=== PATIENT | female | born 1980 | race Caucasian/White ===

== ENCOUNTER 2016-05-10 09:41 | Emergency (ER) | payer OTHER ==
[2016-05-10] MEDS ORDERED: NAPROXEN 250 MG TABLET PO ONE (10:23)
[2016-05-10 10:50] VITALS: BP 141/89
--- NOTE | 2016-05-10 10:58 | ER Document Report ---
ED Oral Problem - General Chief Complaint: Mouth Problem Stated Complaint: MOUTH PAIN Mode of Arrival: Ambulatory Information source: Patient Notes: 35-year-old female presents to the emergency department complaining of right upper anterior dental pain. Patient reports had 3 teeth extracted 4 days ago and was prescribed Keflex and pain medication which she reports was taking as prescribed but states has run out of pain medication and pain has persisted . Denies fever, swelling, drainage, difficulty breathing or swallowing. TRAVEL OUTSIDE OF THE [place] IN LAST 30 DAYS: No - HPI Patient complains to provider of: Toothache Onset: Last week Quality of pain: Achy Severity: Moderate Pain Level: 3 Context: Recent dental extractions Associated symptoms: Dental decay, Toothache Similar symptoms previously: Yes Recently seen / treated by doctor/dentist: Yes - Related Data Allergies/Adverse Reactions: No Known Allergies Allergy (Verified 04/19/16 14:14) Past Medical History - General Information source: Patient - Social History Smoking Status: Former Smoker Chew tobacco use (# tins/day): No Frequency of alcohol use: None Drug Abuse: None Lives with: Family Family History: Reviewed & Not Pertinent Patient has suicidal ideation: No Patient has homicidal ideation: No Renal/ Medical History: Reports: Hx Kidney Stones Psychiatric Medical History: Reports: Hx Anxiety, Hx Bipolar Disorder Comment Only: Hx Depression - ANxiety Past Surgical History: Reports: Hx Breast Surgery - augmentation, Hx Hysterectomy, Hx Orthopedic Surgery - L5S1 fusion - Immunizations Immunizations up to date: No Hx Diphtheria, Pertussis, Tetanus Vaccination: Yes Review of Systems - Review of Systems Constitutional: No symptoms reported EENT: See HPI Cardiovascular: No symptoms reported Respiratory: No symptoms reported Gastrointestinal: No symptoms reported Genitourinary: No symptoms reported Female Genitourinary: No symptoms reported Musculoskeletal: No symptoms reported Skin: No symptoms reported Hematologic/Lymphatic: No symptoms reported Neurological/Psychological: No symptoms reported -: Yes All other systems reviewed and negative Physical Exam - Vital signs Vitals: Temp Pulse Resp BP Pulse Ox 98.8 F 121 H 18 139/102 H 98 05/10/16 09:46 05/10/16 09:46 05/10/16 09:46 05/10/16 09:46 05/10/16 09:46 - General General appearance: Appears well, Alert In distress: None - HEENT Head: Normocephalic, Atraumatic Eyes: Normal Eyelashes: Normal Pupils: PERRL Ears: Normal External canal: Normal Tympanic membrane: Normal Sinus: Normal Nasal: Normal Mouth/Lips: Caries. No: Normal, Angioedema, Dental fracture, Laceration, Lesions, Other Mucous membranes: Normal, Moist Teeth diagram: 1 - Localized tenderness to palpation at area of dental extraction. No swelling, drainage, or fluctuance. Moderate diffuse dental decay throughout mouth with multiple missing teeth. Pharynx: Normal. No: Blood in hypopharynx, Erythema, Exudate, Peritonsillar abscess, Post nasal drainage, Retropharyngeal abscess, Tonsillar hypertrophy, Uvular edema, Potential airway comprom., Other Neck: Normal. No: Anterior cervical chain, Posterior cervical chain, Lymphadenopathy, Meningismus, Subcutaneous emphysema - Respiratory Respiratory status: No respiratory distress Chest status: Nontender Breath sounds: Normal Chest palpation: Normal - Cardiovascular Rhythm: Regular Heart sounds: Normal auscultation Murmur: No Pulses: Normal: Radial Normal capillary refill: Yes Course - Re-evaluation Re-evalutation: 05/10/16 10:59 Patient hemodynamically stable, in no distress, afebrile. No abscess, trismus, or suggestion of significant deep space or soft tissue infection at this time. Home care, follow-up with PCP and dental provider, ED return precautions discussed with patient who verbalized understanding and agrees with plan. - Vital Signs Vital signs: Temp Pulse Resp BP Pulse Ox 98.8 F 107 H 18 141/89 H 96 05/10/16 09:46 05/10/16 10:48 05/10/16 10:48 05/10/16 10:48 05/10/16 10:48 Discharge - Discharge Clinical Impression: Pain, dental Condition: Stable Disposition: HOME, SELF-CARE Additional Instructions: TOOTHACHE: Your pain is due to dental decay. The tooth must be repaired in order for you to feel better. You will, therefore, be referred to a dentist. We do not have dentists on the staff at [facility]. Severe swelling or drainage around a tooth usually means a dental abscess. This also requires evaluation and treatment by the dentist, but antibiotics may be prescribed while awaiting dental treatment. You should be rechecked immediately if you develop major swelling of the face, increasing pain, a lump in the jaw or gums, headache, difficulty swallowing, or fever. Anti-Inflammatory Medication You have received a prescription for an antiinflammatory agent. This is an excellent, safe drug for pain control. In addition, it has potent antiinflammatory effects which are beneficial, especially in the treatment of injuries, arthritis, or tendonitis. It's best to take this medicine with food. Persons with ulcer disease or allergy to aspirin should notify their physician of this before taking this drug. Take the medication exactly as prescribed. Don't take additional doses unless instructed to do so by your doctor. If you develop wheezing, shortness of breath, hives, faintness, stomach pain, vomiting, or dark black stools, return for re-evaluation at once. FOLLOW-UP CARE: Continue taking your previously prescribed antibiotic as directed. Follow-up with your dental provider tomorrow. If you are unable to follow-up with your dental provider you may contact any of the clinics below to schedule a follow-up appointment. If you experience worsening or a significant change in your symptoms, notify the physician immediately or return to the Emergency Department at any time for re-evaluation. [facility] [address] [place], [place] Wednesday mornings, by appointment [facility] [address] [place] [address] [facility] [address] [facility] [address] [facility] ([facility]) [facility], [place] [facility] [address] [email or web address] [address] [place] [address] Wednesday- 8:00am to 5:00 pm Will see patients from other [facility]. Charges based on income and family size and accepts Medicare, Medicaid, and Insurances Will pull molars [facility] [id number] Hours of Operation 8:00 am - 4:30 pm weekdays The following dental offices accept Medicaid: [facility] Dr. Albert Dr. Diaz Dr. Thomson Dr. Lanier Lauro Hurt Lutsavage, and [facility] Dr. Carbajal ([place]) Dr. Gordon ([place]) [facility] Drs. Moulton ([place]) Dr. Blue ([place]) [facility] Dr. Pacheco ([place]) Drs. Huerta and ([place]) Medicaid Care Line Prescriptions: Naproxen [Naprosyn 375 Mg Tablet] 375 mg PO BIDP PRN #10 tablet PRN Reason: Forms: Elevated Blood Pressure Referrals: MARVA ADAM [Primary Care Provider] - Follow up tomorrow
== END 2016-05-10 11:05 | disposition home or self-care (01) ==
LOC: ER 09:41
DX: K08.89 Other specified disorders of teeth and supporting structures (principal); Z87.891 Personal history of nicotine dependence
CPT/HCPCS: 99282

== ENCOUNTER 2017-04-07 14:28 | Emergency (ER) | payer OTHER ==
[2017-04-07 14:35] VITALS: BP 141/82
[2017-04-07] MEDS ORDERED: OXYCODONE-ACETAMINOPHEN 5-325 MG TABLET PO ONE (15:52)
[2017-04-07] MEDS ORDERED: LIDOCAINE 5% (700 MG) TRANSDERMAL ADH..PATCH TP ONE (15:52)
--- NOTE | 2017-04-07 15:56 | ER Document Report ---
HPI - HPI Patient complains to provider of: Low back pain Onset: Other - 3 weeks Onset/Duration: Persistent Quality of pain: Sharp Pain Level: 5 Context: Patient presents complaining of low back pain for the past 3 weeks. Patient states pain will radiate into her left lower extremity. Patient does have a previous history of chronic low back pain and this is in the same location as her previous flareups. Patient denies any new injury. Patient denies any urinary retention or incontinence. Patient denies any fever or IV drug use. Associated Symptoms: Other - Low back pain. denies: Fever Exacerbated by: Movement, Walking Relieved by: Denies Similar symptoms previously: Yes Recently seen / treated by doctor: No - ROS ROS below otherwise negative: Yes Systems Reviewed and Negative: Yes All other systems reviewed and negative - CONSTITUTIONAL Constitutional: DENIES: Fever - NEURO Neurology: DENIES: Weakness - REPRODUCTIVE Reproductive: DENIES: : - MUSCULOSKELETAL Musculoskeletal: REPORTS: Extremity pain, Back Pain. DENIES: Swelling - DERM Skin Color: Normal Skin Problems: None Past Medical History - General Information source: Patient - Social History Smoking Status: Current Every Day Smoker Chew tobacco use (# tins/day): No Smoking Education Provided: Yes Frequency of alcohol use: Occasional Drug Abuse: None Occupation: None Lives with: Family Family History: Reviewed & Not Pertinent Patient has suicidal ideation: No Patient has homicidal ideation: No Renal/ Medical History: Reports: Hx Kidney Stones. Denies: Hx Peritoneal Dialysis Musculoskeltal Medical History: Reports Other - Chronic back pain Psychiatric Medical History: Reports: Hx Anxiety, Hx Bipolar Disorder Comment Only: Hx Depression - ANxiety Past Surgical History: Reports: Hx Breast Surgery - augmentation, Hx Hysterectomy, Hx Orthopedic Surgery - L5S1 fusion - Immunizations Immunizations up to date: No Hx Diphtheria, Pertussis, Tetanus Vaccination: Yes Vertical Provider Document - CONSTITUTIONAL Agree With Documented VS: Yes Exam Limitations: No Limitations General Appearance: WD/WN, No Apparent Distress Notes: PHYSICAL EXAMINATION: GENERAL: Well-appearing, well-nourished and in no acute distress. HEAD: Atraumatic, normocephalic. EYES: sclera clear, anicteric, conjunctiva are normal. ENT: nares patent, Moist mucous membranes. NECK: Normal range of motion, supple no lymphadenopathy LUNGS: respirations unlabored HEART: Regular rate and rhythm without murmurs EXTREMITIES: Normal range of motion, no pitting or edema. No cyanosis. Gait normal, pt ambulates without difficulty BACK: Left lower lumbar paraspinal tenderness, no lower lumbar midline tenderness, no deformities or step-offs. No CVA tenderness. NEUROLOGICAL: Cranial nerves grossly intact. Normal speech, normal gait. No saddle anesthesia. No foot drop PSYCH: Normal mood, normal affect. SKIN: Warm, Dry, normal turgor, no rashes or lesions noted. - INFECTION CONTROL TRAVEL OUTSIDE OF THE [place] IN LAST 30 DAYS: No - RESPIRATORY O2 Sat by Pulse Oximetry: 99 Course - Re-evaluation Re-evalutation: 04/07/17 15:53 The patient has been informed that they may have pre-hypertension or hypertension based on a blood pressure reading in the emergency department. I recommend that patient call the primary care provider listed on their discharge instructions or a physician of their choice by this week to arrange follow-up for further evaluation of possible pre-hypertension or hypertension. Controlled substance database reviewed 04/07/17 15:55 Patient advised not to take the pain medication she is taking her Klonopin. Patient advised to take one medication or the other not both together. The patient presents with low back pain without signs of spinal cord compression, cauda equina syndrome, infection, aneurysm, or other serious etiology. The patient is neurologically intact. Given the extremely risk of these diagnoses further testing and evaluation for these possibilities does not appear to be indicated at this time. Patient has been instructed to return if the symptoms worsen or change in any way. - Vital Signs Vital signs: Temp Pulse Resp BP Pulse Ox 98.0 F 88 18 141/82 H 99 04/07/17 14:34 04/07/17 14:34 04/07/17 14:34 04/07/17 14:34 04/07/17 14:34 Discharge - Discharge Clinical Impression: Elevated blood pressure reading Low back pain Qualifiers: Chronicity: unspecified Back pain laterality: left Sciatica presence: with sciatica Sciatica laterality: sciatica of left side Qualified Code(s): M54.42 - Lumbago with sciatica, left side Condition: Stable Disposition: HOME, SELF-CARE Instructions: Ice Packs ([facility]), Low Back Pain ([facility]), Oral Narcotic Medication ( [facility]) Additional Instructions: Return immediately for any new or worsening symptoms Followup with your primary care provider, call tomorrow to make a followup appointment Prescriptions: Oxycodone HCl/Acetaminophen [Percocet 5-325 mg Tablet] 1 tab PO ASDIR PRN #12 tablet PRN Reason: Prednisone [Deltasone 20 mg Tablet] 3 tab PO DAILY 5 Days tablet Forms: Elevated Blood Pressure, Smoking Cessation Education Referrals: ANAYELI ADAM MD [NO LOCAL MD] - Follow up as needed MARVA ADAM PA [NO LOCAL MD] - Follow up as needed
== END 2017-04-07 16:16 | disposition home or self-care (01) ==
LOC: ER 14:28
DX: M54.42 Lumbago with sciatica, left side (principal); R03.0 Elevated blood-pressure reading, without diagnosis of hypertension; F41.9 Anxiety disorder, unspecified; Z79.899 Other long term (current) drug therapy; F17.200 Nicotine dependence, unspecified, uncomplicated; Z71.6 Tobacco abuse counseling
CPT/HCPCS: 99283

== ENCOUNTER 2017-05-10 11:26 | Emergency (ER) | payer OTHER ==
[2017-05-10] MEDS ORDERED: DEXAMETHASONE SOD PHOS INJ 10 MG/1 ML VIAL IM ONE (12:27)
[2017-05-10] MEDS ORDERED: LIDOCAINE 5% (700 MG) TRANSDERMAL ADH..PATCH TP ONE (12:27)
--- NOTE | 2017-05-10 14:00 | RADIOLOGY REPORT (SQ) ---
EXAM DESCRIPTION: L SPINE WHOLE COMPLETED DATE/TIME: 05/10/2017 1:26 pm REASON FOR STUDY: Pain to the low back worse down the left leg COMPARISON: None. NUMBER OF VIEWS: Five views including obliques. TECHNIQUE: AP, lateral, oblique, and sacral radiographic images acquired of the lumbar spine. LIMITATIONS: None. FINDINGS: MINERALIZATION: Normal. SEGMENTATION: Normal. No transitional anatomy. ALIGNMENT: Normal. VERTEBRAE: Maintained height. No fracture or worrisome bone lesion. DISCS: Prior discectomy and fusion at L5-S1 with disc space prosthesis and bilateral L5 and S1 transp edicular screws with dorsal fixation plates POSTERIOR ELEMENTS: Pedicles and facets are intact. No pars defect or posterior arch defects. HARDWARE: Fusion hardware at L5-S1 PARASPINAL SOFT TISSUES: Normal. PELVIS: Intact as visualized. No fractures or worrisome bone lesions. SI joints intact. OTHER: No other significant finding. IMPRESSION: Old fusion at L5-S1. No acute findings TECHNICAL DOCUMENTATION: JOB ID: [id number]- All Rights Reserved
--- NOTE | 2017-05-10 14:43 | ER Document Report ---
ED Neck/Back Problem - General Chief Complaint: Back Pain Stated Complaint: FALL/BACK PAIN Time Seen by Provider: 05/10/17 11:51 Mode of Arrival: Ambulatory Information source: Patient Notes: 36-year-old female presented to ED for complaint of pain after a fall yesterday she states she has chronic back pain but was unable to see pain management until the . She states she fell yesterday landing on her buttocks and then her back did not go to the ED yesterday. States she was going to pain management 2 years ago and has not seen a doctor in last 2-3 months. Pain is on the left side going down the left leg. She did contact pain management on Wednesday and they do have an appointment for the . She has tried Motrin took Motrin and 800 an hour ago for naproxen at 3 AM took Tylenol at 975 at an hour before visit. [place] TRAVEL OUTSIDE OF THE [place] IN LAST 30 DAYS: No - HPI Patient complains to provider of: Pain, Lower back Onset: Yesterday Where: Home, Outdoors Onset: Chronic Timing: Still present Quality of pain: Sharp, Throbbing Severity: Severe Pain Level: 5 Context: Fall/near-fall Recent injury: Yes Associated symptoms: Like prior neck/back pain, Numbness/tingling, Radiation to leg, Lower back pain. denies: Constipation, Fever, Incontinence, Motor loss, Sensory loss, Sweaty, Unable to urinate, Upper back pain Exacerbated by: Movement of trunk, Sitting position Relieved by: Nothing Similar symptoms previously: Yes Recently seen / treated by doctor: Yes - Related Data Allergies/Adverse Reactions: No Known Allergies Allergy (Verified 04/19/16 14:14) Past Medical History - General Information source: Patient - Social History Smoking Status: Current Every Day Smoker Cigarette use (# per day): Yes Chew tobacco use (# tins/day): No Smoking Education Provided: Yes - 4 minutes Frequency of alcohol use: Occasional Drug Abuse: None Lives with: Family Family History: Reviewed & Not Pertinent Patient has suicidal ideation: No Patient has homicidal ideation: No - Past Medical History Cardiac Medical History: Reports: None Pulmonary Medical History: Reports: None EENT Medical History: Reports: None Endocrine Medical History: Reports: None Renal/ Medical History: Reports: Hx Kidney Stones Malignancy Medical History: Reports: None GI Medical History: Reports: None Musculoskeltal Medical History: Reports Hx Arthritis, Reports Hx Musculoskeletal Deformity, Reports Hx Musculoskeletal Trauma Skin Medical History: Reports None Psychiatric Medical History: Reports: Hx Anxiety, Hx Bipolar Disorder, Hx Depression - ANxiety Traumatic Medical History: Reports: None Infectious Medical History: Reports: None Past Surgical History: Reports: Hx Breast Surgery - augmentation, Hx Hysterectomy, Hx Orthopedic Surgery - L5S1 fusion - Immunizations Immunizations up to date: Yes Hx Diphtheria, Pertussis, Tetanus Vaccination: Yes Review of Systems - Review of Systems Constitutional: No symptoms reported EENT: No symptoms reported Cardiovascular: No symptoms reported Respiratory: No symptoms reported Gastrointestinal: No symptoms reported. denies: Constipation, Fecal incontinence Genitourinary: No symptoms reported. denies: Incontinence, Retention Female Genitourinary: No symptoms reported Musculoskeletal: Back pain, Muscle pain, Muscle stiffness Skin: No symptoms reported Hematologic/Lymphatic: No symptoms reported Neurological/Psychological: No symptoms reported -: Yes All other systems reviewed and negative Physical Exam - Vital signs Vitals: Temp Pulse Resp BP Pulse Ox 98.3 F 114 H 20 117/79 100 05/10/17 11:32 05/10/17 11:32 05/10/17 11:32 05/10/17 11:32 05/10/17 11:32 Interpretation: Normal - General General appearance: Appears well, Alert - HEENT Head: Normocephalic, Atraumatic Eyes: Normal Pupils: PERRL - Respiratory Respiratory status: No respiratory distress Chest status: Nontender Breath sounds: Normal Chest palpation: Normal - Cardiovascular Rhythm: Regular Heart sounds: Normal auscultation Murmur: No - Abdominal Inspection: Normal Distension: No distension Bowel sounds: Normal Tenderness: Nontender Organomegaly: No organomegaly - Back Back: Normal, Tender, Vertebra tenderness. No: Deformity/step-off, CVA tenderness, Scars, Scoliosis, Wounds Notes: Patient denies any loss control of bowel bladder, loss of control of lower extremities, saddle anesthesia, or any loss of sensation to the lower extremities. Patient has no signs or symptoms of cauda equina the patient is able to walk with a steady gait but does have some pain when getting up and down from the bed. Patient was treated with Decadron IM and lidocaine patch in the emergency room. She was instructed [place] management doctor and a back specialist. - Extremities General upper extremity: Normal inspection, Nontender, Normal color, Normal ROM , Normal temperature General lower extremity: Normal inspection, Nontender, Normal color, Normal ROM , Normal temperature, Normal weight bearing. No: Mini's sign - Neurological Neuro grossly intact: Yes Cognition: Normal Orientation: AAOx4 Adrian Coma Scale Eye Opening: Spontaneous Monroe Coma Scale Verbal: Oriented Adrian Coma Scale Motor: Obeys Commands Adrian Coma Scale Total: 15 Speech: Normal Motor strength normal: LUE, RUE, LLE, RLE Sensory: Normal - Psychological Associated symptoms: Normal affect, Normal mood - Skin Skin Temperature: Warm Skin Moisture: Dry Skin Color: Normal Course - Re-evaluation Re-evalutation: 05/10/17 21:54 Patient denies any loss control of bowel bladder, loss of control of lower extremities, saddle anesthesia, or any loss of sensation to the lower extremities. Patient has no signs or symptoms of cauda equina the patient is able to walk with a steady gait but does have some pain when getting up and down from the bed. Patient was treated with Decadron IM and lidocaine patch in the emergency room. She was instructed to [place] pain management doctor and a back specialist. Patient given prescriptions for Flexeril ibuprofen and Lidoderm patches. - Vital Signs Vital signs: Temp Pulse Resp BP Pulse Ox 98.3 F 114 H 20 117/79 100 05/10/17 11:32 05/10/17 11:32 05/10/17 11:32 05/10/17 11:32 05/10/17 11:32 - Diagnostic Test Radiology reviewed: Image reviewed, Reports reviewed Discharge - Discharge Clinical Impression: Low back pain Qualifiers: Chronicity: chronic Back pain laterality: left Sciatica presence: with sciatica Sciatica laterality: sciatica of left side Qualified Code(s): M54.42 - Lumbago with sciatica, left side; G89.29 - Other chronic pain; G89.29 - Other chronic pain Additional Instructions: LOW BACK PAIN: Three out of every four people will have an episode of disabling back pain during their lifetime. Most commonly the pain is due to straining of the muscles and ligaments in the low back. Usual treatment includes: (1) Rest on a firm surface. Avoid lying on your stomach. (2) Ice pack the painful area. After a few days, gentle heat may be used intermittently to relax the area, or ice packs can be continued. (3) Medication may be needed -- muscle relaxers and antiinflammatory medicines are commonly used. (4) As the back improves, exercises are prescribed to strengthen the back and abdominal muscles. Your doctor will advise you on the proper care for your back at each stage in your recovery. You may be better in a few days -- or healing may take several weeks. If new symptoms of a "herniated disc" (radiation of pain, numbness, or tingling down the back of the leg or weakness in the leg) occur, you should be re-examined. Further testing may be necessary. Chronic Pain Control Stress, inactivity, and depression make pain more severe regardless of the cause of the pain. Stress and poor physical condition can cause pain such as headaches and backache. Relaxation: Rest in a quiet place with your eyes closed for 20 minutes twice daily. Concentrate on a pleasant image, or simply "feel" your breathing. Clear your mind. Stress management: Deal with your "stressors." Either take action, or eliminate the stressor from your life. Don't let things hang over you. Accept those things you can't change. Nutrition: Eat small, balanced meals -- don't skip, don't overeat. Meals should be high-carbohydrate, low-sugar, low-fat. Exercise: Exercise helps painful conditions and eases stress. Get 30 minutes of moderate exercise, five days a week. Do an activity that does not flare your pain. Precautions: Pain which continues to disrupt daily activities, or which changes in nature, requires a medical evaluation. Pain Clinic referral is available. We do not manage chronic pain in the Emergency Department. We will try to appropriately help you through an acute flare of your chronic painful condition , but for on-going chronic pain that does not improve, you will need to see your private doctor or lead based paint technician. We do not provide repeated medication management of chronic painful conditions. If you wish, we can provide the name of local pain management physicians. Dated the Lidoderm patch I put on you today at in the emergency room has helped so I will write you a prescription for those. MUSCLE RELAXERS: Muscle relaxing medications are usually prescribed for acute muscle spasm or injury to the neck and back. They are often combined with antiinflammatory pain medication for increased relief. You may stop the muscle relaxer when the pain and stiffness have improved. Start the medication again if spasms recur. Muscle relaxers may cause drowsiness, especially with the first dose. Do not operate machinery or drive while under the effects of the medication. Most muscle relaxers last up to 24 hours. Do not combine the medication with alcohol. ICE PACKS: Apply ice packs frequently against the painful area. Many different schedules are recommended, such as "20 minutes on, 20 minutes off" or "one hour ice, two hours rest." If you need to work, you may need to go longer between ice treatments. You should plan to have the area ice packed AT LEAST one fourth of the time. The ice should be applied over the wrap, tape, or splint, or over a layer of cloth -- not directly against the skin. Some ice bags have a built-in cloth and can be put directly on the skin. WARM PACKS: After approximately two days, apply gentle heat (such as a heating pad or hot water bottle) for about 20 to 30 minutes about every two hours -- at least four times daily. Warmth and elevation will help you make a more rapid recovery , and will ease the pain considerably. Do not use HOT heat, and never apply heat for longer than 30 minutes. The continuous heat can invisibly damage skin and muscles -- even when no burn is seen on the surface. Damaged muscles can make you MORE sore. Stretching Exercises for the Back The physician has recommended that you begin stretching exercises for your back. These are often used even while the back is painful. However, you should notify the physician if the activities seem to increase your pain. PELVIC TILT: Lie flat on your back with knees bent. Tighten your stomach and buttock muscles so it flattens your lower back against the floor. Hold 10 seconds. Repeat 10 times, twice daily. KNEE RAISE: Lying on the back with knees bent, raise one knee to your chest, then the other. Hold both knees against the chest 10 seconds, then lower one knee at a time. Repeat 10 times, twice daily. PARTIAL TRUNK RAISE: Lie face down, arms at your sides. Keeping your waist on the floor, use your arms raise your chest up. Support yourself on your elbows for 30 seconds. Repeat twice daily, increasing the time to two minutes as you recover. STEROID MEDICATION: You have been given an injection of medicine of the cortisone/steroid class. This medication is used to control inflammation or allergy. It is often continued as a pill for a short period of time, until the acute process subsides. There are usually no side effects from short-term use of cortisone-like medications. Some persons feel an increased sense of well-being and are not sleepy at bedtime. Long-term use of cortisone medications is best avoided, unless required for a severe condition. If your condition does not remit, or relapses after the course of corticosteroid medication, you should consult your physician. FOLLOW-UP CARE: If you have been referred to a physician for follow-up care, call the physician s office for an appointment as you were instructed or within the next two days. If you experience worsening or a significant change in your symptoms, notify the physician immediately or return to the Emergency Department at any time for re-evaluation. Prescriptions: Ibuprofen [Motrin 600 mg Tablet] 600 mg PO Q8HP PRN #14 tablet PRN Reason: Cyclobenzaprine HCl [Flexeril 10 mg Tablet] 10 mg PO TIDP PRN #15 tab PRN Reason: Lidocaine [Lidoderm 5% (700 mg) Transdermal Patch] 1 patch TP DAILY #30 adh..patch Forms: Smoking Cessation Education Referrals: MARVA ADAM PA [Primary Care Provider] - Follow up as needed FRANNY LOBATO MD [ASSOCIATE] - Follow up as needed
[2017-05-10 14:52] VITALS: BP 116/70
== END 2017-05-10 14:52 | disposition home or self-care (01) ==
LOC: ER 11:26
DX: G89.29 Other chronic pain (principal); M54.42 Lumbago with sciatica, left side; Z91.81 History of falling; F17.200 Nicotine dependence, unspecified, uncomplicated; Z71.6 Tobacco abuse counseling; Z98.1 Arthrodesis status
CPT/HCPCS: 99406; 99283; 96372; 72110; J1100

== ENCOUNTER 2017-09-24 21:05 | Emergency (ER) | payer OTHER ==
[2017-09-24] MEDS ORDERED: KETOROLAC TROMETHAMINE INJ/PF 30 MG/1 ML SDV IM ONE (23:23)
--- NOTE | 2017-09-24 23:23 | RADIOLOGY REPORT (SQ) ---
EXAM DESCRIPTION: XR FOOT 3 OR MORE VIEWS CLINICAL HISTORY: 37 years Female, left foot pain COMPARISON: 04.19.16 Findings: 0.3 cm ossicular fragment at the lateral aspect of the first distal phalangeal base. Bipartite tibial sesamoid. . Bones, joints, and soft tissues of the XR FOOT LEFT 3 OR MORE VIEWS appear otherwise intact. IMPRESSION: No acute findings.
--- NOTE | 2017-09-24 23:33 | ER Document Report ---
ED Extremity Problem, Lower - General Chief Complaint: Foot Pain Stated Complaint: FOOT INJURY Time Seen by Provider: 09/24/17 21:52 Mode of Arrival: Ambulatory Information source: Patient TRAVEL OUTSIDE OF THE [place] IN LAST 30 DAYS: No - HPI Patient complains to provider of: Pain Location: Foot Notes: Patient is here with complaints of left foot pain. The patient states that she has had left foot pain for about the last 3-5 days. She denies any specific trauma or injury. She states that she does not have a car right now and has been walking a lot more than normal and flip-flops and is not sure if this has something to do with her pain. She has had prior stress fractures in her right foot, and states this feels similar to stress fracture she has had in the past. No fever. No redness. No swelling. No numbness, tingling, weakness. No chest pain or shortness of breath. No nausea, vomiting, diarrhea. No rashes. Pain is worse with ambulation, nothing makes it better. No other complaints at this time. - Related Data Allergies/Adverse Reactions: No Known Allergies Allergy (Verified 04/19/16 14:14) Past Medical History - Social History Smoking Status: Unknown if Ever Smoked Family History: Reviewed & Not Pertinent Patient has suicidal ideation: No Patient has homicidal ideation: No Renal/ Medical History: Reports: Hx Kidney Stones. Denies: Hx Peritoneal Dialysis Musculoskeltal Medical History: Reports Hx Arthritis, Reports Hx Musculoskeletal Deformity, Reports Hx Musculoskeletal Trauma Psychiatric Medical History: Reports: Hx Anxiety, Hx Bipolar Disorder, Hx Depression - ANxiety Past Surgical History: Reports: Hx Breast Surgery - augmentation, Hx Hysterectomy, Hx Orthopedic Surgery - L5S1 fusion - Immunizations Immunizations up to date: Yes Hx Diphtheria, Pertussis, Tetanus Vaccination: Yes Review of Systems - Review of Systems -: Yes All other systems reviewed and negative Physical Exam - Notes Notes: GENERAL: alert, cooperative, nontoxic, no distress. HEAD: normocephalic, atraumatic EYES: conjunctiva pink without discharge, no external redness or swelling. EARS: no external swelling, no external redness NOSE: atraumatic, no external swelling MOUTH/THROAT: mucous membranes moist and pink NECK: soft, supple, full range of motion, no meningismus. CHEST: no distress, lungs clear and equal throughout. No wheezing, rales, rhonchi. CARDIAC: regular rate and rhythm, no murmur, normal capillary refill, normal pulses. BACK: full range of motion, no CVA tenderness. EXTREMITIES: full range of motion of all extremities. No redness, no swelling. Tenderness to palpation along the dorsum of the left foot. Normal pulse and sensation. Full range of motion. No ankle tenderness. Achilles is intact with a normal Small's test. Compartments are soft. No proximal tib-fib tenderness. Friction blister noted to the lateral aspect as well as medial aspect of the foot. No redness or drainage. No signs of infection. NEURO: alert and oriented 3, no focal deficits, full range of motion of all extremities. PYSCH: appropriate mood, affect. Patient is cooperative. SKIN: pink, warm, dry, no rash. Course - Re-evaluation Re-evalutation: 09/24/17 23:30 Patient is nontoxic appearing with stable vitals. The patient is here with complaints of left foot pain. She denies any specific injury or fall. She has been walking a lot more due to not having a car and is concerned she may have a foot fracture. She has had prior stress fractures to the right foot. She states this feels similar to that. She denies any other complaints at this time. There is no redness or signs of infection. X-rays are negative for acute fracture. It is possible that she could have a stress fracture here. At this point the patient will be placed in a postop shoe and given crutches. She will be discharged home with a prescription for Voltaren. Instructions to rest , ice, elevate. Follow-up if not better in 1 week, sooner for worsening pain, fever, numbness, tingling, weakness, any further concerns. - Diagnostic Test Radiology reviewed: Image reviewed, Reports reviewed - Negative left foot Procedures - Immobilization Left foot Pre-Proc Neuro Vasc Exam: Normal Immobilizer type: Post-op shoe Performed by: JASE Post-Proc Neuro Vasc Exam: Normal Alignment checked and good: Yes Discharge - Discharge Clinical Impression: Left foot pain Condition: Stable Disposition: HOME, SELF-CARE Instructions: Muscle Strain ([facility]), Tendon Strain ([facility]) Additional Instructions: Her postop shoe and use crutches as needed for comfort. Rest, ice, elevate. Take medications as prescribed. Do not take ibuprofen while taking this prescribed medication. You may continue to take Tylenol as needed for pain. Follow-up if not better in 1 week, sooner for worsening pain, fever, redness, numbness, tingling, weakness, any further concerns. Prescriptions: Diclofenac Sodium [Voltaren 50 Mg Tablet.] 50 mg PO BID #20 tablet.dr Forms: Smoking Cessation Education Referrals: [facility] [Provider Group] - Follow up as needed MAIRA HYDE MD [ACTIVE STAFF] - Follow up as needed FAVIOLA FULTON DPM [ACTIVE STAFF] - Follow up as needed KARTIK FRANKLIN DPM [ACTIVE STAFF] - Follow up as needed DIRK PAREKH DPM [ACTIVE STAFF] - Follow up as needed AMANDA FRAUSTO DPM [ACTIVE STAFF] - Follow up as needed FOREST COOK DPM [NO LOCAL MD] - Follow up as needed WADE WINN DPM [NO LOCAL MD] - Follow up as needed
[2017-09-24 23:52] VITALS: BP 139/86
== END 2017-09-24 23:52 | disposition home or self-care (01) ==
LOC: ER 21:05
DX: M79.672 Pain in left foot (principal); M79.671 Pain in right foot; Z90.710 Acquired absence of both cervix and uterus; Z98.1 Arthrodesis status
CPT/HCPCS: 99283; 96372; 73630; J1885

== ENCOUNTER 2017-10-19 20:58 | Emergency (ER) | payer OTHER ==
[2017-10-19 21:45] VITALS: BP 138/86
[2017-10-19] MEDS ORDERED: KETOROLAC TROMETHAMINE INJ/PF 30 MG/1 ML SDV IM ONE (23:58)
[2017-10-19] MEDS ORDERED: TRAMADOL HCL 50 MG TABLET PO ONE (23:58)
--- NOTE | 2017-10-20 00:04 | ER Document Report ---
ED Neck/Back Problem - General Chief Complaint: Low Back Pain Stated Complaint: LOW BACK PAIN Time Seen by Provider: 10/19/17 23:45 Mode of Arrival: Ambulatory Information source: Patient TRAVEL OUTSIDE OF THE [place] IN LAST 30 DAYS: No - HPI Patient complains to provider of: Pain, Lower back Notes: Patient is here with complaints of lower back pain. The patient states she has been dealing with this low back pain for the last 12 years. She has had radiofrequency procedures performed to "burn the nerves "which has helped her pain in the past. She states that over the last 4 months, her pain has been getting progressively worse. She has seen her primary care doctor who [place] Since [place] have recently changed her to retired, that pain provider did not accept the referral. She now has a new referral with a new pain management doctor in 3 weeks. She states that her primary care doctor will not prescribe her any medication for her chronic pain. She is on gabapentin as well as Klonopin. She takes this both for neuropathic pain as well as for mood stabilization. She denies any recent falls or injuries. She states the pain is in her left lower back and radiates down her left leg. Feels like previous pain she has had in the past. She denies any chest pain or shortness of breath. She denies abdominal pain. She denies nausea, vomiting, diarrhea. No dysuria or hematuria. She denies being on blood thinners. She denies IV drug use. She denies any new rashes. Pain is worse with any sort of movement, nothing seems to make it better. She denies any other complaints at this time. - Related Data Allergies/Adverse Reactions: No Known Allergies Allergy (Verified 04/19/16 14:14) Past Medical History - Social History Smoking Status: Unknown if Ever Smoked Chew tobacco use (# tins/day): No Frequency of alcohol use: None Drug Abuse: None Family History: Reviewed & Not Pertinent Patient has suicidal ideation: No Patient has homicidal ideation: No Renal/ Medical History: Reports: Hx Kidney Stones. Denies: Hx Peritoneal Dialysis Musculoskeltal Medical History: Reports Hx Arthritis, Reports Hx Musculoskeletal Deformity, Reports Hx Musculoskeletal Trauma Psychiatric Medical History: Reports: Hx Anxiety, Hx Bipolar Disorder, Hx Depression - ANxiety Past Surgical History: Reports: Hx Breast Surgery - augmentation, Hx Hysterectomy, Hx Orthopedic Surgery - L5S1 fusion - Immunizations Immunizations up to date: Yes Hx Diphtheria, Pertussis, Tetanus Vaccination: Yes Review of Systems - Review of Systems -: Yes All other systems reviewed and negative Physical Exam - Vital signs Vitals: Temp Pulse Resp BP Pulse Ox 98.1 F 83 18 138/86 H 100 10/19/17 21:42 10/19/17 21:42 10/19/17 21:42 10/19/17 21:42 10/19/17 21:42 - Notes Notes: GENERAL: alert, cooperative, nontoxic, no distress. HEAD: normocephalic, atraumatic EYES: conjunctiva pink without discharge, no external redness or swelling. EARS: no external swelling, no external redness NOSE: atraumatic, no external swelling MOUTH/THROAT: mucous membranes moist and pink, posterior pharynx without erythema, swelling, exudate. No trismus or drooling. NECK: soft, supple, full range of motion, no meningismus. CHEST: no distress, lungs clear and equal throughout. No wheezing, rales, rhonchi. CARDIAC: regular rate and rhythm, no murmur, normal capillary refill, normal pulses. No peripheral edema noted. ABDOMEN: soft, nontender, no pusatile mass. BACK: No CVA tenderness. Tenderness to the left lumbar paraspinal muscles. Slightly limited range of motion of lower back secondary to pain. EXTREMITIES: full range of motion of all extremities. No redness, no swelling. NEURO: alert and oriented A&O x 3, no focal deficits, full range of motion of all extremities. 5 out of 5 flexion and extension of the lower extremities bilaterally. Patellar and Achilles deep tendon reflexes are +2 bilaterally. Normal sensation with no saddle anesthesia. Patient can dorsiflex the great toes bilaterally. PYSCH: appropriate mood, affect. Patient is cooperative. SKIN: pink, warm, dry, no rash. Scarring to the lower back from chronic heating pad use. No redness, cellulitis or infection. Course - Re-evaluation Re-evalutation: 10/20/17 00:01 Patient is nontoxic-appearing with stable vitals. She is here with complaints of chronic low back pain. She has had this pain for 12 years. Seems to have gotten worse over the last few years. No recent falls or injuries. She has no risk or signs of cauda equina, epidural abscess bleed, discitis, osteomyelitis, pyelonephritis, AAA. She has a benign nonfocal exam with no deficits at this time. She states that this pain is a chronic pain that she always deals with. At this point she does not require further workup. She will be given a dose of Toradol and tramadol here in the emergency department. Due to her radicular symptoms, I will place her on some prednisone. She was instructed to follow-up with her primary care doctor she feels like she needs pain medication other than the Neurontin that she is already taking. She should follow-up sooner if she has any bowel or bladder dysfunction, severe worsening pain, abdominal pain , persistent vomiting, difficulty controlling bowels or bladder, or for any further concerns. The patient is noted to have elevated blood pressure during today's emergency department visit. The patient was informed of this finding. The patient was instructed that this may be related to pre-hypertension and requires further evaluation with a primary care provider. The patient has no hypertensive symptoms at this time. The patient's emergency department workup and current diagnosis were explained to the patient and or family. Follow-up instructions were provided. Medications if prescribed were discussed. Instructions for when to return to the emergency department including specific worrisome symptoms were discussed with the patient and/or family. - Vital Signs Vital signs: Temp Pulse Resp BP Pulse Ox 98.1 F 83 18 138/86 H 100 10/19/17 21:42 10/19/17 21:42 10/19/17 21:42 10/19/17 21:42 10/19/17 21:42 Discharge - Discharge Clinical Impression: Chronic low back pain Qualifiers: Back pain laterality: left Sciatica presence: with sciatica Sciatica laterality : sciatica of left side Qualified Code(s): M54.42 - Lumbago with sciatica, left side; G89.29 - Other chronic pain; G89.29 - Other chronic pain Condition: Stable Disposition: HOME, SELF-CARE Instructions: Low Back Pain ([facility]), Chronic Back Pain ([facility]) Additional Instructions: Take medications as prescribed. Continue taking her gabapentin. Follow-up with your primary care doctor at the next available appointment for recheck. Follow-up with your new pain specialist as scheduled in 3 weeks. Follow-up sooner for worsening pain, difficulty controlling her bowels or bladder, high fever, persistent vomiting, severe abdominal pain, or for any further concerns. Your blood pressure was elevated during today's visit. Have this rechecked with your doctor. Prescriptions: Prednisone 5 mg PO ASDIR 18 Days tab.ds.pk Forms: Elevated Blood Pressure, Smoking Cessation Education Referrals: [facility] [Provider Group] - Follow up as needed
== END 2017-10-20 00:20 | disposition home or self-care (01) ==
LOC: ER 20:58
DX: M54.42 Lumbago with sciatica, left side (principal); G89.29 Other chronic pain; M54.5 Low back pain; R03.0 Elevated blood-pressure reading, without diagnosis of hypertension; Z87.442 Personal history of urinary calculi; Z90.710 Acquired absence of both cervix and uterus; Z98.1 Arthrodesis status
CPT/HCPCS: 99283; 96372; J1885

== ENCOUNTER 2017-12-08 16:52 | Emergency (ER) | payer OTHER ==
--- NOTE | 2017-12-08 17:32 | ER Document Report ---
ED Medical Screen (RME) - General Chief Complaint: Flank Pain Stated Complaint: ABDOMINAL/BACK PAIN Time Seen by Provider: 12/08/17 17:30 Notes: 37 years old female presents today with left lower quadrant abdominal pain/left pelvic pain. For the last several weeks to month. Denies any vagina discharge but been currently treated for bacterial vaginosis. Denies any fever chills or other constitutional symptoms. TRAVEL OUTSIDE OF THE [place] IN LAST 30 DAYS: No - Related Data Allergies/Adverse Reactions: No Known Allergies Allergy (Verified 04/19/16 14:14) Past Medical History - Social History Chew tobacco use (# tins/day): No Frequency of alcohol use: None Drug Abuse: None Renal/ Medical History: Reports: Hx Kidney Stones. Denies: Hx Peritoneal Dialysis Musculoskeltal Medical History: Reports Hx Arthritis, Reports Hx Musculoskeletal Deformity, Reports Hx Musculoskeletal Trauma Psychiatric Medical History: Reports: Hx Anxiety, Hx Bipolar Disorder, Hx Depression - ANxiety Past Surgical History: Reports: Hx Breast Surgery - augmentation, Hx Hysterectomy, Hx Orthopedic Surgery - L5S1 fusion - Immunizations Immunizations up to date: Yes Hx Diphtheria, Pertussis, Tetanus Vaccination: Yes Physical Exam - Vital signs Vitals: Temp Pulse Resp BP Pulse Ox 98.9 F 100 18 133/77 H 100 12/08/17 17:01 12/08/17 17:01 12/08/17 17:01 12/08/17 17:01 12/08/17 17:01 Course - Vital Signs Vital signs: Temp Pulse Resp BP Pulse Ox 98.9 F 100 18 133/77 H 100 12/08/17 17:01 12/08/17 17:01 12/08/17 17:01 12/08/17 17:01 12/08/17 17:01 Doctor's Discharge - Discharge Referrals: LOCALMD,NO [Primary Care Provider] - Follow up as needed
[2017-12-08 18:32] LABS: ABSOLUTE EOSINOPHILS # (AUTO) 0.1 10^3/uL (0.0-0.6); ABSOLUTE LYMPHOCYTES (AUTO) 3.6 10^3/uL (0.5-4.7); ABSOLUTE MONOCYTES (AUTO) 0.5 10^3/uL (0.1-1.4); ABSOLUTE NEUT (AUTO) 6.7 10^3/uL (1.7-8.2); BASOPHILS % (AUTO) 0.4 % (0-2); EOSINOPHILS % (AUTO) 1.1 % (0-6); HEMATOCRIT 37.9 % (36.0-47.0); HEMOGLOBIN 13.1 g/dL (12.0-15.5); LYMPHOCYTES % (AUTO) 32.9 % (13-45); MEAN CORPUSCULAR HGB CONC 34.5 g/dL (32.0-36.0); MEAN CORPUSCULAR VOLUME 99 fl (80-97); MONOCYTES % (AUTO) 4.2 % (3-13); PLATELET COUNT 377 10^3/uL (150-450); RED BLOOD COUNT 3.84 10^6/uL (3.72-5.28); RED CELL DISTRIBUTION WIDTH 12.7 % (11.5-14.0); SEGMENTED NEUTROPHILS % (AUTO) 61.4 % (42-78); TOTAL CELLS COUNTED % (AUTO) 100 %; WHITE BLOOD COUNT 10.8 10^3/uL (4.0-10.5)
[2017-12-08 18:43] LABS: APPEARANCE,URINE CLOUDY; BILIRUBIN,URINE NEGATIVE (NEGATIVE); GLUCOSE, URINE NEGATIVE (NEGATIVE); KETONES,URINE NEGATIVE (NEGATIVE); LEUKOCYTE ESTERASE,URINE NEGATIVE (NEGATIVE); NITRITE,URINE NEGATIVE (NEGATIVE); PROTEIN,URINE 30 mg/dL (NEGATIVE); URINE SPECIFIC GRAVITY 1.028; UROBILINOGEN,URINE NEGATIVE mg/dL (<2.0)
[2017-12-08 18:44] LABS: COLOR,URINE YELLOW
--- NOTE | 2017-12-08 18:48 | RADIOLOGY REPORT (SQ) ---
EXAM DESCRIPTION: U/S NON-OB PELVIS TV W/O DOP COMPLETED DATE/TIME: 12/08/2017 6:24 pm REASON FOR STUDY: Pelvic pain COMPARISON: None. TECHNIQUE: Dynamic and static grayscale images acquired of the pelvis via transvaginal approach and recorded on PACS. Additional selected color Doppler and spectral images recorded. LIMITATIONS: None. FINDINGS: UTERUS: Surgically absent. ENDOMETRIAL STRIPE: Not applicable. CERVIX: Not applicable. RIGHT OVARY AND DOPPLER: Normal size. No worrisome masses. Normal arterial vascular flow without evid ence for torsion. LEFT OVARY AND DOPPLER: Ovary not seen. FREE FLUID: None noted. OTHER: No other significant finding. MEASUREMENTS: UTERUS: Surgically absent ENDOMETRIAL STRIPE: Not applicable RIGHT OVARY: 3.4 x 2.1 x 1.7 cm LEFT OVARY: Ovary not seen. IMPRESSION: Normal right ovary. No pelvic masses are seen. Uterus is absent. TECHNICAL DOCUMENTATION: JOB ID: [id number] [employer]- All Rights Reserved Rev-09/17 Reading location - IP/workstation name: [email or web address]
[2017-12-08 18:54] LABS: ALANINE AMINOTRANSFERASE 26 U/L (9-52); ALBUMIN 4.5 g/dL (3.5-5.0); ALKALINE PHOSPHATASE 45 U/L (38-126); ANION GAP 12 (5-19); ASPARTATE AMINO TRANSFERASE 26 U/L (14-36); BILIRUBIN,DIRECT 0.3 mg/dL (0.0-0.4); BILIRUBIN,TOTAL 0.4 mg/dL (0.2-1.3); BLOOD UREA NITROGEN 11 mg/dL (7-20); CALCIUM 9.5 mg/dL (8.4-10.2); CARBON DIOXIDE 24 mmol/L (22-30); CHLORIDE 107 mmol/L (98-107); GLUCOSE 72 mg/dL (75-110); LIPASE 63.1 U/L (23-300); POTASSIUM 4.4 mmol/L (3.6-5.0); SODIUM 142.9 mmol/L (137-145); TOTAL PROTEIN 7.5 g/dL (6.3-8.2)
[2017-12-08 19:04] LABS: URINE AMPHETAMINES SCREEN NEGATIVE; URINE BARBITURATES SCREEN NEGATIVE; URINE BENZODIAZEPINES SCREEN NEGATIVE; URINE COCAINE SCREEN NEGATIVE; URINE MARIJUANA (THC) SCREEN NEGATIVE; URINE METHADONE SCREEN NEGATIVE; URINE PHENCYCLIDINE SCREEN NEGATIVE
[2017-12-08] MEDS ORDERED: KETOROLAC TROMETHAMINE 60 MG/2 ML SDV IM ONE (19:38)
--- NOTE | 2017-12-08 21:14 | ER Document Report ---
ED General - General Chief Complaint: Flank Pain Stated Complaint: ABDOMINAL/BACK PAIN Time Seen by Provider: 12/08/17 17:30 TRAVEL OUTSIDE OF THE [place] IN LAST 30 DAYS: No - HPI Patient complains to provider of: Left adnexal pain Notes: Patient coming in for evaluation of left adnexal pain. 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 Patient states pain in that area have been ongoing for months patient states she was also diagnosed with yeast infection due to recent antibiotics 3 weeks ago from pyelonephritis. Patient upon my evaluation resting clinically no signs of any obvious distress. Denies any fevers chills nausea vomiting diarrhea. Patient denies any recent sexual intercourse at this time. - Related Data Allergies/Adverse Reactions: No Known Allergies Allergy (Verified 04/19/16 14:14) Past Medical History - Social History Smoking Status: Current Every Day Smoker Chew tobacco use (# tins/day): No Frequency of alcohol use: None Drug Abuse: None Family History: Reviewed & Not Pertinent Patient has suicidal ideation: No Patient has homicidal ideation: No Renal/ Medical History: Reports: Hx Kidney Stones. Denies: Hx Peritoneal Dialysis Musculoskeletal Medical History: Reports Hx Arthritis, Reports Hx Musculoskeletal Deformity, Reports Hx Musculoskeletal Trauma Psychiatric Medical History: Reports: Hx Anxiety, Hx Bipolar Disorder, Hx Depression - ANxiety Past Surgical History: Reports: Hx Breast Surgery - augmentation, Hx Hysterectomy, Hx Orthopedic Surgery - L5S1 fusion - Immunizations Immunizations up to date: Yes Hx Diphtheria, Pertussis, Tetanus Vaccination: Yes Review of Systems - Review of Systems Constitutional: No symptoms reported EENT: No symptoms reported Cardiovascular: No symptoms reported Respiratory: No symptoms reported Gastrointestinal: Abdominal pain Genitourinary: No symptoms reported Female Genitourinary: No symptoms reported Musculoskeletal: No symptoms reported Skin: No symptoms reported Hematologic/Lymphatic: No symptoms reported Neurological/Psychological: No symptoms reported Physical Exam - Vital signs Vitals: Temp Pulse Resp BP Pulse Ox 98.9 F 100 18 133/77 H 100 12/08/17 17:01 12/08/17 17:01 12/08/17 17:01 12/08/17 17:01 12/08/17 17:01 Interpretation: Normal - General General appearance: Appears well, Alert - HEENT Head: Normocephalic, Atraumatic Eyes: Normal Pupils: PERRL - Respiratory Respiratory status: No respiratory distress Chest status: Nontender Breath sounds: Normal Chest palpation: Normal - Cardiovascular Rhythm: Regular Heart sounds: Normal auscultation Murmur: No - Abdominal Inspection: Normal Distension: No distension Bowel sounds: Normal Tenderness: Nontender Organomegaly: No organomegaly - Genitourinary External exam: Normal Speculum exam: Other - Mild white discharge Bimanuel exam: Normal, Other - No adnexal masses were palpated in the left on the right there is no tenderness expressed either there were 2 small lymph nodes found in the inguinal region on the exam freely mobile nontender - Back Back: Normal, Nontender - Extremities General upper extremity: Normal inspection, Nontender, Normal color, Normal ROM , Normal temperature General lower extremity: Normal inspection, Nontender, Normal color, Normal ROM , Normal temperature, Normal weight bearing. No: Mini's sign - Neurological Neuro grossly intact: Yes Cognition: Normal Orientation: AAOx4 Vincent Coma Scale Eye Opening: Spontaneous Adrian Coma Scale Verbal: Oriented Adrian Coma Scale Motor: Obeys Commands Adrian Coma Scale Total: 15 Speech: Normal Motor strength normal: LUE, RUE, LLE, RLE Sensory: Normal - Psychological Associated symptoms: Normal affect, Normal mood - Skin Skin Temperature: Warm Skin Moisture: Dry Skin Color: Normal Course - Re-evaluation Re-evalutation: 12/09/17 00:19 Examination shows 2 small lymph nodes in the left adnexal region. Ultrasound showed any significant pathology. No masses seen. Patient was encouraged follow-up with [facility]. Patient requested not to wait around for wet mount or gonorrhea or chlamydia results. I have just reviewed those and they were all negative facet possible underlying bacterial vaginosis. - Vital Signs Vital signs: Temp Pulse Resp BP Pulse Ox 97.6 F 78 20 142/84 H 100 12/08/17 21:37 12/08/17 21:37 12/08/17 21:37 12/08/17 21:37 12/08/17 21:37 - Laboratory Result Diagrams: 12/08/17 17:43 12/08/17 17:43 Laboratory results interpreted by me: 12/08/17 12/08/17 12/08/17 17:43 17:43 17:43 WBC 10.8 H MCV 99 H MCH 34.0 H Glucose 72 L Urine Protein 30 H Discharge - Discharge Clinical Impression: Abdominal pain Qualifiers: Abdominal location: unspecified location Qualified Code(s): R10.9 - Unspecified abdominal pain Condition: Good Disposition: HOME, SELF-CARE Instructions: Abdominal Pain ([facility]) Additional Instructions: At this time your physical examination and laboratory studies and ultrasound did not show any critical pathology for your abdominal pain. I recommended she follow back up with the [facility] in 1-2 weeks. Return to the ER if symptoms worsen. Please take medication as prescribed for pain. Prescriptions: Ketorolac Tromethamine 10 mg PO TID #15 tablet Referrals: LOCALMD,NO [NO LOCAL MD] - Follow up as needed
[2017-12-08 21:16] LABS: BACTERIA (WET MOUNT) 3+ BACTERIA SEEN; EPITHELIALS (WET MOUNT) 3+ EPITHELIALS SEEN; T.VAGINALIS (WET MOUNT) NO TRICHOMONAS SEEN; WBCS (WET MOUNT) RARE WBCS SEEN; YEAST (WET MOUNT) NO YEAST SEEN
[2017-12-08 21:40] VITALS: BP 142/84
[2017-12-08 22:44] LABS: CHLAM PCR NOT DETECTED (NOT DETECT); GON PCR NOT DETECTED (NOT DETECT)
== END 2017-12-08 21:30 | disposition home or self-care (01) ==
LOC: ER 16:52
DX: R10.2 Pelvic and perineal pain (principal); N89.8 Other specified noninflammatory disorders of vagina; F17.200 Nicotine dependence, unspecified, uncomplicated; Z87.440 Personal history of urinary (tract) infections; Z87.442 Personal history of urinary calculi; Z90.710 Acquired absence of both cervix and uterus
CPT/HCPCS: 99284; 96372; 87210; 83690; 85025; 81025; 80053; 81001; 80307; 87491; 87591; 76830; J1885

== ENCOUNTER 2018-09-29 10:41 | Emergency (ER) | payer OTHER ==
[2018-09-29 11:10] VITALS: BP 126/65
--- NOTE | 2018-09-29 11:31 | ER Document Report ---
HPI - HPI Time Seen by Provider: 09/29/18 11:08 Pain Level: 5 Context: Patient is a 38-year-old female who presents to the emergency department with a chief complaint of a toothache to tooth #3. She states that she had a crown on that tooth and it came off about a week ago. She has not been able to see the dentist, as she does not have dental insurance at this time. She denies any past medical history and does not take any medications. She is a current everyday smoker. Denies any fever, but has some swelling to her right upper cheek. States she has not been to a dentist in a long time. - CONSTITUTIONAL Constitutional: DENIES: Fever, Chills - EENT EENT: DENIES: Sore Throat, Ear Pain, Nasal Drainage-Clear, Nasal Drainage- Purulent, Congestion, Eye problems Notes: Tooth pain to tooth #3. Swelling to right side of upper mouth - NEURO Neurology: DENIES: Headache, Weakness - CARDIOVASCULAR Cardiovascular: DENIES: Chest pain - RESPIRATORY Respiratory: DENIES: Trouble Breathing, Coughing - GASTROINTESTINAL Gastrointestinal: DENIES: Abdominal Pain - REPRODUCTIVE Reproductive: DENIES: : - MUSCULOSKELETAL Musculoskeletal: DENIES: Extremity pain - DERM Skin Color: Normal Skin Problems: None Past Medical History - Social History Smoking Status: Current Every Day Smoker Family History: Reviewed & Not Pertinent Renal/ Medical History: Reports: Hx Kidney Stones. Denies: Hx Peritoneal Dialysis Musculoskeletal Medical History: Reports Hx Arthritis, Reports Hx Musculoskeletal Deformity, Reports Hx Musculoskeletal Trauma Psychiatric Medical History: Reports: Hx Anxiety, Hx Bipolar Disorder, Hx Depression - ANxiety Past Surgical History: Reports: Hx Breast Surgery - augmentation, Hx Hysterectomy, Hx Orthopedic Surgery - L5S1 fusion - Immunizations Immunizations up to date: Yes Hx Diphtheria, Pertussis, Tetanus Vaccination: Yes Vertical Provider Document - CONSTITUTIONAL Agree With Documented VS: Yes Exam Limitations: No Limitations General Appearance: No Apparent Distress - INFECTION CONTROL TRAVEL OUTSIDE OF THE [place] IN LAST 30 DAYS: No - HEENT HEENT: Atraumatic, Normocephalic Mouth Diagram: 1 - Dental carry noted. Multiple teeth missing in the mouth. Notes: Swelling noted to right side of mouth. - NECK Neck: Normal Inspection - RESPIRATORY Respiratory: Breath Sounds Normal, No Respiratory Distress - CARDIOVASCULAR Cardiovascular: Regular Rate, Regular Rhythm, No Murmur Pulses: Normal: Radial - MUSCULOSKELETAL/EXTREMETIES Musculoskeletal/Extremeties: FROM - NEURO Level of Consciousness: Awake, Alert, Appropriate Motor/Sensory: No Motor Deficit, No Sensory Deficit - DERM Integumentary: Warm, Dry, No Rash Course - Re-evaluation Re-evalutation: 09/29/18 11:31 Patient's physical exam and history is most consistent with a infected tooth. Patient is able to swallow, airway is patent, vital signs are normal. I do not suspect Huseyin's angina, peritonsilar abscess, or airway obstruction. The patient will be started on oral antibiotics. I have given the patient education on their antibiotics. Patient was given instructions to follow-up with a dentist this week. Return precautions were given. Verbal discharge instructions were given. Patient verbalized understanding. Patient is stable for discharge. - Vital Signs Vital signs: Temp Pulse Resp BP Pulse Ox 97.9 F 16 L 16 126/65 H 98 09/29/18 11:09 09/29/18 11:09 09/29/18 11:09 09/29/18 11:09 09/29/18 11:09 Discharge - Discharge Clinical Impression: Toothache Condition: Stable Disposition: HOME, SELF-CARE Instructions: Clindamycin ([facility]), Toothache ([facility]) Additional Instructions: You have been seen in the emergency department for a toothache. You may take ibuprofen 600 mg and Tylenol 1000 mg every 6 hours as needed for the pain. You have also been given topical lidocaine. Placed that to the affected tooth as needed to help with pain. You have also been prescribed antibiotics. Please take the antibiotics as prescribed, even if you start to feel better. If you develop a fever greater than 100.4 F, or have any symptoms that are worrisome to you, please return to the emergency department. Please follow-up with a dentist this week in regards to your visit. [facility]: [phone]. Prescriptions: Acetaminophen [Acetaminophen Extra Strength] 1,000 mg PO Q6HP PRN #90 tablet PRN Reason: Pain Scale Of 1 Ibuprofen [Motrin 600 Mg Tablet] 600 mg PO Q6HP PRN #30 tablet PRN Reason: Pain Scale Of 1 Clindamycin HCl [Cleocin 150 mg Capsule] 300 mg PO Q6 7 Days #56 capsule
[2018-09-29] MEDS ORDERED: ACETAMINOPHEN 325 MG TABLET PO ONE (11:34)
[2018-09-29] MEDS ORDERED: LIDOCAINE 2% VISCOUS SOLN 20 ML UDCUP PO ONE (11:34)
[2018-09-29] MEDS ORDERED: IBUPROFEN 600 MG TABLET PO ONE (11:35)
== END 2018-09-29 11:49 | disposition home or self-care (01) ==
LOC: ER 10:41
DX: K08.9 Disorder of teeth and supporting structures, unspecified (principal); F17.200 Nicotine dependence, unspecified, uncomplicated; Z87.442 Personal history of urinary calculi; Z90.710 Acquired absence of both cervix and uterus
CPT/HCPCS: 99282; J3490

== ENCOUNTER 2018-12-08 12:15 | Emergency (ER) | payer OTHER ==
--- NOTE | 2018-12-08 12:18 | ER Document Report ---
ED General <JONNY CHAVIS - Last Filed: 12/09/18 12:50> <TARAS AGUILAR - Last Filed: 12/09/18 13:39> - General TRAVEL OUTSIDE OF THE [place] IN LAST 30 DAYS: No <PAWAN AGUIRRE - Last Filed: 12/09/18 20:15> - General Stated Complaint: SUICIDAL IDEATION Time Seen by Provider: 12/08/18 12:18 Primary Care Provider: [facility] [Outside] - Follow up as needed Notes: Patient is a 38-year-old female, with bipolar disorder, anxiety, depression, PTSD that presents to the emergency department for chief complaint of suicidal ideation, and left wrist laceration. Patient states that she got into an argument with her , who she states apparently would not fill her psychiatric medication prescriptions and attempt to make her relapse and start using heroin again, so that he could get custody of their children, she is been off them for 2 days, she is on Latuda, Celexa, gabapentin and Klonopin, she states that she is feeling suicidal, and states it is not worth it at this point, and she cut her left wrist with a piece of glass from a broken candle. She reports being up-to-date with tetanus, she states she has self cut in the past, and was a frequent heroin user, but she states she is currently not using. She is upset, was combative and argumentative with EMS, but is now more calm. She denies having any hallucinations, auditory or visual. Past Medical History: Depression, anxiety, bipolar disorder, PTSD Past Surgical History: Denies recent or pertinent surgical history Social History: Admits to smoking cigarettes, and former heroin use, and she does admit to drinking alcohol occasionally Family History: Reviewed and noncontributory for presenting illness Allergies: Reviewed, see documented allergy list. REVIEW OF SYSTEMS: Other than noted above, the 12 point review of systems was reviewed with the patient and were negative, all pertinent findings are included in the HPI. PHYSICAL EXAMINATION: Vital signs reviewed, nursing noted reviewed. GENERAL: Patient is tearful, mildly agitated HEAD: Atraumatic, normocephalic. EYES: Eyes appear normal, extraocular movements intact, sclera anicteric, conjunctiva are normal. ENT: nares patent, oropharynx clear without exudates. Moist mucous membranes. NECK: Normal range of motion, supple without lymphadenopathy LUNGS: Breath sounds clear to auscultation bilaterally and equal. No wheezes rales or rhonchi. HEART: Regular rate and rhythm without murmurs ABDOMEN: Soft, nontender, normoactive bowel sounds. No rebound, guarding, or rigidity. No masses appreciated. EXTREMITIES: good range of motion, no pitting or edema. The left wrist, has a 3 cm linear laceration, on the volar surface, that is due to some cutaneous tissues, no tendons are exposed, and exploration, patient's tendon function is intact with flexion of all digits, and of the wrist, without any impairment, or decreased strength, with resistance, cap refills less than 3 seconds in all digits, radial and ulnar pulses are palpable. The rest the patient's extremity exam is grossly unremarkable, good strength otherwise, she does have healed scars, and track moise, from prior use, and self cutting. NEUROLOGICAL: No focal neurological deficits. Moves all extremities spontaneously Motor and sensory grossly intact on exam. PSYCH: Tearful, agitated, does appear anxious SKIN: Warm, Dry, normal turgor, patient has several areas, on both upper and lower extremities, that are consistent with excoriations and skin picking, no signs of acute infection on any of these lesions. (PAWAN AGUIRRE) - Related Data Allergies/Adverse Reactions: No Known Allergies Allergy (Verified 04/19/16 14:14) Past Medical History - Social History Smoking Status: Current Every Day Smoker Family History: Reviewed & Not Pertinent Renal/ Medical History: Reports: Hx Kidney Stones. Denies: Hx Peritoneal Dialysis Musculoskeletal Medical History: Reports Hx Arthritis, Reports Hx Musculoskeletal Deformity, Reports Hx Musculoskeletal Trauma Psychiatric Medical History: Reports: Hx Anxiety, Hx Bipolar Disorder, Hx Depression - ANxiety Past Surgical History: Reports: Hx Breast Surgery - augmentation, Hx Hysterectomy, Hx Orthopedic Surgery - L5S1 fusion - Immunizations Immunizations up to date: Yes Hx Diphtheria, Pertussis, Tetanus Vaccination: Yes <PAWAN AGUIRRE - Last Filed: 12/09/18 20:15> - Vital signs Vitals: Temp Pulse Resp BP Pulse Ox 98.3 F 78 20 132/73 H 100 12/09/18 06:53 12/09/18 06:53 12/09/18 06:53 12/09/18 06:53 12/09/18 06:53 Course - Laboratory Result Diagrams: 12/08/18 12:45 12/09/18 11:17 <JONNY CHAVIS - Last Filed: 12/09/18 12:50> - Laboratory Result Diagrams: 12/08/18 12:45 12/09/18 11:17 <TARAS AGUILAR - Last Filed: 12/09/18 13:39> - Laboratory Result Diagrams: 12/08/18 12:45 12/09/18 11:17 <AGUIRREPAWAN - Last Filed: 12/09/18 20:15> - Re-evaluation Re-evalutation: Patient seen and examined, vital signs reviewed. Medical screening testing was ordered including bloodwork, EKG, and toxicology. Results of testing were reviewed. Testing demonstrated mild hyperbilirubinemia, and elevated alk phos, and elevated AST, and hypokalemia, which the patient was given p.o. replacement, she was resumed on her home medications, confirmed from recent refills, and pharmacy records. Patient has been stable from a hemodynamic standpoint. I will send off hepatitis panel, suspect hepatitis C in this patient, most recent blood work to compare with was from over a year ago, but to not feel any further work-up is needed at this time, patient's not having abdominal pain, right upper quadrant pain, nausea or vomiting. Patient's laceration was repaired as described in procedure section, tolerated well without complication. Wound was dressed with bacitracin and nonadhesive dressing. At this point I feel that the patient is medically cleared and can be further evaluated from a psychiatric standpoint for final disposition from the emergency department. Patient updated on plan of care. Due to the patient's actions, and suicidal ideations will plan for petition, and IVC paperwork has been completed for this patient and she is understanding of plan at this time. Laboratory 12/08/18 12/08/18 12/08/18 12:45 12:45 12:45 WBC 10.1 RBC 4.55 Hgb 13.9 Hct 41.0 MCV 90 MCH 30.6 MCHC 33.9 RDW 19.5 H Plt Count 426 Seg Neutrophils % 60.4 Lymphocytes % 32.4 Monocytes % 5.8 Eosinophils % 0.5 Basophils % 0.9 Absolute Neutrophils 6.1 Absolute Lymphocytes 3.3 Absolute Monocytes 0.6 Absolute Eosinophils 0.1 Absolute Basophils 0.1 Sodium 137.7 Potassium 3.2 L Chloride 100 Carbon Dioxide 20 L Anion Gap 18 BUN 10 Creatinine 0.66 Est GFR ( Amer) > 60 Est GFR (Non-Af Amer) > 60 Glucose 58 L Calcium 9.9 Total Bilirubin 1.9 H Direct Bilirubin 1.2 H Neonat Total Bilirubin Not Reportable Neonat Direct Bilirubin Not Reportable Neonat Indirect Bili Not Reportable AST 183 H ALT 206 Alkaline Phosphatase 561 H Total Protein 7.8 Albumin 4.2 Serum HCG, Qual NEGATIVE Salicylates < 1.0 L Acetaminophen < 10 L Serum Alcohol 102 (PAWAN AGUIRRE) - Vital Signs Vital signs: Temp Pulse Resp BP Pulse Ox 97.5 F 75 16 129/83 H 97 12/09/18 13:47 12/09/18 13:47 12/09/18 13:47 12/09/18 13:47 12/09/18 13:47 - Laboratory Laboratory results interpreted by me: 12/08/18 12/08/18 12/09/18 12:45 12:45 08:00 RDW 19.5 H Sodium Potassium 3.2 L Carbon Dioxide 20 L Glucose 58 L Total Bilirubin 1.9 H Direct Bilirubin 1.2 H AST 183 H Alkaline Phosphatase 561 H Urine Blood SMALL H Urine Urobilinogen 4.0 H Salicylates < 1.0 L Acetaminophen < 10 L 12/09/18 11:17 RDW Sodium 136.5 L Potassium Carbon Dioxide Glucose 114 H Total Bilirubin 1.5 H Direct Bilirubin 0.9 H AST 92 H Alkaline Phosphatase 426 H Urine Blood Urine Urobilinogen Salicylates Acetaminophen - EKG Interpretation by Me Additional EKG results interpreted by me: EKG demonstrates sinus rhythm with a ventricular rate of 69 bpm, normal axis, normal intervals, no evidence of acute ischemia in this EKG, no prior for comparison. (PAWAN AGUIRRE) Procedures - Laceration/Wound Repair Left Wrist Wound length (cm): 3 Wound's Depth, Shape: Linear - into subcutenous tissues, Other Anesthetic type: 1% Lidocaine w/epi Volume Anesthetic (mLs): 2 Wound explored: Clean Wound Repaired With: Sutures Suture Size/Type: 4:0, Nylon Number of Sutures: 6 Layer Closure?: No Post-procedure wound care: Sterile dressing applied Post-procedure NV exam normal: Yes Complications: No <PAWAN AGUIRRE - Last Filed: 12/09/18 20:15> - Laceration/Wound Repair Left Wrist Notes: Patient tolerated well. (PAWAN AGUIRRE) Discharge <JONNY CHAVIS - Last Filed: 12/09/18 12:50> <TARAS AGUILAR - Last Filed: 12/09/18 13:39> <PAWAN AGUIRRE - Last Filed: 12/09/18 20:15> - Discharge Clinical Impression: Suicidal ideation, Hypokalemia, Transaminitis Laceration of left wrist Qualifiers: Encounter type: initial encounter Qualified Code(s): S61.512A - Laceration without foreign body of left wrist, initial encounter Condition: Stable Disposition: HOME, SELF-CARE Additional Instructions: You have been evaluated by both medical and behavioral health teams and have been deemed appropriate for discharge. Please continue working with outpatient services for both medication management and therapeutic services. You are recommended to engage with your provider to build your positive coping skills. ACUTE ALCOHOL INTOXICATION and ALCOHOL ABUSE: Your evaluation revealed very high levels of alcohol. You can from drinking a large amount of alcohol rapidly! Further, there's the risk of falls, traffic accidents, and fights. A high portion (about 50 percent) of the serious injuries seen in hospital emergency rooms are caused by alcohol. Alcohol overdosage is usually due to an underlying emotional or psychiatric problem. You may benefit from counselling. If "binge" drinking is an ongoing problem for you, or if you drink ANY AMOUNT of alcohol EVERY day, you most likely have a tendency to alcoholism. You should avoid alcohol totally. We can refer you for treatment. Persons with alcohol problems are often also prone to other addictions -- you should discuss any use of medications or drugs with the doctor. You should be watched at home for the next several hours by someone who has not been drinking. Get extra fluids for the next 24 hours. Call the doctor if there is repeated vomiting, increasing headache, decreasing level of alertness, or any other worsening. DEPRESSION: Your evaluation reveals that you have mental depression. While symptoms may be vague, they often include disturbance of sleep, fatigue, loss of appetite, and general loss of interest in life. While depression may be a side effect of drugs, or a reaction to a major change in your life, many cases have no known cause. If depression is acute, and related to a major loss in your life, you can expect it to clear completely with time. If you have been depressed a long time, are prone to repeated bouts of depression or low mood, or have been thinking of suicide, get help. Depression can be treated with anti-depressant medication and counselling. Long-term depression will often take a few weeks to clear, even with appropriate medication. Follow-up care is important. SUICIDAL IDEATION: Suicidal ideation is a common medical term for thoughts about suicide, which may be as detailed as a formulated plan, without the suicidal act itself. Although most people who undergo suicidal ideation do not commit suicide, some go on to make suicide attempts. The range of suicidal ideation varies greatly from fleeting to detailed planning, role playing, and unsuccessful attempts. While thoughts about suicide are common, most people do not carry out serious actions to commit suicide. Based upon your evaluation and discussion with you, we do not believe you are currently at risk to act upon your thoughts of suicide. You have agreed to return to the Emergency Department, at any time, if you feel inclined to act upon your suicidal thoughts. FOLLOW-UP CARE: If you have been referred to a physician for follow-up care, call the physicians office for an appointment as you were instructed or within the next two days. If you experience worsening or a significant change in your symptoms, notify the physician immediately or return to the Emergency Department at any time for re-evaluation. Referrals: [facility] [Outside] - Follow up as needed
[2018-12-08] MEDS ORDERED: LIDOCAINE 1%/EPINEPHRINE INJ 20 ML VIAL INJ ONE (12:33)
[2018-12-08] MEDS ORDERED: LURASIDONE HCL 40 MG TABLET PO ONE (12:35)
[2018-12-08] MEDS ORDERED: GABAPENTIN 400 MG CAPSULE PO ONE ×2 (12:36→18:19)
[2018-12-08] MEDS ORDERED: CLONAZEPAM 1 MG TABLET PO ONE ×2 (12:36→18:01)
[2018-12-08] MEDS ORDERED: CITALOPRAM HYDROBROMIDE 20 MG TABLET PO ONE (12:36)
[2018-12-08 13:05] LABS: ABSOLUTE BASOPHILS # (AUTO) 0.1 10^3/uL (0.0-0.2); ABSOLUTE EOSINOPHILS # (AUTO) 0.1 10^3/uL (0.0-0.6); ABSOLUTE LYMPHOCYTES (AUTO) 3.3 10^3/uL (0.5-4.7); ABSOLUTE MONOCYTES (AUTO) 0.6 10^3/uL (0.1-1.4); ABSOLUTE NEUT (AUTO) 6.1 10^3/uL (1.7-8.2); BASOPHILS % (AUTO) 0.9 % (0-2); EOSINOPHILS % (AUTO) 0.5 % (0-6); HEMOGLOBIN 13.9 g/dL (12.0-15.5); LYMPHOCYTES % (AUTO) 32.4 % (13-45); MEAN CORPUSCULAR HEMOGLOBIN 30.6 pg (27.0-33.4); MEAN CORPUSCULAR HGB CONC 33.9 g/dL (32.0-36.0); MEAN CORPUSCULAR VOLUME 90 fl (80-97); MONOCYTES % (AUTO) 5.8 % (3-13); PLATELET COUNT 426 10^3/uL (150-450); RED BLOOD COUNT 4.55 10^6/uL (3.72-5.28); RED CELL DISTRIBUTION WIDTH 19.5 % (11.5-14.0); SEGMENTED NEUTROPHILS % (AUTO) 60.4 % (42-78); TOTAL CELLS COUNTED % (AUTO) 100 %; WHITE BLOOD COUNT 10.1 10^3/uL (4.0-10.5)
[2018-12-08 13:25] LABS: ALBUMIN 4.2 g/dL (3.5-5.0); ALCOHOL 102 mg/dL (NONE DETECTED); ALKALINE PHOSPHATASE 561 U/L (38-126); ANION GAP 18 (5-19); ASPARTATE AMINO TRANSFERASE 183 U/L (14-36); BILIRUBIN,DIRECT 1.2 mg/dL (0.0-0.4); BILIRUBIN,TOTAL 1.9 mg/dL (0.2-1.3); BLOOD UREA NITROGEN 10 mg/dL (7-20); CALCIUM 9.9 mg/dL (8.4-10.2); CARBON DIOXIDE 20 mmol/L (22-30); CHLORIDE 100 mmol/L (98-107); POTASSIUM 3.2 mmol/L (3.6-5.0); TOTAL PROTEIN 7.8 g/dL (6.3-8.2)
[2018-12-08 13:29] LABS: ACETAMINOPHEN < 10 ug/mL (10-30); GLUCOSE 58 mg/dL (75-110); SALICYLATE < 1.0 mg/dL (2.0-20.0)
[2018-12-08] MEDS ORDERED: POTASSIUM CHLORIDE 10 MEQ CAPSULE.ER PO ONE (13:38)
--- NOTE | 2018-12-08 17:20 | PSYCHOLOGICAL NOTE ---
Psych Note - Psych Note Date seen by psych provider: 12/09/15 Time seen by psych provider: 14:00 - 1420 Psych Note: Reason for Consult: Suicidal ideation mood disorder probable due to substance abuse substance abuse no medication recommendations at this time Impression/Plan: Patient is recommended for IVC petition for overnight mental health observation. Patient is currently under the influence of alcohol and presented after "slashing my wrist." Patient reports being afraid of relapsing on hereon (she states sober about one month), being tired of the constant struggle of panic attacks, and worrying about being on medication for her mental health for the rest of her life. Patient will be reevaluated. Dr. Cyr is consulted to care management of this patient; attending physicians in agreement with recommendations and disposition.
--- NOTE | 2018-12-08 17:56 | EKG REPORT ---
SEVERITY:- NORMAL ECG - SINUS RHYTHM : Confirmed by: Ramirez Ibrahim MD 08-Dec-2018 17:55:43
[2018-12-08] MEDS ORDERED: NICOTINE 21 MG/24 HR PATCH.TD24 TD ONE (18:00)
[2018-12-09] MEDS ORDERED: GABAPENTIN 400 MG CAPSULE PO ONE ×2 (03:00→09:19)
[2018-12-09] MEDS ORDERED: IBUPROFEN 800 MG TABLET PO ONE ×2 (03:33→09:56)
--- NOTE | 2018-12-09 03:34 | ER Document Report ---
Doctor's Note Notes: 12/09/18 03:34 Patient complaining of wrist pain where she sustained a laceration. Will order ibuprofen.
[2018-12-09 08:46] LABS: APPEARANCE,URINE CLOUDY; BILIRUBIN,URINE NEGATIVE (NEGATIVE); GLUCOSE, URINE NEGATIVE (NEGATIVE); KETONES,URINE NEGATIVE (NEGATIVE); LEUKOCYTE ESTERASE,URINE NEGATIVE (NEGATIVE); NITRITE,URINE NEGATIVE (NEGATIVE); PROTEIN,URINE NEGATIVE (NEGATIVE); URINE SPECIFIC GRAVITY 1.016
[2018-12-09 09:00] LABS: ADD MANUAL MICROSCOPIC YES; COLOR,URINE YELLOW
[2018-12-09 09:03] LABS: BACTERIA,URINE 4+ /HPF
[2018-12-09 09:17] LABS: URINE AMPHETAMINES SCREEN NEGATIVE; URINE BARBITURATES SCREEN NEGATIVE; URINE BENZODIAZEPINES SCREEN NEGATIVE; URINE COCAINE SCREEN NEGATIVE; URINE MARIJUANA (THC) SCREEN NEGATIVE; URINE METHADONE SCREEN NEGATIVE; URINE PHENCYCLIDINE SCREEN NEGATIVE
[2018-12-09] MEDS ORDERED: CLONAZEPAM 1 MG TABLET PO ONE (09:19)
[2018-12-09] MEDS ORDERED: NICOTINE 21 MG/24 HR PATCH.TD24 TD ONE (09:57)
[2018-12-09] MEDS ORDERED: LURASIDONE HCL 40 MG TABLET PO SCH (10:00)
[2018-12-09] MEDS ORDERED: CITALOPRAM HYDROBROMIDE 20 MG TABLET PO ONE (11:00)
--- NOTE | 2018-12-09 11:19 | ER Document Report ---
Doctor's Note Notes: 12/09/18 11:19 Patient seen and examined, slept overnight, no acute issues, is wanted to be discharged, and denies suicidal or homicidal ideations at this time. Is wanted to continue to stay sober and off of illegal drugs. Plan at this point will be to discharge to home with follow-up with outpatient resources. Patient a greeable, she will need to follow-up in 1 week to have her stitches removed as well. Her repeat bloodwork was reviewed and improved from yesterday.
[2018-12-09 11:56] LABS: ALBUMIN 3.8 g/dL (3.5-5.0); ALKALINE PHOSPHATASE 426 U/L (38-126); ANION GAP 11 (5-19); ASPARTATE AMINO TRANSFERASE 92 U/L (14-36); BILIRUBIN,DIRECT 0.9 mg/dL (0.0-0.4); BILIRUBIN,TOTAL 1.5 mg/dL (0.2-1.3); BLOOD UREA NITROGEN 13 mg/dL (7-20); CALCIUM 9.5 mg/dL (8.4-10.2); CARBON DIOXIDE 23 mmol/L (22-30); CHLORIDE 103 mmol/L (98-107); GLUCOSE 114 mg/dL (75-110); TOTAL PROTEIN 6.8 g/dL (6.3-8.2)
[2018-12-09 12:14] LABS: POTASSIUM 4.3 mmol/L (3.6-5.0)
--- NOTE | 2018-12-09 12:50 | PSYCHOLOGICAL NOTE ---
Psych Note - Psych Note Date seen by psych provider: 12/09/18 Time seen by psych provider: 11:45 Psych Note: Reason for Consult: Suicidal ideation mood disorder probable due to substance abuse substance abuse no medication recommendations at this time Impression/Plan: Patient is recommended for rescind of IVC and is cleared from acute psychiatric services. Patient was self medicating with alcohol because she ran out of her mental health medications. She reports that she has cut herself in the past "in the same wrist even" 20 years ago when she was off her medication and under the influence of alcohol. She denies thoughts of wanting to harm herself stating "when I woke up I thought ' oh man, what did i do?'" She states she has a provider online and has just asked to add one on one therapy. Patient's confirms he has picked up her medications and has no concerns with the patient returning home. Patient is recommended to continue with her outpatient provider and engage in therapy to build positive coping skills. Dr. Cyr is consulted to care management of this patient; attending physicians in agreement with recommendations and disposition.
[2018-12-09 13:50] VITALS: BP 129/83
[2018-12-10 08:37] LABS: HEPATITS B SURFACE ANTIGEN Negative (Negative)
[2018-12-11 10:41] LABS: HEPATITIS C VIRUS ANTIBODY >11.0 s/co ratio (0.0-0.9)
== END 2018-12-09 13:50 | disposition home or self-care (01) ==
LOC: ER 12:15
PROC: 0HQEXZZ Repair Left Lower Arm Skin, External Approach (ICD-10-PCS; principal; 2018-12-08)
DX: S61.512A Laceration without foreign body of left wrist, initial encounter (principal); E87.6 Hypokalemia; R74.0 Nonspecific elevation of levels of transaminase and lactic acid dehydrogenase [LDH]; X78.0XXA Intentional self-harm by sharp glass, initial encounter; Z79.899 Other long term (current) drug therapy; F31.9 Bipolar disorder, unspecified; F41.9 Anxiety disorder, unspecified; F17.210 Nicotine dependence, cigarettes, uncomplicated
CPT/HCPCS: 93005; 99285; 36415; 80307 ×4; 84703; 85025; 80053; 81001; 80074; 93010; 12001; J3490 ×3

== ENCOUNTER 2019-04-28 13:15 | Emergency (ER) | payer OTHER | END 2019-04-28 15:04 | disposition left against medical advice (07) | LOC: ER 13:15 | DX: Z53.21 Procedure and treatment not carried out due to patient leaving prior to being seen by health care provider (principal) ==

== ENCOUNTER 2019-09-26 07:51 | Emergency (ER) | payer OTHER ==
[2019-09-26] MEDS ORDERED: NORMAL SALINE 1000 ML 1,000 ML IV ONE (09:09)
[2019-09-26] MEDS ORDERED: ONDANSETRON HCL INJ/PF 4 MG/2 ML SDV IV ONE (09:09)
--- NOTE | 2019-09-26 09:13 | ER Document Report ---
ED Medical Screen (RME) - General Chief Complaint: Flank Pain Stated Complaint: LEFT FLANK PAIN Time Seen by Provider: 09/26/19 09:11 Mode of Arrival: Ambulatory Information source: Patient Notes: 39-year-old female presented to ED for complaint of left flank pain since yesterday. She has no hematuria. No nausea or vomiting. She states she took Tylenol at 6 this morning and took ibuprofen at 830. She is alert oriented respirations regular nonlabored speaking in full sentences states her pain is a 5 out of 5 sharp. She states she does smoke half pack a day drinks socially no drugs. Has a history of kidney stone partial hysterectomy bipolar anxiety depression and panic attacks. Patient is alert oriented respirations regular and unlabored speaking in full sentences. She does walk with a even steady gait. She was held department when I try to find her to get her assessed. I have greeted and performed a rapid initial assessment of this patient. A comprehensive ED assessment and evaluation of the patient, analysis of test results and completion of medical decision making process will be conducted by an additional ED providers. TRAVEL OUTSIDE OF THE [place] IN LAST 30 DAYS: No - Related Data Allergies/Adverse Reactions: No Known Allergies Allergy (Verified 09/26/19 09:09) Past Medical History - Past Medical History Cardiac Medical History: Reports: None Pulmonary Medical History: Reports: None EENT Medical History: Reports: None Endocrine Medical History: Reports: None Renal/ Medical History: Reports: Hx Kidney Stones Malignancy Medical History: Reports: None GI Medical History: Reports: None Musculoskeltal Medical History: Reports Hx Arthritis, Reports Hx Musculoskeletal Deformity, Reports Hx Musculoskeletal Trauma Psychiatric Medical History: Reports: Hx Anxiety, Hx Bipolar Disorder, Hx Depression - ANxiety Traumatic Medical History: Reports: None Infectious Medical History: Reports: None Past Surgical History: Reports: Hx Breast Surgery - augmentation, Hx Hysterectomy, Hx Orthopedic Surgery - L5S1 fusion - Immunizations Immunizations up to date: Yes Hx Diphtheria, Pertussis, Tetanus Vaccination: Yes Physical Exam - Vital signs Vitals: Temp Pulse Resp BP Pulse Ox 97.9 F 91 18 121/74 100 09/26/19 07:54 09/26/19 07:54 09/26/19 07:54 09/26/19 07:54 09/26/19 07:54 Course - Vital Signs Vital signs: Temp Pulse Resp BP Pulse Ox 97.9 F 91 18 121/74 100 09/26/19 07:54 09/26/19 07:54 09/26/19 07:54 09/26/19 07:54 09/26/19 07:54
[2019-09-26] MEDS ORDERED: MORPHINE SULFATE 10 MG/ML INJ IV ONE ×2 (09:45→12:29)
--- NOTE | 2019-09-26 09:56 | ER Document Report ---
ED GI/ - General Chief Complaint: Flank Pain Stated Complaint: LEFT FLANK PAIN Time Seen by Provider: 09/26/19 09:11 Mode of Arrival: Ambulatory Notes: 39-year-old female presenting today with left lower quadrant pain that radiates to her back. Symptoms started yesterday and has been progressively getting worse. Pain is constant, sharp. She has tried ibuprofen with no relief in symptoms. Denies any dysuria or gross hematuria. Patient is most comfortable leaning forward. Back is very tender to palpation along the left side. Has had 2 episodes of nonbloody emesis. Denies nausea. She has a history of kidney stones approximately 6 years ago. States the same is similar in intensity to the pain she had when she had kidney stones. Reports a history of a partial hysterectomy, L5-S1 fusion, and breast augmentation. Denies any additional medical history. Reports no allergies any medications. Denies any new sexual partners. Denies drug use/abuse. TRAVEL OUTSIDE OF THE [place] IN LAST 30 DAYS: No - HPI Quality of pain: Sharp Location: LLQ LMP: History of partial hysterectomy Associated symptoms: denies: Hematuria - Related Data Allergies/Adverse Reactions: No Known Allergies Allergy (Verified 09/26/19 09:09) Home Medications: ..... Past Medical History - General Information source: Patient - Social History Smoking Status: Current Every Day Smoker Chew tobacco use (# tins/day): No Frequency of alcohol use: Social Drug Abuse: None Family History: Reviewed & Not Pertinent Patient has homicidal ideation: No - Past Medical History Cardiac Medical History: Reports: None Pulmonary Medical History: Reports: None EENT Medical History: Reports: None Endocrine Medical History: Reports: None Renal/ Medical History: Reports: Hx Kidney Stones Malignancy Medical History: Reports: None GI Medical History: Reports: None Musculoskeletal Medical History: Reports Hx Arthritis, Reports Hx Musculoskeletal Deformity, Reports Hx Musculoskeletal Trauma Psychiatric Medical History: Reports: Hx Anxiety, Hx Bipolar Disorder, Hx D epression - ANxiety Traumatic Medical History: Reports: None Infectious Medical History: Reports: None Past Surgical History: Reports: Hx Breast Surgery - augmentation, Hx Hysterectomy, Hx Orthopedic Surgery - L5S1 fusion - Immunizations Immunizations up to date: Yes Hx Diphtheria, Pertussis, Tetanus Vaccination: Yes Review of Systems - Review of Systems Constitutional: No symptoms reported EENT: No symptoms reported Cardiovascular: No symptoms reported Respiratory: No symptoms reported Gastrointestinal: See HPI Genitourinary: See HPI Female Genitourinary: See HPI Musculoskeletal: Back pain Skin: No symptoms reported Physical Exam - Vital signs Vitals: Temp Pulse Resp BP Pulse Ox 97.9 F 91 18 121/74 100 09/26/19 07:54 09/26/19 07:54 09/26/19 07:54 09/26/19 07:54 09/26/19 07:54 - Notes Notes: Adult General: GENERAL: Alert, interacts well. In pain HEAD: Normocephalic, atraumatic EYES: Pupils equal, round and reactive to light. Extraocular movements intact. ENT: Oral mucosa moist, tongue midline. Oropharynx unremarkable. Airway patent. Nares patent. NECK: Full range of motion. Supple. Trachea midline. No lymphadenopathy. LUNGS: Clear to auscultation bilaterally, no wheezes, rales, or rhonchi. No respiratory distress. Nontender chest wall. HEART: Regular rate and rhythm. No murmurs, rubs or gallops. ABDOMEN: Soft, tender LLQ. Nondistended. Bowel sounds present in all 4 quadrants. GENITOURINARY: White vaginal discharge, cervical motion tenderness EXTREMITIES: Moves all 4 extremities spontaneously. No edema. No cyanosis. BACK: Left sided CVA tenderness. No cervical, thoracic, lumbar midline tenderness. No saddle anesthesia, normal distal neurovascular exam. Moves all extremities with full range of motion. NEUROLOGICAL: Alert and oriented x3. Normal speech. Strength 5/ 5 in all extremities. PSYCH: Normal affect, normal mood. SKIN: Warm, dry, normal turgor. No rashes or lesions noted. Course - Re-evaluation Re-evalutation: 09/26/19 11:[address] scan came back negative for any acute abdominal or pelvic findings. She continues to have severe left lower quadrant pain. States pain is similar to her giving and when she had kidney stones. Pelvic exam was performed. Chaperoned by Mrs. Choi PCT. Pelvic exam noted some white vaginal discharge and positive chandelier sign. No palpable masses on exam. Pending results of urinalysis, BV, and GC. Based on pelvic exam, suspect PID. Will start patient on 250 mg IM of ceftriaxone. 09/26/19 11:52 09/26/19 11:55 09/26/19 16:[address] scan showed no signs of nephrolithiasis, hydronephrosis or ovarian etiology of pain. Pelvic exam showed white vaginal discharge, and a positive chandelier sign. UA showed leukocyte esterase and cbc showed leukocytosis of 17,300. This is more consistent with a PID etiology of her pain. Patient also has positive epithelial cells and bacteria cells noted on wet mount, consistent with bacterial vaginosis, will treat with flagyl 500 mg bid x 7 days. Patient was given 250 mg IM of ceftriaxone to treat PID. Will be discharged with doxycycline 100 mg to take bid x 14 days. Discussed with patient that she will need to take her antibiotics to help treat her symptoms. She will also need to follow-up with [facility] in 3-5 days. To refrain from sexual activity until symptoms have resolved. Return to the ER if symptoms worsen or develop new symptoms. Pt acknowledges and verbalizes understanding of instructions. - Vital Signs Vital signs: Temp Pulse Resp BP Pulse Ox 98 F 66 18 149/86 H 100 09/26/19 13:51 09/26/19 13:51 09/26/19 13:51 09/26/19 13:51 09/26/19 13:51 - Laboratory Result Diagrams: 09/26/19 09:45 09/26/19 09:45 Laboratory results interpreted by me: 09/26/19 09/26/19 09/26/19 08:55 09:45 09:45 WBC 17.3 H Hgb 15.8 H MCH 34.3 H Plt Count 469 H Lymph % (Auto) 11.6 L [place] % (Auto) 2.8 L Absolute Neuts (auto) 14.7 H Seg Neutrophils % 84.9 H Sodium 136.1 L Carbon Dioxide 18 L Calcium 10.3 H Total Bilirubin 1.4 H Alkaline Phosphatase 144 H Total Protein 9.5 H Albumin 5.2 H Urine Ketones TRACE H Urine Blood LARGE H Ur Leukocyte Esterase LARGE H Discharge - Discharge Clinical Impression: Pelvic inflammatory disease (PID), Bacterial vaginosis Condition: Stable Disposition: HOME, SELF-CARE Instructions: Doxycycline ([facility]), Pelvic Inflammatory Disease ([facility]), Vaginosis, Bacterial ([facility]) Additional Instructions: You are being treated for pelvic inflammatory disease and bacterial vaginosis. This is the likely cause of your pain. Please take antibiotics as prescribed as this will help improve your pain levels. You can also use tylenol 325 q 4-6 hours and ibuprofen 400 mg tid for pain. You will need to schedule a [facility] days. Please return to the emergency department if symptoms worsen or do not improve. Prescriptions: Doxycycline Monohydrate 100 mg PO BID #28 capsule Metronidazole [Flagyl 500 mg Tablet] 500 mg PO Q12 #14 tablet Forms: Smoking Cessation Education
[2019-09-26 09:58] LABS: ABSOLUTE BASOPHILS # (AUTO) 0.1 10^3/uL (0.0-0.2); ABSOLUTE MONOCYTES (AUTO) 0.5 10^3/uL (0.1-1.4); ABSOLUTE NEUT (AUTO) 14.7 10^3/uL (1.7-8.2); BASOPHILS % (AUTO) 0.4 % (0-2); EOSINOPHILS % (AUTO) 0.3 % (0-6); HEMATOCRIT 44.1 % (36.0-47.0); HEMOGLOBIN 15.8 g/dL (12.0-15.5); LYMPHOCYTES % (AUTO) 11.6 % (13-45); MEAN CORPUSCULAR HEMOGLOBIN 34.3 pg (27.0-33.4); MEAN CORPUSCULAR HGB CONC 35.8 g/dL (32.0-36.0); MEAN CORPUSCULAR VOLUME 96 fl (80-97); MONOCYTES % (AUTO) 2.8 % (3-13); PLATELET COUNT 469 10^3/uL (150-450); RED CELL DISTRIBUTION WIDTH 12.9 % (11.5-14.0); SEGMENTED NEUTROPHILS % (AUTO) 84.9 % (42-78); TOTAL CELLS COUNTED % (AUTO) 100 %; WHITE BLOOD COUNT 17.3 10^3/uL (4.0-10.5)
[2019-09-26 10:12] LABS: ALBUMIN 5.2 g/dL (3.5-5.0); ALKALINE PHOSPHATASE 144 U/L (38-126); ANION GAP 13 (5-19); ASPARTATE AMINO TRANSFERASE 32 U/L (14-36); BILIRUBIN,DIRECT 0.1 mg/dL (0.0-0.4); BILIRUBIN,TOTAL 1.4 mg/dL (0.2-1.3); BLOOD UREA NITROGEN 8 mg/dL (7-20); CALCIUM 10.3 mg/dL (8.4-10.2); CARBON DIOXIDE 18 mmol/L (22-30); CHLORIDE 105 mmol/L (98-107); GLUCOSE 101 mg/dL (75-110); POTASSIUM 4.7 mmol/L (3.6-5.0); TOTAL PROTEIN 9.5 g/dL (6.3-8.2)
--- NOTE | 2019-09-26 10:39 | RADIOLOGY REPORT (SQ) ---
EXAM DESCRIPTION: CT ABD/PELVIS NO ORAL OR IV IMAGES COMPLETED DATE/TIME: 09/26/2019 10:09 am REASON FOR STUDY: left flank pain COMPARISON: None. TECHNIQUE: CT scan of the abdomen and pelvis performed without intravenous or oral contrast. Images reviewed with lung, soft tissue, and bone windows. Reconstructed coronal and sagittal MPR images revi ewed. All images stored on PACS. All CT scanners at this facility use dose modulation, iterative reconstruction, and/or weight based d osing when appropriate to reduce radiation dose to as low as reasonably achievable (ALARA). [facility]: Dose Right [facility]: CareDose [facility]: Dose Right [facility]: Teradose 4D [facility]: Smart Appinions RADIATION DOSE: CT Rad equipment meets quality standard of care and radiation dose reduction techniq ues were employed. CTDIvol: 8.4 mGy. DLP: 405 mGy-cm. LIMITATIONS: None. FINDINGS: LOWER CHEST: No acute findings. NON-CONTRASTED LIVER, SPLEEN, ADRENALS: Evaluation is limited due to the absence of intravenous contr ast. There is no evidence of hepatic steatosis. The spleen is normal in size. There is no adrenal mass. PANCREAS: No acute gross abnormality of the pancreas. GALLBLADDER: No abnormality that is apparent on CT. RIGHT KIDNEY AND URETER: Evaluation is limited due to the absence of intravenous contrast. There is no hydronephrosis, nephrolithiasis, hydroureter or ureterolithiasis. LEFT KIDNEY AND URETER: Evaluation is limited due to the absence of intravenous contrast. There is n o hydronephrosis, nephrolithiasis, hydroureter or ureterolithiasis. AORTA AND RETROPERITONEUM: No aneurysm of the abdominal aorta. No retroperitoneal adenopathy, hemorr fawad or mass. BOWEL AND PERITONEAL CAVITY: No bowel obstruction, bowel wall thickening or pericolonic/ perienteric inflammation. No mesenteric adenopathy, free intraperitoneal fluid or mesenteric/ omental inflammati on. APPENDIX: Normal. PELVIS, BLADDER, AND ABDOMINAL WALL:Miniscule fat containing ventral hernia (image 40 of series 3). There is no abnormality of the uterus or adnexa that is apparent on CT. The urinary bladder is contr acted. 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 OTHER: No other finding. IMPRESSION: No acute intra-abdominal abnormality. COMMENT: Quality ID # [id number]: Final reports with documentation of one or more dose reduction techniques (e.g., Automated exposure control, adjustment of the mA and/or kV according to patient size, use of iterative reconstruction technique) TECHNICAL DOCUMENTATION: JOB ID: [id number] 2010 [employer]- All Rights Reserved Reading location - IP/workstation name: [email or web address]
[2019-09-26] MEDS ORDERED: KETOROLAC TROMETHAMINE INJ/PF 30 MG/1 ML SDV IV ONE (11:02)
[2019-09-26 11:43] LABS: BACTERIA (WET MOUNT) 4+ BACTERIA SEEN; EPITHELIALS (WET MOUNT) 4+ EPITHELIALS SEEN; RBCS (WET MOUNT) NO RBCS SEEN; T.VAGINALIS (WET MOUNT) NO TRICHOMONAS SEEN; WBCS (WET MOUNT) RARE WBCS SEEN; YEAST (WET MOUNT) NO YEAST SEEN
[2019-09-26] MEDS ORDERED: CEFTRIAXONE INJ 250 MG VIAL IM ONE (11:48)
[2019-09-26 11:53] LABS: AMORPHOUS SEDIMENT,URINE TRACE /HPF; APPEARANCE,URINE CLOUDY; BILIRUBIN,URINE NEGATIVE (NEGATIVE); COLOR,URINE YELLOW; GLUCOSE, URINE NEGATIVE (NEGATIVE); KETONES,URINE TRACE mg/dL (NEGATIVE); LEUKOCYTE ESTERASE,URINE LARGE (NEGATIVE); NITRITE,URINE NEGATIVE (NEGATIVE); PROTEIN,URINE NEGATIVE (NEGATIVE); URINE SPECIFIC GRAVITY 1.009; UROBILINOGEN,URINE NEGATIVE mg/dL (<2.0)
[2019-09-26 13:19] LABS: CHLAM PCR NOT DETECTED (NOT DETECT)
[2019-09-26 13:52] VITALS: BP 149/86
== END 2019-09-26 14:21 | disposition home or self-care (01) ==
LOC: ER 07:51
DX: N73.9 Female pelvic inflammatory disease, unspecified (principal); N76.0 Acute vaginitis; B96.89 Other specified bacterial agents as the cause of diseases classified elsewhere; R10.9 Unspecified abdominal pain; R10.32 Left lower quadrant pain; M54.9 Dorsalgia, unspecified; Z87.442 Personal history of urinary calculi; F17.200 Nicotine dependence, unspecified, uncomplicated
CPT/HCPCS: 99284; 96361; 96374; 36415; 87210; 85025; 80053; 81001; 87491; 87591; 74176; J1885; J2270; J2405; J7030; J0696

== ENCOUNTER 2019-10-21 14:30 | Emergency (ER) | payer OTHER ==
[2019-10-21 14:47] LABS: ABSOLUTE BASOPHILS # (AUTO) 0.1 10^3/uL (0.0-0.2); ABSOLUTE LYMPHOCYTES (AUTO) 2.6 10^3/uL (0.5-4.7); ABSOLUTE MONOCYTES (AUTO) 0.5 10^3/uL (0.1-1.4); ABSOLUTE NEUT (AUTO) 10.9 10^3/uL (1.7-8.2); BASOPHILS % (AUTO) 0.8 % (0-2); HEMATOCRIT 46.7 % (36.0-47.0); HEMOGLOBIN 16.4 g/dL (12.0-15.5); LYMPHOCYTES % (AUTO) 18.2 % (13-45); MEAN CORPUSCULAR HGB CONC 35.1 g/dL (32.0-36.0); MEAN CORPUSCULAR VOLUME 97 fl (80-97); MONOCYTES % (AUTO) 3.5 % (3-13); PLATELET COUNT 493 10^3/uL (150-450); RED BLOOD COUNT 4.81 10^6/uL (3.72-5.28); RED CELL DISTRIBUTION WIDTH 12.9 % (11.5-14.0); SEGMENTED NEUTROPHILS % (AUTO) 77.5 % (42-78); TOTAL CELLS COUNTED % (AUTO) 100 %; WHITE BLOOD COUNT 14.1 10^3/uL (4.0-10.5)
[2019-10-21 15:08] LABS: ALBUMIN 4.8 g/dL (3.5-5.0); ALKALINE PHOSPHATASE 86 U/L (38-126); ANION GAP 15 (5-19); ASPARTATE AMINO TRANSFERASE 30 U/L (14-36); BILIRUBIN,TOTAL 1.4 mg/dL (0.2-1.3); BLOOD UREA NITROGEN 13 mg/dL (7-20); CALCIUM 9.5 mg/dL (8.4-10.2); CARBON DIOXIDE 15 mmol/L (22-30); CHLORIDE 100 mmol/L (98-107); GLUCOSE 106 mg/dL (75-110); POTASSIUM 4.4 mmol/L (3.6-5.0); TOTAL PROTEIN 8.4 g/dL (6.3-8.2)
[2019-10-21] MEDS ORDERED: METOCLOPRAMIDE HCL INJ/PF 10 MG/2 ML SDV IV ONE (15:54)
[2019-10-21] MEDS ORDERED: FAMOTIDINE INJ/PF 20 MG/2 ML SDV IV ONE (15:54)
[2019-10-21] MEDS ORDERED: NORMAL SALINE 1000 ML 1,000 ML IV ONE ×2 (15:54→18:04)
--- NOTE | 2019-10-21 15:57 | ER Document Report ---
ED General - General Chief Complaint: Nausea/Vomiting Stated Complaint: ALTERED MENTAL STATUS Time Seen by Provider: 10/21/19 15:51 Mode of Arrival: Medic Information source: Patient Notes: Patient is a 39-year-old female well-known to this department with history of bipolar, depression, anxiety and PTSD. She presents to the emergency department after EMS was called to her residence for a possible overdose and unresponsive person. Patient arrives to the emergency department dry heaving. She smells of alcohol. According to her roommates on scene she allegedly overdosed on unknown pills. They believe she took 5 or 6 tablets of an unknown substance. Patient was not answering questions on arrival. She has very slurred speech. TRAVEL OUTSIDE OF THE [place] IN LAST 30 DAYS: No - Related Data Allergies/Adverse Reactions: No Known Allergies Allergy (Verified 09/26/19 09:09) Past Medical History - General Information source: Patient - Social History Smoking Status: Current Every Day Smoker Frequency of alcohol use: Heavy Drug Abuse: Prescription drugs Family History: Reviewed & Not Pertinent Renal/ Medical History: Reports: Hx Kidney Stones Musculoskeletal Medical History: Reports Hx Arthritis, Reports Hx Musculoskeletal Deformity, Reports Hx Musculoskeletal Trauma Psychiatric Medical History: Reports: Hx Anxiety, Hx Bipolar Disorder, Hx Depression Past Surgical History: Reports: Hx Breast Surgery - augmentation, Hx Hyst erectomy, Hx Orthopedic Surgery - L5S1 fusion - Immunizations Immunizations up to date: Yes Hx Diphtheria, Pertussis, Tetanus Vaccination: Yes Review of Systems - Review of Systems Constitutional: No symptoms reported EENT: No symptoms reported Cardiovascular: No symptoms reported Respiratory: No symptoms reported Gastrointestinal: Vomiting Genitourinary: No symptoms reported Female Genitourinary: No symptoms reported Musculoskeletal: No symptoms reported Skin: No symptoms reported Hematologic/Lymphatic: No symptoms reported Neurological/Psychological: Depression, Anxiety Physical Exam - Vital signs Vitals: Pulse Ox 98 10/21/19 15:11 - Notes Notes: PHYSICAL EXAMINATION: GENERAL: Lethargic, dry heaving, disheveled. HEAD: Atraumatic, normocephalic. EYES: Pupils equal round and reactive to light, extraocular movements intact, conjunctiva are normal. ENT: Nares patent, oropharynx clear without exudates. Moist mucous membranes. NECK: Normal range of motion, supple without lymphadenopathy LUNGS: Breath sounds clear to auscultation bilaterally and equal. No wheezes rales or rhonchi. HEART: Regular rate and rhythm without murmurs ABDOMEN: Soft, nontender, nondistended abdomen. No guarding, no rebound. No masses appreciated. Female : deferred Musculoskeletal: Normal range of motion, no pitting or edema. No cyanosis. NEUROLOGICAL: Cranial nerves grossly intact. PSYCH: Tearful, anxious. SKIN: Warm, Dry, normal turgor, no rashes or lesions noted. Course - Re-evaluation Re-evalutation: 10/21/19 23:15 Patient is more alert, she tells me that she did take approximately 6 tablets of an unknown medication she states to help with her anxiety. Patient reports she has been out of her psychiatric medications for at least 3 days. She states that she has been drinking alcohol to try to help with her symptoms. She is still acutely intoxicated. She states that she has no way to get her mental hea lth medications renewed she does not have a psychiatric provider in [place] and she has no way to get to [place]. She will be held overnight on a 24- hour petition due to her overdose so that she can be seen by psych in the morning. Patient made aware plan of care. Dr. chatman also aware of patient's situation and condition in the emergency department and he has signed IVC papers. - Vital Signs Vital signs: Temp Pulse Resp BP Pulse Ox 99.0 F 97 21 H 148/93 H 97 10/21/19 19:06 10/21/19 19:12 10/21/19 22:02 10/21/19 22:02 10/21/19 22:02 - Laboratory Result Diagrams: 10/21/19 14:38 10/21/19 14:38 Laboratory results interpreted by me: 10/21/19 10/21/19 10/21/19 14:38 14:38 14:38 WBC 14.1 H Hgb 16.4 H MCH 34.0 H Plt Count 493 H Absolute Neuts (auto) 10.9 H Sodium 130.3 L Carbon Dioxide 15 L Total Bilirubin 1.4 H Total Protein 8.4 H Urine Protein Urine Blood Urine Nitrite Salicylates < 1.0 L Acetaminophen < 10 L 10/21/19 17:51 WBC Hgb MCH Plt Count Absolute Neuts (auto) Sodium Carbon Dioxide Total Bilirubin Total Protein Urine Protein 30 H Urine Blood MODERATE H Urine Nitrite POSITIVE H Salicylates Acetaminophen Discharge - Discharge Clinical Impression: ETOH abuse Overdose Qualifiers: Encounter type: initial encounter Injury intent: undetermined intent Qualified Code(s): T50.904A - Poisoning by unspecified drugs, medicaments and biological substances, undetermined, initial encounter Vomiting Qualifiers: Vomiting type: unspecified Vomiting Intractability: unspecified Nausea presence: unspecified Qualified Code(s): R11.10 - Vomiting, unspecified Condition: Stable Disposition: PSYCH HOSP/UNIT
[2019-10-21] MEDS ORDERED: ONDANSETRON HCL INJ/PF 4 MG/2 ML SDV IV ONE (17:22)
[2019-10-21 18:12] LABS: AMORPHOUS SEDIMENT,URINE TRACE /HPF; APPEARANCE,URINE SLIGHTLY-CLOUDY; BILIRUBIN,URINE NEGATIVE (NEGATIVE); COLOR,URINE YELLOW; GLUCOSE, URINE NEGATIVE (NEGATIVE); KETONES,URINE NEGATIVE (NEGATIVE); LEUKOCYTE ESTERASE,URINE NEGATIVE (NEGATIVE); NITRITE,URINE POSITIVE (NEGATIVE); PROTEIN,URINE 30 mg/dL (NEGATIVE); URINE SPECIFIC GRAVITY 1.014; UROBILINOGEN,URINE NEGATIVE mg/dL (<2.0)
[2019-10-21 18:13] LABS: ALCOHOL 155 mg/dL (NONE DETECTED)
[2019-10-21 18:14] LABS: ACETAMINOPHEN < 10 ug/mL (10-30); SALICYLATE < 1.0 mg/dL (2.0-20.0)
[2019-10-21 18:24] LABS: URINE AMPHETAMINES SCREEN NEGATIVE; URINE BARBITURATES SCREEN NEGATIVE; URINE BENZODIAZEPINES SCREEN NEGATIVE; URINE COCAINE SCREEN NEGATIVE; URINE MARIJUANA (THC) SCREEN NEGATIVE; URINE METHADONE SCREEN NEGATIVE; URINE PHENCYCLIDINE SCREEN NEGATIVE
[2019-10-21] MEDS ORDERED: CEFTRIAXONE INJ 1000 MG VIAL IV ONE (23:13)
[2019-10-22] MEDS: CEPHALEXIN 500 MG CAPSULE PO SCH ×2 (09:22→17:29)
--- NOTE | 2019-10-22 17:18 | ER Document Report ---
Doctor's Note Notes: 10/22/19 17:17 PHYSICAL EXAMINATION: GENERAL: Appears well, healthy, well-nourished, no acute distress. LUNGS: Equal breath sounds bilaterally and clear to auscultation. No wheezes rales or rhonchi. CARDIOVASCULAR: S1-S2, regular rate, regular rhythm. Radial pulses 2+, normal. ABDOMEN: Normoactive bowel sounds. Soft, nontender, no guarding, no rebound tenderness, and no masses palpated. PSYCH: Normal mood, normal affect. Patient is a 39-year-old female presents emergency department with altered mental status. Patient is now awake alert and oriented. Denies any suicidal or homicidal ideation. Mental health has evaluated the patient patient will follow-up with mental health in regards to this visit. Patient had a urinary tract infection. We will place her on Keflex. Follow-up precautions were given. Verbal discharge instructions were given to the patient. They verbalized understanding. They are stable for discharge.
[2019-10-22 17:37] VITALS: BP 125/89
--- NOTE | 2019-10-25 08:23 | PSYCHOLOGICAL NOTE ---
Psych Note - Psych Note Date seen by psych provider: 10/22/19 Time seen by psych provider: 11:44 - [id number]. Psych Note: Presenting Problem: Patient is a 39 year old female who presented to the [facility] ED yesterday late afternoon via EMS after friend called them due to patient taking an unknown substance and patient having abdominal pain with altered mental status. Patient admitted to medical staff she drank beer all yesterday morning and then took 5-6 of her friend's/roommate's pills. Medical documentation noted pupils dilated, patient reported vomiting 5 times since noon yesterday and dry heaving in the ED. Documentation noted patient scratching profusely both upper extremities and patient said she wasn't sure why. Patient's roommate Artur stated he's only prescribed Naltrexone and none are missing. He also informed medical staff they have another roommate who is in their 80s, has lots of medications but there was no way patient had access. Patient's Serum Alcohol Level upon arrival was 155. Patient identified "I took everything, it was my roommate's, I think it was an anti drinking pill." She identified she had been drinking beer as well. Patient denied doing this to take her life. She stated it was "to not feel and forget." She acknowledged "I found out this last week my mother when everyone else knew for the past 2 months." Patient stated she goes to [facility] for medication management and last appointment was 09/29/2019 so one upcoming. She reported being prescribed the following medication: Gaapentin 800MG three times a day, Klonopin 1MG three times a day, Celexa 20MG daily, Ambien 10MG at night and Latuda 80MG daily. Patient admitted she did not take any medication yesterday and said "most of the time" when asked if she takes medications as prescribed. She denied suicidal ideation. Chart review revealed patient was seen in the ED by Behavioral Health 12/08/18 and 12/09/18 (same visit) were she was positive for opiates and Serum Alcohol Level was 112. Presenting problems were suicidal ideation and substance abuse. It was documented she had a mood disorder likely related to substance use. She had reported she was thinking about cutting her wrist because she was wfrais she would relapse on heroin (had been sober 1 month). She had noted a history of cutting when off medication and drinking alcohol. At that time she was seeing an online provider and recommended to continue doing so or find a local provider. She was seen three times in 2016 for anxiety. Patient was alert and oriented to self, person, place, time and situation. Mood was euthymic with congruent affect, she did get depressed when talking about her mother (appropriate, not uncontrollable). She denied current suicidal and homicidal ideation, admitted to drinking beer and taking 5-6 of roommate's medication to not feel/forget and was adamant ot was not an attempt to kill herself. Patient did not appear to be responding to internal stimuli as evidenced by fair eye contact and answering questions appropriately when addressed. Thought processes were linear and organized. Conversational speech was within normal limits for rate, tone and prosody. Intellectual abilities are estimated to be average. Insight, judgment and impulse control were fair as evidenced by discussing and processing trigger to drinking and taking pills being finding out this week her mother when others knew for the past 2 months. Clinical Presentation: Altered Mental Status Alcohol Intoxication Took roommate's unknown pills (5-6) Diagnosis: Uncomplicated bereavement Impression/Plan: Patient is cleared from acute psychiatric services. Recommendation to [facility] 24 Hour Petition for Evaluation. Patient has had time to sober up. She denied suicidal and homicidal ideation, admitted to drinking beer and taking 5-6 of roommate's pills to not feel/forget since finding out this past week her mother when others knew for the past 2 months. Outpatient provider is already [facility], she is due for a medication management appointment, recommended she call them first thing Wednesday morning to inquire about next appointment and when she goes tell them about current situation so they can adjust medications as they see appropriate. Also instructed her to request therapy. Provided the mental health outpatient resource sheet which highlighted both [facility] numbers for crisis/talk therapy/linkage to other services and supports, as well as documented follow up with current provider at [facility] and request therapy. Consulted with Dr. Cyr regarding the management and care of patient. ED Physician in agreement with recommendations.
== END 2019-10-22 17:36 | disposition home or self-care (01) ==
LOC: ER 14:30
DX: T50.904A Poisoning by unspecified drugs, medicaments and biological substances, undetermined, initial encounter (principal); F10.10 Alcohol abuse, uncomplicated; R11.10 Vomiting, unspecified; N30.01 Acute cystitis with hematuria; R41.82 Altered mental status, unspecified; R11.2 Nausea with vomiting, unspecified; F17.200 Nicotine dependence, unspecified, uncomplicated
CPT/HCPCS: 99285; 96361; 96375; 96365; 36415; 80307 ×4; 84702; 83690; 85025; 80053; 81001; J2765; J0696; J2405; J7030; S0028

== ENCOUNTER 2020-02-26 18:56 | Observation (INO) | payer OTHER ==
--- NOTE | 2020-02-26 19:51 | ER Document Report ---
HPI - HPI Time Seen by Provider: 02/26/20 19:41 Context: Patient is a 39-year-old female who presents emergency department with a chief complaint of rib pain. Patient reports 2 days ago she was carrying a heavy box when she was going down wooden steps when she slipped and fell. Patient reports when she fell on the third step she struck her right lateral ribs. Patient reports she is attempted to take ibuprofen and other anti-inflammatories without much relief. Patient reports she does have an abrasion to her right lateral ribs. Rib pain is worse with movement, coughing or deep breathing. Patient states she feels like there is a clicking sensation like something is popping when she takes a deep breath. Denies use of blood thinners. States she did not hit her head or have a loss of consciousness. - REPRODUCTIVE Reproductive: DENIES: : Past Medical History - General Information source: Patient - Social History Lives with: Spouse/Significant other Family History: Reviewed & Not Pertinent - Past Medical History Cardiac Medical History: Reports: None Pulmonary Medical History: Reports: None EENT Medical History: Reports: None Neurological Medical History: Reports: None Endocrine Medical History: Reports: None Renal/ Medical History: Reports: Hx Kidney Stones Malignancy Medical History: Reports: None GI Medical History: Reports: None Musculoskeletal Medical History: Reports Hx Arthritis, Reports Hx Musculoskeletal Deformity, Reports Hx Musculoskeletal Trauma Skin Medical History: Reports None Psychiatric Medical History: Reports: Hx Anxiety, Hx Bipolar Disorder, Hx Depression Traumatic Medical History: Reports: None Infectious Medical History: Reports: None Past Surgical History: Reports: Hx Breast Surgery - augmentation, Hx Hysterectomy, Hx Orthopedic Surgery - L5S1 fusion - Immunizations Immunizations up to date: Yes Hx Diphtheria, Pertussis, Tetanus Vaccination: Yes Vertical Provider Document - CONSTITUTIONAL Agree With Documented VS: Yes Exam Limitations: No Limitations General Appearance: No Apparent Distress Notes: GENERAL: Well-appearing, well-nourished and in no acute distress. HEAD: Atraumatic, normocephalic. EYES: Pupils equal round and reactive to light, extraocular movements intact, sclera anicteric, conjunctiva are normal. ENT: TMs normal, nares patent, oropharynx clear without exudates. Moist mucous membranes. NECK: Normal range of motion, supple without lymphadenopathy or JVD. LUNGS: Breath sounds clear to auscultation bilaterally and equal. No wheezes rales or rhonchi. Abrasion noted to the right lateral ribs. No active bleeding. No significant ecchymosis. Patient has point tenderness over the right lateral and right posterior ribs. Anterior chest wall does not reveal any abrasions or ecchymosis. HEART: Regular rate and rhythm without murmurs, rubs or gallops. ABDOMEN: Soft, nontender, normoactive bowel sounds. No guarding, no rebound. No masses appreciated. BACK: No cervical, thoracic, lumbar midline tenderness. No saddle anesthesia, normal distal neurovascular exam. GENITOURINARY: Deferred. EXTREMITIES: Normal range of motion, no pitting or edema. No clubbing or cyanosis. NEUROLOGICAL: Cranial nerves II through XII grossly intact. Normal speech, normal gait. PSYCH: Normal mood, normal affect. SKIN: Warm, Dry, normal turgor, no rashes or lesions noted. - INFECTION CONTROL TRAVEL OUTSIDE OF THE [place] IN LAST 30 DAYS: No Course - Re-evaluation Re-evalutation: 02/26/20 19:50 Will obtain a chest x-ray with focus on the right ribs.
--- NOTE | 2020-02-26 20:28 | RADIOLOGY REPORT (SQ) ---
Chest and right rib x-ray three views on 02/26/2020 at 7:53 PM CLINICAL INDICATION: Fall, right rib pain COMPARISON: None FINDINGS: There is small right apical pneumothorax with approximately 2.4 cm of pleural separation superiorly. This also has pleural separation laterally. This is likely still too small for chest tube placement at this time and would recommend follow-up by chest x-ray. There is probable trace right pleural effusion. The lungs are otherwise clear. Cardiac, hilar and mediastinal contours are within normal limits. Pulmonary vascularity is within normal limits. There is an acute mildly displaced fracture of the right posterior 10th rib. No other definite rib fracture is noted. IMPRESSION: 1. Small right-sided pneumothorax which is borderline in size for chest tube placement. This likely does not require chest tube at this time unless the patient is very symptomatic from this. Would recommend at least close clinical follow-up and short-term follow-up imaging. 2. Acute right posterior 10th rib fracture.
--- NOTE | 2020-02-26 20:54 | ER Document Report ---
ED Medical Screen (RME) - General Stated Complaint: FALL RIB PAIN Time Seen by Provider: 02/26/20 19:41 Notes: Patient is a 39-year-old female who presents emergency department with a chief complaint of rib pain. Patient reports 2 days ago she was carrying a heavy box when she was going down wooden steps when she slipped and fell. Patient reports when she fell on the third step she struck her right lateral ribs. Patient reports she is attempted to take ibuprofen and other anti-inflammatories without much relief. Patient reports she does have an abrasion to her right lateral ribs. Rib pain is worse with movement, coughing or deep breathing. Patient states she feels like there is a clicking sensation like something is popping when she takes a deep breath. Denies use of blood thinners. States she did not hit her head or have a loss of consciousness. - REPRODUCTIVE Reproductive: DENIES: : Past Medical History - General Information source: Patient - Social History Lives with: Spouse/Significant other Family History: Reviewed & Not Pertinent - Past Medical History Cardiac Medical History: Reports: None Pulmonary Medical History: Reports: None EENT Medical History: Reports: None Neurological Medical History: Reports: None Endocrine Medical History: Reports: None Renal/ Medical History: Reports: Hx Kidney Stones Malignancy Medical History: Reports: None GI Medical History: Reports: None Musculoskeletal Medical History: Reports Hx Arthritis, Reports Hx Musculoskeletal Deformity, Reports Hx Musculoskeletal Trauma Skin Medical History: Reports None Psychiatric Medical History: Reports: Hx Anxiety, Hx Bipolar Disorder, Hx Depression Traumatic Medical History: Reports: None Infectious Medical History: Reports: None Past Surgical History: Reports: Hx Breast Surgery - augmentation, Hx Hysterectomy, Hx Orthopedic Surgery - L5S1 fusion - Immunizations Immunizations up to date: Yes Hx Diphtheria, Pertussis, Tetanus Vaccination: Yes Vertical Provider Document - CONSTITUTIONAL Agree With Documented VS: Yes Exam Limitations: No Limitations General Appearance: No Apparent Distress Notes: GENERAL: Well-appearing, well-nourished and in no acute distress. HEAD: Atraumatic, normocephalic. EYES: Pupils equal round and reactive to light, extraocular movements intact, sclera anicteric, conjunctiva are normal. ENT: TMs normal, nares patent, oropharynx clear without exudates. Moist mucous membranes. NECK: Normal range of motion, supple without lymphadenopathy or JVD. LUNGS: Breath sounds clear to auscultation bilaterally and equal. No wheezes rales or rhonchi. Abrasion noted to the right lateral ribs. No active bleeding. No significant ecchymosis. Patient has point tenderness over the right lateral and right posterior ribs. Anterior chest wall does not reveal any abrasions or ecchymosis. HEART: Regular rate and rhythm without murmurs, rubs or gallops. ABDOMEN: Soft, nontender, normoactive bowel sounds. No guarding, no rebound. No masses appreciated. BACK: No cervical, thoracic, lumbar midline tenderness. No saddle anesthesia, normal distal neurovascular exam. GENITOURINARY: Deferred. EXTREMITIES: Normal range of motion, no pitting or edema. No clubbing or cyanosis. NEUROLOGICAL: Cranial nerves II through XII grossly intact. Normal speech, normal gait. PSYCH: Normal mood, normal affect. SKIN: Warm, Dry, normal turgor, no rashes or lesions noted. TRAVEL OUTSIDE OF THE [place] IN LAST 30 DAYS: No - Related Data Allergies/Adverse Reactions: No Known Allergies Allergy (Verified 09/26/19 09:09) Past Medical History - Past Medical History Cardiac Medical History: Reports: None Pulmonary Medical History: Reports: None EENT Medical History: Reports: None Neurological Medical History: Reports: None Endocrine Medical History: Reports: None Renal/ Medical History: Reports: Hx Kidney Stones Malignancy Medical History: Reports: None GI Medical History: Reports: None Musculoskeltal Medical History: Reports Hx Arthritis, Reports Hx Musculoskeletal Deformity, Reports Hx Musculoskeletal Trauma Skin Medical History: Reports None Psychiatric Medical History: Reports: Hx Anxiety, Hx Bipolar Disorder, Hx Depression Traumatic Medical History: Reports: None Infectious Medical History: Reports: None Past Surgical History: Reports: Hx Breast Surgery - augmentation, Hx Hysterectomy, Hx Orthopedic Surgery - L5S1 fusion - Immunizations Immunizations up to date: Yes Hx Diphtheria, Pertussis, Tetanus Vaccination: Yes Course - Re-evaluation Re-evalutation: 02/26/20 20:53 Patient KATI level upgraded due to pneumothorax. Vani charge nurse aware. - Diagnostic Test Radiology reviewed: Reports reviewed Radiology results interpreted by me: 02/26/20 20:53 Ribs w/Chest X-Ray 02/26/20 19:43 IMPRESSION: 1. Small right-sided pneumothorax which is borderline in size for chest tube placement. This likely does not require chest tube at this time unless the patient is very symptomatic from this. Would recommend at least close clinical follow-up and short-term follow-up imaging. 2. Acute right posterior 10th rib fracture.
--- NOTE | 2020-02-26 22:29 | ER Document Report ---
ED General - General Stated Complaint: FALL RIB PAIN Time Seen by Provider: 02/26/20 19:41 TRAVEL OUTSIDE OF THE [place] IN LAST 30 DAYS: No - HPI Notes: 39-year-old female presents with right-sided rib pain. Patient states that 2 d ays ago she was carrying a heavy wooden box, she accidentally slipped on the stairs, landing with her right side of her ribs onto the steps and then landing onto the concrete. She denies any other areas of injury. Did not hit her head, no loss of consciousness. She reports she has had extreme pain since, she has been trying to tough it out at home, she has been taking ibuprofen and Tylenol without relief. She states she feels a clicking sensation when she breathes. She started having some shortness of breath today described as being unable to take deep breaths. She is unsure of her last tetanus. - Related Data Allergies/Adverse Reactions: No Known Allergies Allergy (Verified 09/26/19 09:09) Past Medical History - General Information source: Patient - Social History Smoking Status: Unknown if Ever Smoked Family History: Reviewed & Not Pertinent - Past Medical History Cardiac Medical History: Reports: None Pulmonary Medical History: Reports: None EENT Medical History: Reports: None Neurological Medical History: Reports: None Endocrine Medical History: Reports: None Renal/ Medical History: Reports: Hx Kidney Stones Malignancy Medical History: Reports: None GI Medical History: Reports: None Musculoskeletal Medical History: Reports Hx Arthritis, Reports Hx Musc uloskeletal Deformity, Reports Hx Musculoskeletal Trauma Skin Medical History: Reports None Psychiatric Medical History: Reports: Hx Anxiety, Hx Bipolar Disorder, Hx Depression Traumatic Medical History: Reports: None Infectious Medical History: Reports: None Past Surgical History: Reports: Hx Breast Surgery - augmentation, Hx Hysterectomy, Hx Orthopedic Surgery - L5S1 fusion - Immunizations Immunizations up to date: Yes Hx Diphtheria, Pertussis, Tetanus Vaccination: Yes Review of Systems - Review of Systems Constitutional: No symptoms reported EENT: No symptoms reported Cardiovascular: denies: Chest pain Respiratory: Hurts to breathe, Short of breath Gastrointestinal: No symptoms reported Genitourinary: No symptoms reported Female Genitourinary: No symptoms reported Musculoskeletal: denies: Neck pain Skin: Other - Right ankle wound Hematologic/Lymphatic: No symptoms reported Neurological/Psychological: No symptoms reported Physical Exam - Vital signs Vitals: Temp 98.6 F 02/26/20 22:52 - General General appearance: Alert In distress: None - HEENT Head: Normocephalic, Atraumatic Extraocular movements intact: Yes Pupils: PERRL Neck: Supple - Respiratory Breath sounds: Normal Chest palpation: Tender, Wounds - Abrasion anterior chest wall. No: Subcutaneo us emphysema - Cardiovascular Rhythm: Regular Heart sounds: Normal auscultation Normal capillary refill: Yes - Abdominal Tenderness: Nontender - Back Back: No: Vertebra tenderness - Extremities General upper extremity: Normal ROM General lower extremity: Normal ROM - Neurological Neuro grossly intact: Yes Cognition: Normal Orientation: AAOx4 Adrian Coma Scale Eye Opening: Spontaneous Eckert Coma Scale Verbal: Oriented Eckert Coma Scale Motor: Obeys Commands Adrian Coma Scale Total: 15 Motor strength normal: LUE, RUE, LLE, RLE - Psychological Associated symptoms: Normal affect - Skin Skin Temperature: Warm Course - Re-evaluation Re-evalutation: 39-year-old female with right inferior chest wall pain, fell onto step/concrete while carrying a box 2 days ago. On exam she has marked tenderness to this area, there is no overlying skin abrasion, breath sounds are present bilaterally. Vital signs stable. Through the triage process she had a chest x- ray done which shows a right 10th rib fracture with a pneumothorax which radiology reports is too small for a chest tube. However suspect she might need a chest tube given her symptoms. Will obtain CT chest to evaluate for size as often chest x-rays do not demonstrate true size and additional rib fractures, will also get a look to see if there is anything that is bleeding. No head/neck trauma, no abdominal trauma. Will start multimodal pain control. 02/26/20 22:51 02/27/20 00:43 CT chest has resulted, images reviewed. Right-sided pneumothorax is moderate, approximately 30% in size. There are fractures of posterior ninth and 10th ribs 02/27/20 00:[address] Rosales. I will place a pigtail and then she will be admitted to his service for further management. He is requested to keep her on a clear liquid diet. 02/27/20 00:53 Patient updated on results. Consented for chest tube placement. 02/27/20 02:02 8 [place] percutaneous chest tube placed using kit that was available in the ED, this was not a not true pigtail kit, CXR obtained and tube appears to be present in pleural space with residual ptx - Vital Signs Vital signs: Temp Pulse Resp BP Pulse Ox 98.6 F 14 128/114 H 99 02/26/20 22:52 02/27/20 02:00 02/27/20 01:00 02/27/20 02:00 - Laboratory Result Diagrams: 02/26/20 23:18 02/26/20 23:18 Laboratory results interpreted by me: 02/26/20 02/26/20 23:18 23:18 WBC 14.3 H MCH 34.6 H Absolute Neuts (auto) 9.4 H Carbon Dioxide 21 L BUN 5 L - Diagnostic Test Radiology reviewed: Image reviewed, Reports reviewed Procedures - Chest Tube Right Midaxillary Time completed: 01:50 Consent obtained: Yes Chest tube pre-insertion: Sterile PPE donned, Chloraprep applied, Sterile drapes applied Size of [place] Tube (cm): 8 Anesthetic type: 1% Lidocaine Chest tube post-insertion: Sutured, Position confirmed w/ CXR, Low intermittent suction, Other - Air aspirated x2 Chest tube drainage: None Number of attempts: 1 Complications: No Discharge - Discharge Clinical Impression: Traumatic fracture of ribs of right side with pneumothorax Disposition: ADMITTED INPATIENT Admitting Provider: Surgicalist Unit Admitted: Surgical Floor
[2020-02-26] MEDS ORDERED: KETOROLAC TROMETHAMINE INJ/PF 30 MG/1 ML SDV IV ONE (22:36)
[2020-02-26] MEDS ORDERED: METHOCARBAMOL 500 MG TABLET PO ONE (22:36)
[2020-02-26] MEDS ORDERED: DIPH/PERTUSS(ACELL)/TETANUS VAC/PF 0.5 ML SYR (>=10YO) IM ONE (22:36)
[2020-02-26] MEDS ORDERED: MORPHINE SULFATE 10 MG/ML INJ IV ONE (22:36)
[2020-02-26 23:30] LABS: ABSOLUTE BASOPHILS # (AUTO) 0.1 10^3/uL (0.0-0.2); ABSOLUTE EOSINOPHILS # (AUTO) 0.2 10^3/uL (0.0-0.6); ABSOLUTE LYMPHOCYTES (AUTO) 3.8 10^3/uL (0.5-4.7); ABSOLUTE MONOCYTES (AUTO) 0.8 10^3/uL (0.1-1.4); ABSOLUTE NEUT (AUTO) 9.4 10^3/uL (1.7-8.2); BASOPHILS % (AUTO) 0.5 % (0-2); EOSINOPHILS % (AUTO) 1.4 % (0-6); HEMATOCRIT 40.5 % (36.0-47.0); HEMOGLOBIN 14.4 g/dL (12.0-15.5); LYMPHOCYTES % (AUTO) 26.7 % (13-45); MEAN CORPUSCULAR HEMOGLOBIN 34.6 pg (27.0-33.4); MEAN CORPUSCULAR HGB CONC 35.5 g/dL (32.0-36.0); MEAN CORPUSCULAR VOLUME 97 fl (80-97); MONOCYTES % (AUTO) 5.8 % (3-13); PLATELET COUNT 413 10^3/uL (150-450); RED BLOOD COUNT 4.17 10^6/uL (3.72-5.28); RED CELL DISTRIBUTION WIDTH 12.4 % (11.5-14.0); SEGMENTED NEUTROPHILS % (AUTO) 65.6 % (42-78); TOTAL CELLS COUNTED % (AUTO) 100 %; WHITE BLOOD COUNT 14.3 10^3/uL (4.0-10.5)
[2020-02-26 23:46] LABS: ALBUMIN 4.5 g/dL (3.5-5.0); ALKALINE PHOSPHATASE 89 U/L (38-126); ANION GAP 10 (5-19); ASPARTATE AMINO TRANSFERASE 28 U/L (14-36); BILIRUBIN,DIRECT 0.2 mg/dL (0.0-0.4); BILIRUBIN,TOTAL 0.6 mg/dL (0.2-1.3); BLOOD UREA NITROGEN 5 mg/dL (7-20); CALCIUM 9.9 mg/dL (8.4-10.2); CARBON DIOXIDE 21 mmol/L (22-30); CHLORIDE 107 mmol/L (98-107); GLUCOSE 87 mg/dL (75-110); POTASSIUM 4.3 mmol/L (3.6-5.0); TOTAL PROTEIN 7.9 g/dL (6.3-8.2)
--- NOTE | 2020-02-27 00:31 | RADIOLOGY REPORT (SQ) ---
CLINICAL INDICATION: R rib fracture with ptx, eval bleeding. . TECHNIQUE: Contrast-enhanced spiral axial CT imaging was obtained of the chest with multiplanar reconstructions. This exam was performed according to our departmental dose-optimization program, which includes automated exposure control, adjustment of the mA and/or kV according to patient size and/or use of iterative reconstruction techniques. COMPARISON: None. CORRELATION: None. FINDINGS: The heart is of normal size. No pericardial effusion. No bulky mediastinal adenopathy. The lungs demonstrate a moderate right pneumothorax measuring approximately 30%. This is a known finding. No significant pleural fluid. Dependent airspace disease right lung base. Visualized abdominal contents are unremarkable. Visualized bones demonstrate fracture of the right posterior ninth and 10th ribs.. IMPRESSION: Right pneumothorax, a known finding. No significant pleural fluid. Dependent airspace disease right lung base presumed atelectasis. Fracture right posterior ninth and 10th ribs.
[2020-02-27] MEDS ORDERED: MORPHINE SULFATE 10 MG/ML INJ IV ONE (00:54)
--- NOTE | 2020-02-27 03:15 | RADIOLOGY REPORT (SQ) ---
CLINICAL INDICATION: VERIFY PLACEMENT OF CHEST TUBE. Pneumothorax TECHNIQUE: A single portable AP view was obtained of the chest at 0155 hours. COMPARISON: February 26, 2020. FINDINGS: The cardiomediastinal silhouette is prominent but stable. The lungs demonstrate diffuse interstitial prominence. Small right apical pneumothorax, similar to prior. Interval placement of a small chest drain right lateral chest. No significant pleural fluid. IMPRESSION: Interval placement of chest drain. Pneumothorax is similar to prior.
[2020-02-27] MEDS ORDERED: OXYCODONE-ACETAMINOPHEN 5-325 MG TABLET PO PRN (03:52)
[2020-02-27] MEDS: OXYCODONE-ACETAMINOPHEN 5-325 MG TABLET PO PRN ×4 (05:42→21:14)
[2020-02-27] MEDS ORDERED: NICOTINE 21 MG/24 HR PATCH.TD24 TD ONE (06:15)
[2020-02-27] MEDS ORDERED: DEXTROSE 50%-WATER 25 GM/50 ML DISP.SYRIN IV PRN ×2 (07:05)
[2020-02-27] MEDS ORDERED: DEXTROSE 40% GEL 15 GM TUBE PO PRN ×2 (07:05)
[2020-02-27] MEDS ORDERED: GLUCAGON,HUMAN RECOMB 1 MG INJ SUBCUT PRN (07:05)
[2020-02-27] MEDS ORDERED: KETOROLAC TROMETHAMINE INJ/PF 30 MG/1 ML SDV IV PRN (08:41)
[2020-02-27] MEDS ORDERED: LIDOCAINE 1%/EPINEPHRINE INJ 20 ML VIAL ONE (08:44)
--- NOTE | 2020-02-27 08:49 | PDOC H&P ---
History of Present Illness Admission Date/PCP: 02/27/20 01:28 Patient complains of: Chest pain History of Present Illness: GOMEZ MCKEON is a 39 year old female Presents emergency department via ground rescue complaining of a 2-day history of shortness of breath, chest pain, difficulty taking a deep breath. Patient reports having fallen from standing position while mounting steps, slipped and landed on concrete on her right side including flank and back. Patient was seen in the emergency department where she had multiple x-rays of the chest showing rib fractures posteriorly right side ninth and 10th. She was eventually diagnosed with a right apical pneumothorax. She then had a CT scan of her chest which confirmed a 30% pneumothorax. The emergency department allegedly placed a right sided [place] thoracostomy tube, with follow-up chest x-ray demonstrating no improvement in the pneumothorax. The patient was admitted to the surgical service for observation. When it was ascertained that the patient had a nonfunctional chest tube, she was offered a replacement tube this morning. Patient consented. She is remained hemodynamically stable with adequate saturations. Past Medical History Past Medical History: Depression, anxiety Cardiac Medical History: Reports: None Pulmonary Medical History: Reports: None EENT Medical History: Reports: None Neurological Medical History: Reports: None Endocrine Medical History: Reports: None Malignancy Medical History: Reports: None GI Medical History: Reports: None Musculoskeltal Medical History: Reports: Arthritis Skin Medical History: Reports: None Psychiatric Medical History: Reports: Bipolar Disorder, Depression Traumatic Medical History: Reports: None Infectious Medical History: Reports: None Past Surgical History Past Surgical History: Bilateral breast implants Past Surgical History: Reports: Hysterectomy, Orthopedic Surgery - [id number] fusion Social History Smoking Status: Current Every Day Smoker Cigarettes Packs Per Day: 0.5 Electronic Cigarette use?: No Frequency of Alcohol Use: Social Hx Recreational Drug Use: No Hx Prescription Drug Abuse: No Family History Family History: None, Reviewed & Not Pertinent Parental Family History Reviewed: No Children Family History Reviewed: No Sibling(s) Family History Reviewed.: No Medication/Allergy Home Medications: Citalopram Hydrobromide [Celexa 10 mg Tablet] 20 mg PO DAILY 12/08/18 Clonazepam [Klonopin 1 mg Tablet] 1 mg PO Q8HP PRN 12/08/18 Divalproex Sodium [Depakote ER 500 mg Tab.sr] 500 mg PO PRN PRN 12/08/18 Gabapentin [Neurontin 400 mg Capsule] 800 mg PO Q8 12/08/18 Zolpidem Tartrate [Ambien 5 mg Tablet] 10 mg PO QHS 12/08/18 Lurasidone HCl [Latuda] 80 mg PO DAILY 12/09/18 Doxycycline Monohydrate 100 mg PO BID #28 capsule 09/26/19 Metronidazole [Flagyl 500 mg Tablet] 500 mg PO Q12 #14 tablet 09/26/19 Cephalexin [Keflex] 500 mg PO BID #14 capsule 10/22/19 Allergies/Adverse Reactions: No Known Allergies Allergy (Verified 09/26/19 09:09) Review of Systems Constitutional: PRESENT: as per HPI Eyes: ABSENT: visual disturbances Ears: ABSENT: hearing changes Cardiovascular: ABSENT: chest pain, dyspnea on exertion, edema, orthropnea, pa lpitations Respiratory: PRESENT: as per HPI Gastrointestinal: ABSENT: abdominal pain, constipation, diarrhea, hematemesis, hematochezia, nausea, vomiting Genitourinary: ABSENT: dysuria, hematuria Musculoskeletal: PRESENT: back pain Psychiatric: PRESENT: anxiety, depression, other - Bipolar disorder Physical Exam Vital Signs: Temp Pulse Resp BP Pulse Ox 97.6 F 89 18 119/85 100 02/27/20 03:10 02/27/20 06:00 02/27/20 03:10 02/27/20 06:00 02/27/20 03:10 Intake & Output 02/26/20 02/27/20 02/28/20 06:59 06:59 06:59 Intake Total 300 Balance 300 Weight 58.967 kg General appearance: PRESENT: no acute distress Head exam: PRESENT: normocephalic Eye exam: PRESENT: EOMI Mouth exam: PRESENT: dry mucosa Neck exam: PRESENT: full ROM Respiratory exam: PRESENT: other - Depressed breath sounds right chest; no crepitus; right pigtail thoracostomy tube sitting in position Cardiovascular exam: PRESENT: RRR Pulses: PRESENT: normal carotid pulses, normal radial pulses, normal femoral pulses GI/Abdominal exam: PRESENT: soft Rectal exam: PRESENT: deferred Extremities exam: PRESENT: full ROM Musculoskeletal exam: PRESENT: full ROM Neurological exam: PRESENT: oriented to person, oriented to place, oriented to time, oriented to situation Psychiatric exam: PRESENT: appropriate affect Results Laboratory Results: 02/26/20 23:18 02/26/20 23:18 02/26/20 02/26/20 23:18 23:18 WBC 14.3 H RBC 4.17 Hgb 14.4 Hct 40.5 MCV 97 MCH 34.6 H MCHC 35.5 RDW 12.4 Plt Count 413 Seg Neutrophils % 65.6 Sodium 138.1 Potassium 4.3 Chloride 107 Carbon Dioxide 21 L Anion Gap 10 BUN 5 L Creatinine 0.68 Est GFR ( Amer) > 60 Glucose 87 Calcium 9.9 Total Bilirubin 0.6 AST 28 Alkaline Phosphatase 89 Total Protein 7.9 Albumin 4.5 Impressions: Ribs w/Chest X-Ray 02/26/20 19:43 IMPRESSION: 1. Small right-sided pneumothorax which is borderline in size for chest tube placement. This likely does not require chest tube at this time unless the patient is very symptomatic from this. Would recommend at least close clinical follow-up and short-term follow-up imaging. 2. Acute right posterior 10th rib fracture. Chest CT 02/26/20 22:31 IMPRESSION: Right pneumothorax, a known finding. No significant pleural fluid. Dependent airspace disease right lung base presumed atelectasis. Fracture right posterior ninth and 10th ribs. Chest X-Ray 02/27/20 00:00 IMPRESSION: Interval placement of chest drain. Pneumothorax is similar to prior. Assessment & Plan - Diagnosis (1) Traumatic fracture of ribs of right side with pneumothorax Is this a current diagnosis for this admission?: Yes Plan: Impression: Status post fall 72 hours ago, with right 30% pneumothorax, and posterior rib fractures 9 and 10, minimally displaced, status post right thoracostomy tube, 8 [place], with catheter sitting in soft tissue, not in the right pleural space; no evidence of respiratory distress Plan: 1. Admit, n.p.o., check rapid Covid status 2. Proceed with placement of functional right thoracostomy tube under conscious sedation; The rationale for this was explained to the patient. She agreed to proceed. (2) Smoker Is this a current diagnosis for this admission?: Yes (3) Bipolar disorder Is this a current diagnosis for this admission?: Yes (4) Anxiety disorder Is this a current diagnosis for this admission?: Yes (5) Panic attacks Is this a current diagnosis for this admission?: Yes - Time Time Spent: 30 to 50 Minutes Critical Time spent with patient: Less than 15 minutes Smoking Cessation Education: 3 to 10 minutes Medications reviewed and adjusted accordingly: Yes Anticipated Discharge Disposition: Home, Self Care Anticipated Discharge Timeframe: within 72 hours
[2020-02-27] MEDS ORDERED: FENTANYL CITRATE INJ/PF 100 MCG/2 ML AMPUL ONE (09:26)
[2020-02-27] MEDS ORDERED: MIDAZOLAM 2 MG/2 ML INJ ONE (09:26)
[2020-02-27] MEDS ORDERED: PROPOFOL INJ 200 MG/20 ML VIAL IV ONE (09:27)
[2020-02-27] MEDS ORDERED: ONDANSETRON HCL INJ/PF 4 MG/2 ML SDV ONE (09:27)
[2020-02-27] MEDS ORDERED: DIPHENHYDRAMINE HCL 50 MG/ML VIAL IV PRN (09:44)
[2020-02-27] MEDS ORDERED: MEPERIDINE HCL/PF INJ 25 MG/1 ML DISP.SYRIN IV PRN (09:44)
[2020-02-27] MEDS ORDERED: MORPHINE SULFATE 10 MG/ML INJ IV PRN (09:44)
[2020-02-27] MEDS ORDERED: FENTANYL CITRATE INJ/PF 100 MCG/2 ML AMPUL IV PRN ×3 (09:44)
[2020-02-27] MEDS ORDERED: PROMETHAZINE HCL INJ 25 MG/1 ML VIAL IV PRN (09:44)
[2020-02-27] MEDS ORDERED: DOCUSATE SODIUM 100 MG CAPSULE PO SCH (10:00)
--- NOTE | 2020-02-27 10:01 | Operative Report ---
Operative Report DATE OF SURGERY: 02/27/20 PREOPERATIVE DIAGNOSIS: 1. Persisting right pneumothorax. 2. Right rib fract ures, 9 and 10 posteriorly. 3. Smoker POSTOPERATIVE DIAGNOSIS: Same OPERATION: 1. Removal of 8 [place] thoracostomy tube. 2. Placement right 24 Fr ench tube SURGEON: JIM HERMOSILLO ANESTHESIA: LMAC TISSUE REMOVED OR ALTERED: None COMPLICATIONS: None ESTIMATED BLOOD LOSS: Scant INTRAOPERATIVE FINDINGS: See below PROCEDURE: The patient was taken with the preop holding her to the main operating room where LMAC anesthesia was induced. The right chest was exposed, surgical timeout conducted. The right 8 [place] mini chest tube was removed from the patient's subcutaneous tissues. The chest tube was never in the right pleural space. The right chest was then prepped and draped with chlorhexidine. The skin at the previous chest tube exit site which was at approximately ICS 8 right lateral thoracic space was anesthetized with 1% plain lidocaine. The initial micro incision was extended with a 15 blade. Using a Corrie clamp, the intercostal muscles were spread, and the Corrie clamp was introduced into the right pleural cavity by popping through the intercostal muscles. There was a small gush of air. We now placed a 24 [place] right thoracostomy tube into the patient's chest, with the exit hole at approximately 10 cm from the skin edge. The chest tube was secured to the skin with two 2-0 Prolene sutures. Chest tube was hooked to Pleur-evac waterseal, with fluctuation but no air leaking. Chest tube site dressed with Xeroform 4 x 4's and tape. Chest tube secured to drainage tube with silk tape as well. Patient tolerated the procedure well, taken to recovery room in stable condition. Patient maintained excellent saturations throughout the procedure Portable chest x-ray pending at time dictation. We will hook the chest tube to suction initially.
--- NOTE | 2020-02-27 10:51 | RADIOLOGY REPORT (SQ) ---
EXAM DESCRIPTION: CHEST SINGLE VIEW IMAGES COMPLETED DATE/TIME: 02/27/2020 10:39 am REASON FOR STUDY: Interval change in right pneumothorax COMPARISON: CHEST FILMS 02/27/2020 CT chest 02/26/2020 EXAM PARAMETERS: NUMBER OF VIEWS: One view. TECHNIQUE: Single frontal radiographic view of the chest acquired. RADIATION DOSE: NA LIMITATIONS: None. FINDINGS: LUNGS AND PLEURA: Trace right apical pneumothorax. Large bore right chest tube in place. Minimal medial right lung base atelectasis. No right pleural effusion. Left hemithorax unremarkable MEDIASTINUM AND HILAR STRUCTURES: No masses. Contour normal. HEART AND VASCULAR STRUCTURES: Heart normal in size. Normal vasculature. BONES: Right lower rib fractures seen on CT are not apparent by plain film. HARDWARE: Large bore right chest tube, trace right apical pneumothorax OTHER: No other significant finding. IMPRESSION: Trace right apical pneumothorax. Right large bore chest tube in place. TECHNICAL DOCUMENTATION: JOB ID: [id number] 2010 [employer]- All Rights Reserved Reading location - IP/workstation name: [email or web address]
[2020-02-27] MEDS: DOCUSATE SODIUM 100 MG CAPSULE PO SCH ×2 (11:17→18:10)
[2020-02-27] MEDS: KETOROLAC TROMETHAMINE INJ/PF 30 MG/1 ML SDV IV PRN ×2 (16:03→21:09)
[2020-02-27] MEDS: GABAPENTIN 400 MG CAPSULE PO SCH ×2 (17:10→21:09)
[2020-02-27] MEDS: ZOLPIDEM TARTRATE 5 MG TABLET PO SCH (21:09)
[2020-02-28] MEDS: KETOROLAC TROMETHAMINE INJ/PF 30 MG/1 ML SDV IV PRN ×4 (04:11→21:30)
[2020-02-28] MEDS: OXYCODONE-ACETAMINOPHEN 5-325 MG TABLET PO PRN ×3 (04:11→16:47)
[2020-02-28] MEDS: GABAPENTIN 400 MG CAPSULE PO SCH ×3 (05:13→21:29)
--- NOTE | 2020-02-28 08:17 | RADIOLOGY REPORT (SQ) ---
EXAM DESCRIPTION: CHEST SINGLE VIEW IMAGES COMPLETED DATE/TIME: 02/28/2020 7:57 am REASON FOR STUDY: Interval change right chest COMPARISON: 02/27/2020 NUMBER OF VIEWS: One view. TECHNIQUE: Single frontal radiographic image of the chest acquired. LIMITATIONS: None. FINDINGS: LUNGS AND PLEURA: Large-bore right-sided chest tube remains in place with a small right ap ical pneumothorax. MEDIASTINUM AND HILAR STRUCTURES: Stable heart size and mediastinal structures. HEART AND VASCULAR STRUCTURES: Stable appearance. BONES: Unchanged. HARDWARE: None in the chest. OTHER: No other significant finding. IMPRESSION: No interval change. Small right apical pneumothorax. Large-bore right-sided chest tube remains in place. TECHNICAL DOCUMENTATION: JOB ID: [id number] 2010 [employer]- All Rights Reserved Reading location - IP/workstation name: [email or web address]
[2020-02-28] MEDS: NICOTINE 21 MG/24 HR PATCH.TD24 TD SCH (09:04)
[2020-02-28] MEDS: DOCUSATE SODIUM 100 MG CAPSULE PO SCH ×2 (09:07→18:11)
[2020-02-28] MEDS: CLONAZEPAM 1 MG TABLET PO PRN (18:44)
--- NOTE | 2020-02-28 19:42 | PDOC PROGRESS REPORT ---
Subjective Progress Note for:: 02/28/20 Reason For Visit: BLUNT CHEST TRAUMA, RIGHT PNEUMOTHORAX, RIGHT RIB Physical Exam Vital Signs: Temp Pulse Resp BP Pulse Ox 97.8 F 90 16 129/87 H 97 02/28/20 15:36 02/28/20 15:36 02/28/20 15:36 02/28/20 15:36 02/28/20 15:36 Intake & Output 02/27/20 02/28/20 02/29/20 06:59 06:59 06:59 Intake Total 300 650 240 Output Total 48 11 Balance 300 602 229 Weight 58.967 kg 64.8 kg General appearance: PRESENT: no acute distress, cooperative Head exam: PRESENT: atraumatic, normocephalic Eye exam: PRESENT: EOMI, PERRLA. ABSENT: scleral icterus Mouth exam: PRESENT: moist, neck supple Neck exam: ABSENT: meningismus, tenderness, thyromegaly, tracheal deviation Respiratory exam: PRESENT: unlabored, other - right sided chest tube in-place. + air leak. on suction.. ABSENT: tachypnea, wheezes Cardiovascular exam: ABSENT: tachycardia GI/Abdominal exam: PRESENT: soft. ABSENT: distended, firm, tenderness Rectal exam: PRESENT: deferred Extremities exam: ABSENT: clubbing Musculoskeletal exam: ABSENT: deformity Neurological exam: PRESENT: alert, awake, oriented to person, oriented to place, oriented to time, oriented to situation, CN II-XII grossly intact Psychiatric exam: ABSENT: agitated, anxious, depressed Focused psych exam: ABSENT: delusional Skin exam: ABSENT: cyanosis, erythema, jaundice Results Laboratory Results: 02/26/20 23:18 02/26/20 23:18 Impressions: Ribs w/Chest X-Ray 02/26/20 19:43 IMPRESSION: 1. Small right-sided pneumothorax which is borderline in size for chest tube placement. This likely does not require chest tube at this time unless the patient is very symptomatic from this. Would recommend at least close clinical follow-up and short-term follow-up imaging. 2. Acute right posterior 10th rib fracture. Chest CT 02/26/20 22:31 IMPRESSION: Right pneumothorax, a known finding. No significant pleural fluid. Dependent airspace disease right lung base presumed atelectasis. Fracture right posterior ninth and 10th ribs. Chest X-Ray 02/28/20 07:45 IMPRESSION: No interval change. Small right apical pneumothorax. Large-bore right-sided chest tube remains in place. Assessment & Plan - Diagnosis (1) Traumatic fracture of ribs of right side with pneumothorax Is this a current diagnosis for this admission?: Yes - Time Anticipated Discharge Disposition: Home, Self Care Anticipated Discharge Timeframe: Unknown - Plan Summary Plan Summary: 39-year-old female status post fall. She has posterior rib fractures and a pneumothorax. Today, she had an air leak on physical exam. Maintain chest tube to suction. Repeat chest x-ray tomorrow. If airleak persists, she may require a second, small bore, anterior chest tube. Aggressive pulmonary toilet. Pain control. DVT prophylaxis.
[2020-02-28] MEDS: FAMOTIDINE 20 MG TABLET PO SCH (21:29)
[2020-02-28] MEDS: ZOLPIDEM TARTRATE 5 MG TABLET PO SCH (21:30)
[2020-02-29] MEDS: GABAPENTIN 400 MG CAPSULE PO SCH ×3 (05:25→21:42)
[2020-02-29] MEDS: OXYCODONE-ACETAMINOPHEN 5-325 MG TABLET PO PRN ×4 (07:32→22:10)
[2020-02-29] MEDS: KETOROLAC TROMETHAMINE INJ/PF 30 MG/1 ML SDV IV PRN ×4 (08:47→22:15)
[2020-02-29] MEDS: DOCUSATE SODIUM 100 MG CAPSULE PO SCH ×2 (09:22→17:18)
[2020-02-29] MEDS: FAMOTIDINE 20 MG TABLET PO SCH ×2 (09:35→21:42)
[2020-02-29] MEDS: ENOXAPARIN SODIUM INJ 40 MG/0.4 ML DISP.SYRIN SUBCUT SCH (09:36)
[2020-02-29] MEDS: NICOTINE 21 MG/24 HR PATCH.TD24 TD SCH (09:36)
--- NOTE | 2020-02-29 09:55 | RADIOLOGY REPORT (SQ) ---
EXAM DESCRIPTION: CHEST SINGLE VIEW IMAGES COMPLETED DATE/TIME: 02/29/2020 9:21 am REASON FOR STUDY: pneumo COMPARISON: Previous day. NUMBER OF VIEWS: One view. TECHNIQUE: Single frontal radiographic image of the chest acquired. LIMITATIONS: None. FINDINGS: LUNGS AND PLEURA: Less than 10% right apical pneumothorax not significantly changed. MEDIASTINUM AND HEART: Stable heart size and mediastinal structures. SUPPORT DEVICES: Appropriate location without change. BONY STRUCTURES: No acute findings. HARDWARE: None. OTHER: No other significant finding. IMPRESSION: No significant change. Reading location - IP/workstation name: [email or web address]
--- NOTE | 2020-02-29 12:21 | PDOC PROGRESS REPORT ---
Subjective Progress Note for:: 02/29/20 Subjective:: no complaints. Reason For Visit: BLUNT CHEST TRAUMA, RIGHT PNEUMOTHORAX, RIGHT RIB Physical Exam Vital Signs: Temp Pulse Resp BP Pulse Ox 98.4 F 90 16 119/70 100 02/29/20 11:39 02/29/20 11:39 02/29/20 11:39 02/29/20 11:39 02/29/20 11:39 Intake & Output 02/28/20 02/29/20 03/01/20 06:59 06:59 06:59 Intake Total 650 240 Output Total 48 11 0 Balance 602 229 0 Weight 64.8 kg 65 kg General appearance: PRESENT: no acute distress Head exam: PRESENT: normocephalic Eye exam: PRESENT: EOMI Ear exam: PRESENT: normal external ear exam Mouth exam: PRESENT: moist Neck exam: PRESENT: full ROM Respiratory exam: PRESENT: clear to auscultation vicky Cardiovascular exam: PRESENT: RRR Pulses: PRESENT: normal radial pulses, normal femoral pulses Breast: PRESENT: Normal GI/Abdominal exam: PRESENT: soft Rectal exam: PRESENT: deferred Extremities exam: PRESENT: full ROM Musculoskeletal exam: PRESENT: full ROM Neurological exam: PRESENT: alert, awake, oriented to person, oriented to place Psychiatric exam: PRESENT: appropriate affect Skin exam: PRESENT: dry Results Laboratory Results: 02/26/20 23:18 02/26/20 23:18 Impressions: Ribs w/Chest X-Ray 02/26/20 19:43 IMPRESSION: 1. Small right-sided pneumothorax which is borderline in size for chest tube placement. This likely does not require chest tube at this time unless the patient is very symptomatic from this. Would recommend at least close clinical follow-up and short-term follow-up imaging. 2. Acute right posterior 10th rib fracture. Chest CT 02/26/20 22:31 IMPRESSION: Right pneumothorax, a known finding. No significant pleural fluid. Dependent airspace disease right lung base presumed atelectasis. Fracture right posterior ninth and 10th ribs. Assessment & Plan - Time Anticipated Discharge Disposition: Home, Self Care Anticipated Discharge Timeframe: unk - Plan Summary Plan Summary: pt with traumatic ptx was on suction without leak this am chest tube to water seal and cxr in 3 hrs demonstrated increased ptx will place back on suction repeat cxr later today.
--- NOTE | 2020-02-29 13:04 | RADIOLOGY REPORT (SQ) ---
EXAM DESCRIPTION: CHEST SINGLE VIEW IMAGES COMPLETED DATE/TIME: 02/29/2020 12:08 pm REASON FOR STUDY: Pneumonia COMPARISON: 02/29/2020 EXAM PARAMETERS: NUMBER OF VIEWS: One view. TECHNIQUE: Single frontal radiographic view of the chest acquired. RADIATION DOSE: NA LIMITATIONS: None. FINDINGS: LUNGS AND PLEURA: 2 cm thick apical pneumothorax on the right. MEDIASTINUM AND HILAR STRUCTURES: No masses. Contour normal. HEART AND VASCULAR STRUCTURES: Heart normal in size. Normal vasculature. BONES: No acute findings. HARDWARE: Thoracotomy tube on the right. OTHER: No other significant finding. IMPRESSION: Apical pneumothorax on the right despite the presence of the thoracotomy tube. This keyanna ears slightly increased since the earlier study. TECHNICAL DOCUMENTATION: JOB ID: [id number] 2010 [employer]- All Rights Reserved Reading location - IP/workstation name: [email or web address]
[2020-02-29] MEDS: CLONAZEPAM 1 MG TABLET PO PRN (17:18)
[2020-02-29] MEDS: ZOLPIDEM TARTRATE 5 MG TABLET PO SCH (21:42)
[2020-03-01] MEDS: GABAPENTIN 400 MG CAPSULE PO SCH ×3 (05:09→21:05)
[2020-03-01] MEDS: OXYCODONE-ACETAMINOPHEN 5-325 MG TABLET PO PRN ×4 (05:14→23:54)
[2020-03-01] MEDS: KETOROLAC TROMETHAMINE INJ/PF 30 MG/1 ML SDV IV PRN ×4 (05:15→23:53)
--- NOTE | 2020-03-01 07:51 | RADIOLOGY REPORT (SQ) ---
EXAM DESCRIPTION: XR CHEST 1 VIEW COMPLETED DATE/TME: 03/01/2020 00:00 CLINICAL HISTORY: PNEUMOTHORAX COMPARISON: 02/29/2020 FINDINGS: Single frontal view of the chest. Tubes and lines: Right chest tube in place. Cardiomediastinal silhouette: Stable Lungs: Trace right apical pneumothorax significantly decreased in size. No large effusion or focal airspace consolidation. Bones: Stable. Upper abdomen: Stable. IMPRESSION: 1. Trace right apical pneumothorax significantly decreased in size from the comparison study. Right chest tube in place.
[2020-03-01] MEDS: FAMOTIDINE 20 MG TABLET PO SCH ×2 (10:22→21:05)
[2020-03-01] MEDS: ENOXAPARIN SODIUM INJ 40 MG/0.4 ML DISP.SYRIN SUBCUT SCH (10:22)
[2020-03-01] MEDS: DOCUSATE SODIUM 100 MG CAPSULE PO SCH ×3 (10:22→18:02)
[2020-03-01] MEDS: CLONAZEPAM 1 MG TABLET PO PRN ×2 (10:22→18:07)
[2020-03-01] MEDS: NICOTINE 21 MG/24 HR PATCH.TD24 TD SCH (10:23)
--- NOTE | 2020-03-01 16:33 | PDOC PROGRESS REPORT ---
Subjective Progress Note for:: 03/01/20 Subjective:: 39-year-old female status post fall. She was admitted for rib fractures, and pneumothorax. Today, she reports minimal chest pain, but denies any shortness of breath. Her pain medication is working well. She also denies abdominal pain, nausea, vomiting, dizziness, orthostasis, headache, palpitations, blurry vision. Reason For Visit: BLUNT CHEST TRAUMA, RIGHT PNEUMOTHORAX, RIGHT RIB Physical Exam Vital Signs: Temp Pulse Resp BP Pulse Ox 97.6 F 80 16 131/70 H 99 03/01/20 11:08 03/01/20 11:08 03/01/20 11:08 03/01/20 11:08 03/01/20 11:08 Intake & Output 02/29/20 03/01/20 03/02/20 06:59 06:59 06:59 Intake Total 240 682 Output Total 11 15 Balance 229 667 Weight 65 kg 65.5 kg Exam: General appearance: PRESENT: no acute distress, cooperative Head exam: PRESENT: atraumatic, normocephalic Eye exam: PRESENT: EOMI, PERRLA. ABSENT: scleral icterus Mouth exam: PRESENT: moist, neck supple Neck exam: ABSENT: meningismus, tenderness, thyromegaly, tracheal deviation Respiratory exam: PRESENT: unlabored, other - right sided chest tube in-place. No air leak. on suction.. ABSENT: tachypnea, wheezes Cardiovascular exam: ABSENT: tachycardia GI/Abdominal exam: PRESENT: soft. ABSENT: distended, firm, tenderness Rectal exam: PRESENT: deferred Extremities exam: ABSENT: clubbing Musculoskeletal exam: ABSENT: deformity Neurological exam: PRESENT: alert, awake, oriented to person, oriented to place, oriented to time, oriented to situation, CN II-XII grossly intact Psychiatric exam: ABSENT: agitated, anxious, depressed Focused psych exam: ABSENT: delusional Skin exam: ABSENT: cyanosis, erythema, jaundice Results Laboratory Results: 02/26/20 23:18 02/26/20 23:18 Impressions: Ribs w/Chest X-Ray 02/26/20 19:43 IMPRESSION: 1. Small right-sided pneumothorax which is borderline in size for chest tube placement. This likely does not require chest tube at this time unless the patient is very symptomatic from this. Would recommend at least close clinical follow-up and short-term follow-up imaging. 2. Acute right posterior 10th rib fracture. Chest CT 02/26/20 22:31 IMPRESSION: Right pneumothorax, a known finding. No significant pleural fluid. Dependent airspace disease right lung base presumed atelectasis. Fracture right posterior ninth and 10th ribs. Assessment & Plan - Diagnosis (1) Traumatic fracture of ribs of right side with pneumothorax Is this a current diagnosis for this admission?: Yes - Time Anticipated Discharge Disposition: Home, Self Care Anticipated Discharge Timeframe: unknown - Plan Summary Plan Summary: 39-year-old female status post fall. She has posterior rib fractures and a pneumothorax. Today, her air leak has resolved, but she continues to exhibit a small PTX on CXR. I will remove her CT today, as there is no appreciable air leak. If her PTX reaccumulates, she will require re-insertion of a chest tube, this time in the apical position. Repeat chest x-ray at 1600 today. Aggressive pulmonary toilet. Pain control. DVT prophylaxis.
--- NOTE | 2020-03-01 16:35 | RADIOLOGY REPORT (SQ) ---
EXAM DESCRIPTION: CHEST SINGLE VIEW IMAGES COMPLETED DATE/TIME: 03/01/2020 4:27 pm REASON FOR STUDY: eval for PTX COMPARISON: 03/01/2020 EXAM PARAMETERS: NUMBER OF VIEWS: One view. TECHNIQUE: Single frontal radiographic view of the chest acquired. RADIATION DOSE: NA LIMITATIONS: None. FINDINGS: LUNGS AND PLEURA: Right-sided chest tube is been removed. There is a small right apical p neumothorax. This measures no more than 8.4 mm in greatest diameter. There is subcutaneous emphysem a. No consolidation. MEDIASTINUM AND HILAR STRUCTURES: No masses. Contour normal. HEART AND VASCULAR STRUCTURES: Heart normal in size. Normal vasculature. BONES: No acute findings. HARDWARE: None in the chest. OTHER: No other significant finding. IMPRESSION: Small right apical pneumothorax following chest tube removal. TECHNICAL DOCUMENTATION: JOB ID: [id number] 2010 [employer]- All Rights Reserved Reading location - IP/workstation name: [email or web address]
--- NOTE | 2020-03-01 19:32 | RADIOLOGY REPORT (SQ) ---
EXAM DESCRIPTION: CHEST SINGLE VIEW IMAGES COMPLETED DATE/TIME: 03/01/2020 7:21 pm REASON FOR STUDY: eval for worsening PTX COMPARISON: 03/01/2020 EXAM PARAMETERS: NUMBER OF VIEWS: One view. TECHNIQUE: Single frontal radiographic view of the chest acquired. RADIATION DOSE: NA LIMITATIONS: None. FINDINGS: LUNGS AND PLEURA: Apical pneumothorax shows no significant interval change. MEDIASTINUM AND HILAR STRUCTURES: No masses. Contour normal. HEART AND VASCULAR STRUCTURES: Heart normal in size. Normal vasculature. BONES: No acute findings. HARDWARE: None in the chest. OTHER: Subcutaneous emphysema seen on the right extending up into the neck. IMPRESSION: Stable right pneumothorax. TECHNICAL DOCUMENTATION: JOB ID: [id number] 2010 [employer]- All Rights Reserved Reading location - IP/workstation name: [email or web address]
[2020-03-01] MEDS: ZOLPIDEM TARTRATE 5 MG TABLET PO SCH (21:05)
--- NOTE | 2020-03-02 00:47 | RADIOLOGY REPORT (SQ) ---
EXAM DESCRIPTION: X-ray, single view of the chest CLINICAL HISTORY: 39 years Female, increased pain in chest and neck known right-sided pneumothorax. COMPARISON: Radiograph of the chest obtained March 01, 2020 FINDINGS: Lungs: Small right-sided pneumothorax is again identified which extends 13 mm from the lung apex and 4 mm off the lateral chest wall. The appearance is unchanged. There is subcutaneous emphysema along the right chest wall extending into the right neck. The lungs are clear. No pleural effusion. Mediastinum: Cardiac and mediastinal silhouette are normal. Bones: Osseous structures are normal. IMPRESSION: Stable, small right apical pneumothorax.
[2020-03-02 05:47] VITALS: BP 104/73
[2020-03-02] MEDS: GABAPENTIN 400 MG CAPSULE PO SCH (06:03)
[2020-03-02] MEDS: OXYCODONE-ACETAMINOPHEN 5-325 MG TABLET PO PRN (06:03)
[2020-03-02] MEDS: KETOROLAC TROMETHAMINE INJ/PF 30 MG/1 ML SDV IV PRN (06:04)
--- NOTE | 2020-03-02 08:22 | RADIOLOGY REPORT (SQ) ---
EXAM DESCRIPTION: CHEST SINGLE VIEW IMAGES COMPLETED DATE/TIME: 03/02/2020 7:51 am REASON FOR STUDY: eval PTX COMPARISON: Earlier same day. NUMBER OF VIEWS: One view. TECHNIQUE: Single frontal radiographic image of the chest acquired. LIMITATIONS: None. FINDINGS: LUNGS AND PLEURA: Estimated 10% right apical pneumothorax not significantly changed. MEDIASTINUM AND HEART: Stable heart size and mediastinal structures. BONY STRUCTURES: No acute findings. HARDWARE: None. OTHER: No other significant finding. IMPRESSION: No significant change. TECHNICAL DOCUMENTATION: JOB ID: [id number] Reading location - IP/workstation name: [email or web address]
--- NOTE | 2020-03-02 08:54 | PDOC DISCHARGE SUMMARY ---
General - Admit/Disc Date/PCP Admission Date/Primary Care Provider: 02/27/20 01:28 Discharge Date: 03/02/20 - Discharge Diagnosis Final Diagnosis: right sided rib fractures, pneumothorax - Assessment Summary: pt admitted on 02/26 after sustaining rt sided rib fractures with sob. cxr revealed ptx on the right pt treated iwth chesttube placement with resolution after 2 or 3 attempts, lung remained expanded on water seal eventually chest tube remvoed and pt monitored for additional 36hrs cxr tthis am showed small apical ptx without changes over 36hrs pt can be discharged home today. - Additional Information Resuscitation Status: Full Code Discharge Diet: As Tolerated Discharge Activity: Balance Activity w/Rest, Energy Conservation, No Lifting Over 10 Pounds, No Lifting/Push/Pulling Prescriptions: Oxycodone HCl/Acetaminophen [Percocet 10-325 Mg Tablet] 1 each PO Q6HP PRN #10 tablet PRN Reason: Home Medications: Clonazepam [Klonopin 1 mg Tablet] 1 mg PO Q8HP PRN 12/08/18 Gabapentin [Neurontin 400 mg Capsule] 800 mg PO Q8 12/08/18 Zolpidem Tartrate [Ambien 5 mg Tablet] 10 mg PO QHS 12/08/18 Oxycodone HCl/Acetaminophen [Percocet 10-325 Mg Tablet] 1 each PO Q6HP PRN #10 tablet 03/02/20 History of Present Illiness History of Present Illness: GOMEZ MCKEON is a 39 year old female Physical Exam Vital Signs: Temp Pulse Resp BP Pulse Ox 97.9 F 76 18 104/73 100 03/02/20 08:28 03/02/20 05:45 03/02/20 05:45 03/02/20 05:45 03/02/20 05:45 Intake & Output 03/01/20 03/02/20 03/03/20 06:59 06:59 05:59 Intake Total 682 1920 Output Total 15 Balance 667 1920 Weight 65.5 kg 65.8 kg Results Laboratory Results: WBC 14.3 10^3/uL (4.0-10.5) H 02/26/20 23:18 RBC 4.17 10^6/uL (3.72-5.28) 02/26/20 23:18 Hgb 14.4 g/dL (12.0-15.5) 02/26/20 23:18 Hct 40.5 % (36.0-47.0) 02/26/20 23:18 MCV 97 fl (80-97) 02/26/20 23:18 MCH 34.6 pg (27.0-33.4) H 02/26/20 23:18 MCHC 35.5 g/dL (32.0-36.0) 02/26/20 23:18 RDW 12.4 % (11.5-14.0) 02/26/20 23:18 Plt Count 413 10^3/uL (150-450) 02/26/20 23:18 Lymph % (Auto) 26.7 % (13-45) 02/26/20 23:18 [place] % (Auto) 5.8 % (3-13) 02/26/20 23:18 Eos % (Auto) 1.4 % (0-6) 02/26/20 23:18 Baso % (Auto) 0.5 % (0-2) 02/26/20 23:18 Absolute Neuts (auto) 9.4 10^3/uL (1.7-8.2) H 02/26/20 23:18 Absolute Lymphs (auto) 3.8 10^3/uL (0.5-4.7) 02/26/20 23:18 Absolute Monos (auto) 0.8 10^3/uL (0.1-1.4) 02/26/20 23:18 Absolute Eos (auto) 0.2 10^3/uL (0.0-0.6) 02/26/20 23:18 Absolute Basos (auto) 0.1 10^3/uL (0.0-0.2) 02/26/20 23:18 Seg Neutrophils % 65.6 % (42-78) 02/26/20 23:18 Sodium 138.1 mmol/L (137-145) 02/26/20 23:18 Potassium 4.3 mmol/L (3.6-5.0) 02/26/20 23:18 Chloride 107 mmol/L (98-107) 02/26/20 23:18 Carbon Dioxide 21 mmol/L (22-30) L 02/26/20 23:18 Anion Gap 10 (5-19) 02/26/20 23:18 BUN 5 mg/dL (7-20) L 02/26/20 23:18 Creatinine 0.68 mg/dL (0.52-1.25) 02/26/20 23:18 Est GFR ( Amer) > 60 (>60) 02/26/20 23:18 Est GFR (MDRD) Non-Af > 60 (>60) 02/26/20 23:18 Glucose 87 mg/dL (75-110) 02/26/20 23:18 Calcium 9.9 mg/dL (8.4-10.2) 02/26/20 23:18 Total Bilirubin 0.6 mg/dL (0.2-1.3) 02/26/20 23:18 Direct Bilirubin 0.2 mg/dL (0.0-0.4) 02/26/20 23:18 Neonat Total Bilirubin Not Reportable 02/26/20 23:18 Neonat Direct Bilirubin Not Reportable 02/26/20 23:18 Neonat Indirect Bili Not Reportable 02/26/20 23:18 AST 28 U/L (14-36) 02/26/20 23:18 ALT 13 U/L (<35) 02/26/20 23:18 Alkaline Phosphatase 89 U/L (38-126) 02/26/20 23:18 Total Protein 7.9 g/dL (6.3-8.2) 02/26/20 23:18 Albumin 4.5 g/dL (3.5-5.0) 02/26/20 23:18 SARS-CoV-2 (PCR) NEGATIVE (NEGATIVE) 02/27/20 07:16 Impressions: Ribs w/Chest X-Ray 02/26/20 19:43 IMPRESSION: 1. Small right-sided pneumothorax which is borderline in size for chest tube placement. This likely does not require chest tube at this time unless the patient is very symptomatic from this. Would recommend at least close clinical follow-up and short-term follow-up imaging. 2. Acute right posterior 10th rib fracture. Chest CT 02/26/20 22:31 IMPRESSION: Right pneumothorax, a known finding. No significant pleural fluid. Dependent airspace disease right lung base presumed atelectasis. Fracture right posterior ninth and 10th ribs. Chest X-Ray 02/27/20 00:00 IMPRESSION: Interval placement of chest drain. Pneumothorax is similar to prior. Chest X-Ray 02/27/20 09:54 IMPRESSION: Trace right apical pneumothorax. Right large bore chest tube in place. Chest X-Ray 02/28/20 07:45 IMPRESSION: No interval change. Small right apical pneumothorax. Large-bore right-sided chest tube remains in place. Chest X-Ray 02/29/20 00:00 IMPRESSION: No significant change. Chest X-Ray 02/29/20 12:00 IMPRESSION: Apical pneumothorax on the right despite the presence of the thoracotomy tube. This appears slightly increased since the earlier study. Chest X-Ray 03/01/20 00:00 IMPRESSION: 1. Trace right apical pneumothorax significantly decreased in size from the comparison study. Right chest tube in place. Chest X-Ray 03/01/20 16:00 IMPRESSION: Small right apical pneumothorax following chest tube removal. Chest X-Ray 03/01/20 19:00 IMPRESSION: Stable right pneumothorax. Chest X-Ray 03/02/20 00:00 IMPRESSION: Stable, small right apical pneumothorax. Chest X-Ray 03/02/20 06:00 IMPRESSION: No significant change.
[2020-03-02] MEDS: DOCUSATE SODIUM 100 MG CAPSULE PO SCH (09:50)
[2020-03-02] MEDS: FAMOTIDINE 20 MG TABLET PO SCH (09:51)
[2020-03-02] MEDS: NICOTINE 21 MG/24 HR PATCH.TD24 TD SCH (09:51)
[2020-03-02] MEDS: ENOXAPARIN SODIUM INJ 40 MG/0.4 ML DISP.SYRIN SUBCUT SCH (09:51)
== END 2020-03-02 10:54 | disposition home or self-care (01) ==
LOC: ER 18:56 → EH 02-27 01:28 → INTOOBSV 02-27 01:28 → 4S 02-27 03:01
DX: S22.41XA Multiple fractures of ribs, right side, initial encounter for closed fracture (principal); S27.0XXA Traumatic pneumothorax, initial encounter; W10.9XXA Fall (on) (from) unspecified stairs and steps, initial encounter; F17.210 Nicotine dependence, cigarettes, uncomplicated; F31.9 Bipolar disorder, unspecified; F41.9 Anxiety disorder, unspecified; F41.0 Panic disorder [episodic paroxysmal anxiety]; Z03.818 Encounter for observation for suspected exposure to other biological agents ruled out; M19.90 Unspecified osteoarthritis, unspecified site; Z79.899 Other long term (current) drug therapy; Z98.1 Arthrodesis status
CPT/HCPCS: 99406; 32551 ×2; 99285; 90471; 96374; 96375 ×2; 36415; 85025; 87635; 80053; 71045 ×5; 71101; 71260; 94799; 00520; G0378 ×5; J2250; J3010; J3490; J1885 ×6; J2270 ×2; J1650 ×2; J2405; J2704; C9803; 90715

== ENCOUNTER 2020-03-06 10:25 | Inpatient (IN) | payer OTHER ==
--- NOTE | 2020-03-06 11:01 | ER Document Report ---
ED Respiratory Problem - General Chief Complaint: Shortness Of Breath Stated Complaint: RIB PAIN, DIFFICULTY BREATHING, BACK PAIN Time Seen by Provider: 03/06/20 10:52 Mode of Arrival: Ambulatory Information source: Patient Notes: 39-year-old female presented to ED with right rib pain chest pain and pneumothorax. She was sent over by the urgent care and told that she needed to be taken to the OR for pneumothorax. Dr. Fuller has been called he stated to put her on 100% O2 and he would be down to do all of the orders do not do a chest tube he will be right here to admit. Patient is alert oriented answering questions appropriately states she is in a lot of pain on the right side. TRAVEL OUTSIDE OF THE [place] IN LAST 30 DAYS: No - HPI Patient complains to provider of: Short of breath, Other Onset: Other - Was sent here by the urgent care was just discharged with a pneumothorax Duration: Worse/persistent Quality of pain: Sharp Severity: Severe Pain Level: 5 Context: Smoker, Other - Pneumothorax Short of Breath: Moderate Chest pain/discomfort: Pain, Right, Worse with deep breaths Sputum amount: None Associated symptoms: Chest pain/discomfort, Other - Chest pain no pneumothorax Similar symptoms previously: Yes Recently seen / treated by doctor: Yes - Related Data Allergies/Adverse Reactions: No Known Allergies Allergy (Verified 03/06/20 10:54) Past Medical History - General Information source: Patient - Social History Smoking Status: Current Every Day Smoker - Daily Smoking Education Provided: Yes Frequency of alcohol use: Social Drug Abuse: None Family History: None, Reviewed & Not Pertinent Patient has suicidal ideation: No Patient has homicidal ideation: No - Past Medical History Cardiac Medical History: Reports: None Pulmonary Medical History: Reports: Other - Pneumothorax EENT Medical History: Reports: None Neurological Medical History: Reports: None Endocrine Medical History: Reports: None Renal/ Medical History: Reports: Hx Kidney Stones Malignancy Medical History: Reports: None GI Medical History: Reports: None Musculoskeletal Medical History: Reports Hx Arthritis, Reports Hx Musculoskeletal Deformity, Reports Hx Musculoskeletal Trauma Skin Medical History: Reports None Psychiatric Medical History: Reports: Hx Anxiety, Hx Bipolar Disorder, Hx Depression Traumatic Medical History: Reports: Hx Fractures Infectious Medical History: Reports: None Past Surgical History: Reports: Hx Breast Surgery - augmentation, Hx Hyster ectomy, Hx Orthopedic Surgery - L5S1 fusion - Immunizations Immunizations up to date: Yes Hx Diphtheria, Pertussis, Tetanus Vaccination: Yes Review of Systems - Review of Systems Constitutional: No symptoms reported EENT: No symptoms reported Cardiovascular: Chest pain - Right chest and rib pain Respiratory: Short of breath - Difficulty breathing pain worse on right Gastrointestinal: No symptoms reported Genitourinary: No symptoms reported Female Genitourinary: No symptoms reported Musculoskeletal: No symptoms reported Skin: No symptoms reported Hematologic/Lymphatic: No symptoms reported Neurological/Psychological: No symptoms reported -: Yes All other systems reviewed and negative Physical Exam - Vital signs Vitals: Temp Pulse Resp BP Pulse Ox 99.2 F 99 20 118/87 H 97 03/06/20 11:14 03/06/20 11:14 03/06/20 11:14 03/06/20 11:14 03/06/20 11:14 Interpretation: Normal - General General appearance: Appears well, Alert - HEENT Head: Normocephalic, Atraumatic Eyes: Normal Pupils: PERRL - Respiratory Respiratory status: Respiratory distress - Mild Chest status: Tender Breath sounds: Decreased air movement - Right Chest palpation: Normal - Cardiovascular Rhythm: Regular Heart sounds: Normal auscultation Murmur: No - Abdominal Inspection: Normal Distension: No distension Bowel sounds: Normal Tenderness: Nontender Organomegaly: No organomegaly - Back Back: Normal, Nontender - Extremities General upper extremity: Normal inspection, Nontender, Normal color, Normal ROM, Normal temperature General lower extremity: Normal inspection, Nontender, Normal color, Normal ROM, Normal temperature, Normal weight bearing. No: Mini's sign - Neurological Neuro grossly intact: Yes Cognition: Normal Orientation: AAOx4 Adrian Coma Scale Eye Opening: Spontaneous Adrian Coma Scale Verbal: Oriented Adrian Coma Scale Motor: Obeys Commands Patterson Coma Scale Total: 15 Speech: Normal Motor strength normal: LUE, RUE, LLE, RLE Sensory: Normal - Psychological Associated symptoms: Normal affect, Normal mood - Skin Skin Temperature: Warm Skin Moisture: Dry Skin Color: Normal Course - Re-evaluation Re-evalutation: 03/06/20 11:08 Dr. Fuller stated to admit to his services he would come down and right admission orders and take her to surgery for treatment for pneumothorax. - Vital Signs Vital signs: Temp Pulse Resp BP Pulse Ox 97.7 F 87 16 143/95 H 100 03/06/20 19:27 03/06/20 19:27 03/06/20 19:27 03/06/20 19:27 03/06/20 19:27 - Laboratory Result Diagrams: 03/06/20 11:07 03/06/20 11:07 Laboratory results interpreted by me: 03/06/20 03/06/20 11:07 11:07 WBC 14.3 H MCV 98 H MCH 34.6 H Plt Count 480 H Absolute Neuts (auto) 10.6 H Sodium 136.4 L Carbon Dioxide 20 L Discharge - Discharge Clinical Impression: Pneumothorax Qualifiers: Pneumothorax type: other pneumothorax Qualified Code(s): J93.83 - Other pneumothorax Disposition: ADMITTED INPATIENT Admitting Provider: Surgicalist Unit Admitted: OR
[2020-03-06] MEDS ORDERED: NORMAL SALINE 1000 ML 1,000 ML IV ONE (11:02)
[2020-03-06 11:47] LABS: ABSOLUTE BASOPHILS # (AUTO) 0.1 10^3/uL (0.0-0.2); ABSOLUTE EOSINOPHILS # (AUTO) 0.3 10^3/uL (0.0-0.6); ABSOLUTE LYMPHOCYTES (AUTO) 2.6 10^3/uL (0.5-4.7); ABSOLUTE MONOCYTES (AUTO) 0.8 10^3/uL (0.1-1.4); ABSOLUTE NEUT (AUTO) 10.6 10^3/uL (1.7-8.2); BASOPHILS % (AUTO) 0.5 % (0-2); EOSINOPHILS % (AUTO) 2.3 % (0-6); HEMATOCRIT 40.5 % (36.0-47.0); HEMOGLOBIN 14.3 g/dL (12.0-15.5); LYMPHOCYTES % (AUTO) 17.8 % (13-45); MEAN CORPUSCULAR HEMOGLOBIN 34.6 pg (27.0-33.4); MEAN CORPUSCULAR HGB CONC 35.2 g/dL (32.0-36.0); MEAN CORPUSCULAR VOLUME 98 fl (80-97); MONOCYTES % (AUTO) 5.4 % (3-13); PLATELET COUNT 480 10^3/uL (150-450); RED BLOOD COUNT 4.13 10^6/uL (3.72-5.28); RED CELL DISTRIBUTION WIDTH 12.3 % (11.5-14.0); TOTAL CELLS COUNTED % (AUTO) 100 %; WHITE BLOOD COUNT 14.3 10^3/uL (4.0-10.5)
[2020-03-06 12:07] LABS: ALBUMIN 4.4 g/dL (3.5-5.0); ALKALINE PHOSPHATASE 89 U/L (38-126); ANION GAP 9 (5-19); ASPARTATE AMINO TRANSFERASE 28 U/L (14-36); BILIRUBIN,DIRECT 0.1 mg/dL (0.0-0.4); BILIRUBIN,TOTAL 0.7 mg/dL (0.2-1.3); BLOOD UREA NITROGEN 11 mg/dL (7-20); CALCIUM 9.6 mg/dL (8.4-10.2); CARBON DIOXIDE 20 mmol/L (22-30); CHLORIDE 107 mmol/L (98-107); GLUCOSE 99 mg/dL (75-110); POTASSIUM 4.4 mmol/L (3.6-5.0); TOTAL PROTEIN 7.7 g/dL (6.3-8.2)
[2020-03-06 12:19] LABS: INTERNATIONAL RATION (INR) 0.96
[2020-03-06] MEDS ORDERED: DEXTROSE 40% GEL 15 GM TUBE PO PRN ×2 (14:01)
[2020-03-06] MEDS ORDERED: DEXTROSE 50%-WATER 25 GM/50 ML DISP.SYRIN IV PRN ×2 (14:01)
[2020-03-06] MEDS ORDERED: GLUCAGON,HUMAN RECOMB 1 MG INJ SUBCUT PRN (14:01)
[2020-03-06] MEDS ORDERED: MORPHINE SULFATE 10 MG/ML INJ IV ONE (14:01)
[2020-03-06] MEDS ORDERED: NICOTINE 21 MG/24 HR PATCH.TD24 TD ONE (14:02)
[2020-03-06] MEDS: DEXTROSE 5%-LACTATED RINGERS 1,000 ML IV PRN (14:23)
[2020-03-06] MEDS ORDERED: ONDANSETRON HCL INJ/PF 4 MG/2 ML SDV IV PRN (15:40)
--- NOTE | 2020-03-06 15:55 | PDOC H&P ---
History of Present Illness Admission Date/PCP: 03/06/20 11:23 Patient complains of: chest pain, shortness of breath History of Present Illness: GOMEZ MCKEON is a 39 year old female who was admitted approximately 2 weeks ago for a spontaneous pneumothorax. She is a heavy smoker. Chest tube was placed, and the pneumothorax appeared to resolve. She was discharged home. Today, she reports increasing amounts of chest pain and shortness of breath. Her pain is sharp and stabbing. It occurs in the right lateral/posterior chest wall. She reports it is 6 out of 10 in intensity. She was sent for portable chest x-ray, which showed reaccumulation of the pneumothorax on the right. The patient then was sent to the emergency department for evaluation and hospital admission. Currently she reports chest pain and mild shortness of breath. She denies headache, nausea, vomiting, feeling of impending doom, palpitations, abdominal pain, melena, hematochezia, hematemesis, dizziness, blurry vision, orthostasis, weakness, fatigue, malaise. Past Medical History Cardiac Medical History: Reports: None Pulmonary Medical History: Reports: Other - Pneumothorax EENT Medical History: Reports: None Neurological Medical History: Reports: None Endocrine Medical History: Reports: None Malignancy Medical History: Reports: None GI Medical History: Reports: None Musculoskeltal Medical History: Reports: Arthritis Skin Medical History: Reports: None Psychiatric Medical History: Reports: Bipolar Disorder, Depression Infectious Medical History: Reports: None Past Surgical History Past Surgical History: Reports: Hysterectomy, Orthopedic Surgery - L5S1 fusion Social History Smoking Status: Current Every Day Smoker - Daily Electronic Cigarette use?: No Frequency of Alcohol Use: Social Hx Recreational Drug Use: No Hx Prescription Drug Abuse: No Family History Family History: None, Reviewed & Not Pertinent Parental Family History Reviewed: Yes Children Family History Reviewed: Yes Sibling(s) Family History Reviewed.: Yes Medication/Allergy Home Medications: Clonazepam [Klonopin 1 mg Tablet] 1 mg PO Q8HP PRN 12/08/18 Zolpidem Tartrate [Ambien 5 mg Tablet] 10 mg PO QHS 12/08/18 Oxycodone HCl/Acetaminophen [Percocet 10-325 Mg Tablet] 1 each PO Q6HP PRN #10 tablet 03/02/20 Citalopram Hydrobromide [Celexa] 20 mg PO DAILY 03/06/20 Gabapentin [Neurontin] 800 mg PO Q8 03/06/20 Allergies/Adverse Reactions: No Known Allergies Allergy (Verified 03/06/20 10:54) Review of Systems Constitutional: ABSENT: anorexia, chills, fatigue, fever(s), headache(s), night sweats Eyes: ABSENT: visual disturbances Ears: ABSENT: hearing changes Nose, Mouth, and Throat: ABSENT: sore throat Cardiovascular: PRESENT: chest pain Respiratory: PRESENT: dyspnea - mild. ABSENT: cough Gastrointestinal: ABSENT: abdominal pain, bloating, hematemesis, hematochezia, melena, nausea, vomiting Genitourinary: ABSENT: dysuria Musculoskeletal: PRESENT: back pain - right back posterior chest Integumentary: ABSENT: wounds Neurological: ABSENT: confusion, convulsions, dizziness Psychiatric: PRESENT: anxiety Endocrine: ABSENT: cold intolerance, heat intolerance Hematologic/Lymphatic: ABSENT: easy bleeding, easy bruising Physical Exam Vital Signs: Temp Pulse Resp BP Pulse Ox 99.2 F 99 19 113/77 98 03/06/20 11:14 03/06/20 11:14 03/06/20 15:01 03/06/20 15:01 03/06/20 15:01 Intake & Output 03/05/20 03/06/20 03/07/20 06:59 06:59 06:59 Intake Total 1000 Balance 1000 Weight 63.8 kg General appearance: PRESENT: no acute distress, cooperative Head exam: PRESENT: atraumatic, normocephalic Eye exam: PRESENT: EOMI, PERRLA. ABSENT: scleral icterus Mouth exam: PRESENT: moist, neck supple Neck exam: ABSENT: meningismus, tenderness, thyromegaly Respiratory exam: PRESENT: unlabored. ABSENT: wheezes Cardiovascular exam: ABSENT: tachycardia GI/Abdominal exam: PRESENT: soft. ABSENT: distended, firm, guarding, tenderness Rectal exam: PRESENT: deferred Extremities exam: ABSENT: clubbing Musculoskeletal exam: ABSENT: deformity Neurological exam: PRESENT: alert, awake, oriented to person, oriented to place, oriented to time, oriented to situation Psychiatric exam: ABSENT: agitated, anxious, depressed Focused psych exam: ABSENT: delusional Skin exam: ABSENT: cyanosis, erythema, jaundice Results Laboratory Results: 03/06/20 11:07 03/06/20 11:07 03/06/20 03/06/2003/06/20 11:07 11:07 11:07 WBC 14.3 H RBC 4.13 Hgb 14.3 Hct 40.5 MCV 98 H MCH 34.6 H MCHC 35.2 RDW 12.3 Plt Count 480 H Seg Neutrophils % 74.0 Sodium 136.4 L Potassium 4.4 Chloride 107 Carbon Dioxide 20 L Anion Gap 9 BUN 11 Creatinine 0.72 Est GFR ( Amer) > 60 Glucose 99 Calcium 9.6 Total Bilirubin 0.7 AST 28 Alkaline Phosphatase 89 Total Protein 7.7 Albumin 4.4 Blood Type A2sub NEGATIVE Antibody Screen NEGATIVE Assessment & Plan - Diagnosis (1) Spontaneous pneumothorax Is this a current diagnosis for this admission?: Yes - Time Anticipated Discharge Disposition: Home, Self Care Anticipated Discharge Timeframe: unknown - Plan Summary Plan Summary: 39-year-old female with a recurrent, spontaneous pneumothorax on the right. P atient reports chest pain and mild shortness of breath. There is no obvious tension component at present. She is wearing 100% oxygen, at my request. The patient appears to be stable. I have discussed with her the treatment of a recurrent spontaneous pneumothorax. I have discussed both an operative approach, as well as a more conservative approach. The patient wishes to proceed with VATS and mechanical pleurodesis, to avoid the possibility of recurrence in the future. This is a reasonable course to take. Plan for VATS with pleurodesis tomorrow. Risk/benefits discussed, informed consent obtained, and all questions answered.
[2020-03-06] MEDS: FAMOTIDINE 20 MG TABLET PO SCH (17:17)
--- NOTE | 2020-03-06 19:03 | EKG REPORT ---
SEVERITY:- NORMAL ECG - SINUS RHYTHM : Confirmed by: Sudhir Escamilla MD 06-Mar-2020 19:02:40
[2020-03-06] MEDS: HYDROCODONE/ACETAMINOPHEN 10-325 MG TABLET PO PRN (19:06)
[2020-03-06] MEDS: KETOROLAC TROMETHAMINE INJ/PF 30 MG/1 ML SDV IV SCH (19:07)
[2020-03-06] MEDS: MORPHINE SULFATE 10 MG/ML INJ IV PRN (21:35)
[2020-03-07] MEDS ORDERED: ZOLPIDEM TARTRATE 5 MG TABLET PO ONE (02:00)
[2020-03-07] MEDS: HYDROCODONE/ACETAMINOPHEN 10-325 MG TABLET PO PRN (02:11)
[2020-03-07] MEDS: KETOROLAC TROMETHAMINE INJ/PF 30 MG/1 ML SDV IV SCH ×3 (02:11→17:18)
[2020-03-07] MEDS: DEXTROSE 5%-LACTATED RINGERS 1,000 ML IV PRN ×3 (02:37→21:56)
[2020-03-07] MEDS: GABAPENTIN 400 MG CAPSULE PO SCH ×4 (05:37→23:27)
[2020-03-07] MEDS: MORPHINE SULFATE 10 MG/ML INJ IV PRN ×4 (05:45→22:16)
[2020-03-07] MEDS ORDERED: INFLUENZA QUAD (6MOS+) 2020-21 VAC 0.5 ML SYR IM ONE (08:00)
--- NOTE | 2020-03-07 08:57 | RADIOLOGY REPORT (SQ) ---
EXAM DESCRIPTION: CHEST SINGLE VIEW IMAGES COMPLETED DATE/TIME: 03/07/2020 8:21 am REASON FOR STUDY: eval PTX COMPARISON: CT chest 02/26/2020 Chest films 02/29/2020 through 03/06/2020 EXAM PARAMETERS: NUMBER OF VIEWS: One view. TECHNIQUE: Single frontal radiographic view of the chest acquired. RADIATION DOSE: NA LIMITATIONS: None. FINDINGS: LUNGS AND PLEURA: Small right pneumothorax is present, about 10 to 15% throughout the righ t hemithorax. This is similar compared to 03/06/2020, increased compared to 03/02/2020. There is partial collapse of the right lower lobe abutting the right heart border. This is similar c ompared to 03/06/2020, new compared to 03/02/2020. Left hemithorax unremarkable. MEDIASTINUM AND HILAR STRUCTURES: No shift of midline structures. No mediastinal masses. HEART AND VASCULAR STRUCTURES: Heart normal in size. Normal vasculature. BONES: No acute findings. HARDWARE: None in the chest. OTHER: No other significant finding. IMPRESSION: Stable small right pneumothorax compared to 03/06/2020. Partial collapse of the right lower lobe. TECHNICAL DOCUMENTATION: JOB ID: [id number] 2010 [employer]- All Rights Reserved Reading location - IP/workstation name: [email or web address]
[2020-03-07] MEDS: FAMOTIDINE 20 MG TABLET PO SCH ×2 (09:15→17:18)
[2020-03-07] MEDS: CITALOPRAM HYDROBROMIDE 20 MG TABLET PO SCH (09:15)
[2020-03-07] MEDS ORDERED: ONDANSETRON HCL INJ/PF 4 MG/2 ML SDV ONE (10:36)
[2020-03-07] MEDS ORDERED: TALC 4 GM IPL PRN (12:43)
--- NOTE | 2020-03-07 12:49 | PDOC PROGRESS REPORT ---
Subjective Progress Note for:: 03/07/20 Subjective:: 39-year-old female with a recurrent right-sided spontaneous pneumothorax. She continues to report chest pain. No significant shortness of breath. She denies abdominal pain, nausea, vomiting, melena, hematochezia, hematemesis, dizziness, orthostasis. She does appear somewhat anxious today. Reason For Visit: RECURRENT SPONTANEOUS PTX Physical Exam Vital Signs: Temp Pulse Resp BP Pulse Ox 97.7 F 85 22 H 125/73 100 03/07/20 08:34 03/07/20 07:18 03/07/20 07:18 03/07/20 07:18 03/07/20 07:18 Intake & Output 03/06/20 03/07/20 03/08/20 06:59 06:59 06:59 Intake Total 2520 958 Balance 2520 958 Weight 63.8 kg General appearance: PRESENT: no acute distress. ABSENT: obese Head exam: PRESENT: atraumatic, normocephalic - Per Eye exam: PRESENT: EOMI, PERRLA. ABSENT: scleral icterus Mouth exam: PRESENT: moist, neck supple Neck exam: ABSENT: meningismus, tenderness, thyromegaly, tracheal deviation Respiratory exam: PRESENT: unlabored. ABSENT: tachypnea Cardiovascular exam: ABSENT: tachycardia GI/Abdominal exam: PRESENT: soft. ABSENT: distended, tenderness Rectal exam: PRESENT: deferred Extremities exam: ABSENT: clubbing Musculoskeletal exam: ABSENT: deformity Neurological exam: PRESENT: alert, awake, oriented to person, oriented to place, oriented to time, oriented to situation, CN II-XII grossly intact. ABSENT: motor sensory deficit Psychiatric exam: ABSENT: agitated, anxious, depressed Focused psych exam: ABSENT: delusional Skin exam: ABSENT: cyanosis, erythema, jaundice Results Laboratory Results: 03/06/20 11:07 03/06/20 11:07 03/06/20 11:07 Blood Type A2sub NEGATIVE Antibody Screen NEGATIVE Impressions: Chest X-Ray 03/07/20 06:00 IMPRESSION: Stable small right pneumothorax compared to 03/06/2020. Partial collapse of the right lower lobe. Assessment & Plan - Diagnosis (1) Spontaneous pneumothorax Is this a current diagnosis for this admission?: Yes - Time Anticipated Discharge Disposition: Home, Self Care Anticipated Discharge Timeframe: unknown - Plan Summary Plan Summary: 39-year-old female with a recurrent, spontaneous pneumothorax on the right. Patient reports chest pain and mild shortness of breath. There is no obvious tension component at present. The patient wishes to proceed with VATS and mechanical pleurodesis, to avoid the possibility of recurrence in the future. Plan for VATS with pleurodesis today. Risk/benefits discussed, informed consent obtained, and all questions answered.
[2020-03-07] MEDS: NICOTINE 21 MG/24 HR PATCH.TD24 TD SCH (13:40)
[2020-03-07] MEDS ORDERED: FENTANYL CITRATE INJ/PF 100 MCG/2 ML AMPUL ONE (15:13)
[2020-03-07] MEDS ORDERED: MIDAZOLAM 2 MG/2 ML INJ ONE (15:13)
[2020-03-07] MEDS ORDERED: HYDROMORPHONE HCL INJ/PF 2 MG/ML AMPULE ONE (15:14)
[2020-03-07] MEDS ORDERED: PROPOFOL INJ 200 MG/20 ML VIAL IV ONE (15:14)
[2020-03-07] MEDS ORDERED: BUPIVACAINE HCL 0.25 % INJ/PF (2.5 MG/1 ML) 30 ML VIAL ONE (17:32)
[2020-03-07] MEDS ORDERED: CEFAZOLIN INJ 1 GM VIAL ONE (18:00)
[2020-03-07] MEDS ORDERED: OXYCODONE HCL IR 5 MG TABLET PO PRN (19:19)
[2020-03-07] MEDS ORDERED: DIPHENHYDRAMINE HCL 50 MG/ML VIAL IV PRN (19:30)
[2020-03-07] MEDS ORDERED: MORPHINE SULFATE 10 MG/ML INJ IV PRN (19:30)
[2020-03-07] MEDS ORDERED: FENTANYL CITRATE INJ/PF 100 MCG/2 ML AMPUL IV PRN ×3 (19:30)
[2020-03-07] MEDS ORDERED: MEPERIDINE HCL/PF INJ 25 MG/1 ML DISP.SYRIN IV PRN (19:30)
[2020-03-07] MEDS ORDERED: OXYCODONE-ACETAMINOPHEN 5-325 MG TABLET PO PRN ×2 (19:30)
[2020-03-07] MEDS ORDERED: PROMETHAZINE HCL INJ 25 MG/1 ML VIAL IV PRN ×2 (19:30)
[2020-03-07] MEDS: MORPHINE SULFATE 10 MG/ML INJ ONE ×4 (19:35→19:55)
[2020-03-07] MEDS ORDERED: ALBUTEROL SULFATE 0.042% NEB (1.25 MG/3 ML) AMPUL NEB PRN (19:43)
[2020-03-07] MEDS: MEPERIDINE HCL/PF INJ 25 MG/1 ML DISP.SYRIN ONE ×2 (19:45→19:50)
[2020-03-07] MEDS: ACETAMINOPHEN 1,000 MG/100 ML RTUPB IV SCH (21:56)
[2020-03-07] MEDS: OXYCODONE HCL IR 5 MG TABLET PO PRN (23:27)
[2020-03-08] MEDS: ZOLPIDEM TARTRATE 5 MG TABLET PO SCH ×2 (04:49→21:58)
[2020-03-08] MEDS: ACETAMINOPHEN 1,000 MG/100 ML RTUPB IV SCH ×3 (05:18→21:58)
[2020-03-08] MEDS: KETOROLAC TROMETHAMINE INJ/PF 30 MG/1 ML SDV IV SCH ×3 (05:18→18:07)
[2020-03-08] MEDS: GABAPENTIN 400 MG CAPSULE PO SCH ×3 (05:19→21:58)
[2020-03-08] MEDS: OXYCODONE HCL IR 5 MG TABLET PO PRN ×4 (05:19→19:57)
[2020-03-08] MEDS: DOCUSATE SODIUM 100 MG CAPSULE PO SCH ×2 (09:54→18:07)
[2020-03-08] MEDS: NICOTINE 21 MG/24 HR PATCH.TD24 TD SCH (09:54)
[2020-03-08] MEDS: FAMOTIDINE 20 MG TABLET PO SCH ×2 (09:54→18:07)
[2020-03-08] MEDS: CITALOPRAM HYDROBROMIDE 20 MG TABLET PO SCH (09:54)
--- NOTE | 2020-03-08 10:20 | Operative Report ---
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 32 Fr anterior chest tube 2. 32 Fr Postrior chest tube. Procedure in detail: After informed consent was obtained from the patient, she was brought to the operating room and laid in the left lateral decubitus position. The area of the right chest was prepped and draped in a normal sterile fashion. An incision was created in the posterior axillary line. Dissection was carried down to the rib. The chest was then entered over top of the rib, and a 12 mm trocar was inserted. The 10 mm 30 degree scope was then inserted into the chest. The right lung was isolated by anesthesia, and was easily collapsed. There was a small amount of adhesions identified in the right upper lobe. There is no significant bleb disease, although there were small blebs in the apex. Another 12 mm trocar was placed through the previous chest tube site in the anterior axillary line. A 5 mm trocar was placed under direct thorascopic guidance posteriorly, inferior to the scapula. Next, attention was turned to takedown of the previous apical adhesions. The adhesions were taken down sharply. This was done in order to adequately examine the entire thoracic cavity. The thoracic cavity was then examined from the diaphragm to the apex, anteriorly and posteriorly. There was no significant laceration to the lung. As stated earlier, there were several small blebs in the apex, however resection of these blebs was not felt to be necessary or beneficial. After the inspection was completed, pleurodesis with talc was performed. 4 g of talc was used. Once this was finished, 32 Wolof chest tubes were placed through the 12 mm trocar sites. They were directed anteriorly and posteriorly. They were sutured into place using 0 silk suture. The lung was reinflated under direct vision. It appeared to inflate very well. The 5 mm trocar site was removed after the lung was reinflated. After the 5 mm trocar was removed, the skin was closed using 4- 0 Vicryl Rapide suture in subcuticular fashion. Dressings were then placed, the chest tubes were placed to suction, and the procedure was concluded. All sponge, instrument, and needle counts were correct x2. Condition: Stable.
--- NOTE | 2020-03-08 10:21 | PDOC PROGRESS REPORT ---
Subjective Progress Note for:: 03/08/20 Reason For Visit: RECURRENT SPONTANEOUS PTX Physical Exam Vital Signs: Temp Pulse Resp BP Pulse Ox 98.1 F 95 18 123/67 100 03/08/20 07:24 03/08/20 08:52 03/08/20 08:52 03/08/20 07:24 03/08/20 08:52 Pulse Oximeter Continuous Start: 03/07/20 19:42 Freq: RTQ4 Status: Active Protocol: Document 03/08/20 08:52 LEDY (Rec: 03/08/20 08:54 [email or web address] [email or web address]) Pulse Oximetry Assessment Oxygen Saturation (92-100) 100 Oxygen Flow Rate (L/min) 2 Oxygen Delivery Method Nasal Cannula Fraction of Inspired Oxygen (FIO2) 28 Equipment Usage Equipment in Use Continuous SpO2 Machine # 7 Intake & Output 03/07/20 03/08/20 03/09/20 06:59 06:59 06:59 Intake Total 2520 3638 Output Total 160 Balance 2520 3478 Weight 63.8 kg 63.8 kg Results Laboratory Results: 03/06/20 11:07 03/06/20 11:07 Impressions: Chest X-Ray 03/07/20 06:00 IMPRESSION: Stable small right pneumothorax compared to 03/06/2020. Partial collapse of the right lower lobe. Assessment & Plan - Diagnosis (1) Spontaneous pneumothorax Is this a current diagnosis for this admission?: Yes - Time Anticipated Discharge Disposition: Home, Self Care Anticipated Discharge Timeframe: unknown - Plan Summary Plan Summary: 39-year-old female with a recurrent spontaneous right-sided pneumothorax. She is status post VATS with pleurodesis yesterday. After surgery, she had a small air leak evident. Today there is no apparent air leak. Chest x-ray tomorrow to visualize the right lung field. Continue with chest tubes to suction today. Pain control. Out of bed. Aggressive pulmonary toilet.
[2020-03-08] MEDS: MORPHINE SULFATE 10 MG/ML INJ IV PRN ×3 (10:48→20:20)
[2020-03-08] MEDS: DEXTROSE 5%-LACTATED RINGERS 1,000 ML IV PRN (22:45)
[2020-03-09] MEDS: OXYCODONE HCL IR 5 MG TABLET PO PRN ×4 (00:40→17:47)
[2020-03-09] MEDS: KETOROLAC TROMETHAMINE INJ/PF 30 MG/1 ML SDV IV SCH ×3 (02:15→17:36)
[2020-03-09] MEDS: MORPHINE SULFATE 10 MG/ML INJ IV PRN ×4 (03:06→20:14)
[2020-03-09] MEDS: ACETAMINOPHEN 1,000 MG/100 ML RTUPB IV SCH ×3 (05:44→22:18)
[2020-03-09] MEDS: GABAPENTIN 400 MG CAPSULE PO SCH ×3 (05:44→22:18)
--- NOTE | 2020-03-09 09:14 | RADIOLOGY REPORT (SQ) ---
EXAM DESCRIPTION: CHEST SINGLE VIEW IMAGES COMPLETED DATE/TIME: 03/09/2020 7:22 am REASON FOR STUDY: s/p VATS COMPARISON: 03/07/2020 EXAM PARAMETERS: NUMBER OF VIEWS: One view. TECHNIQUE: Single frontal radiographic view of the chest acquired. RADIATION DOSE: NA LIMITATIONS: None. FINDINGS: LUNGS AND PLEURA: Re-expansion of the right lung. 2 indwelling chest tubes. Small right effusion. No pneumothorax currently noted. Left lung clear. MEDIASTINUM AND HILAR STRUCTURES: No masses. Contour normal. HEART AND VASCULAR STRUCTURES: Heart normal in size. Normal vasculature. BONES: No acute findings. HARDWARE: Chest 2 OTHER: Chest wall emphysema on the right. IMPRESSION: Indwelling right chest tubes with re-expansion of the right lung. Small right effusion. TECHNICAL DOCUMENTATION: JOB ID: [id number] 2010 [employer]- All Rights Reserved Reading location - IP/workstation name: [email or web address]
[2020-03-09] MEDS: CITALOPRAM HYDROBROMIDE 20 MG TABLET PO SCH (09:46)
[2020-03-09] MEDS: FAMOTIDINE 20 MG TABLET PO SCH ×2 (09:46→17:35)
[2020-03-09] MEDS: DOCUSATE SODIUM 100 MG CAPSULE PO SCH ×2 (09:46→17:35)
[2020-03-09] MEDS: NICOTINE 21 MG/24 HR PATCH.TD24 TD SCH (09:47)
--- NOTE | 2020-03-09 12:09 | PDOC PROGRESS REPORT ---
Subjective Progress Note for:: 03/09/20 Reason For Visit: RECURRENT SPONTANEOUS PTX Physical Exam Vital Signs: Temp Pulse Resp BP Pulse Ox 98.8 F 92 18 119/75 100 03/09/20 00:02 03/09/20 00:02 03/09/20 00:02 03/09/20 00:02 03/09/20 09:38 Pulse Oximeter Continuous Start: 03/07/20 19:42 Freq: RTQ4 Status: Active Protocol: Document 03/09/20 09:38 LEDY (Rec: 03/09/20 09:38 LEDY [email or web address]) Pulse Oximetry Assessment Oxygen Saturation (92-100) 100 Oxygen Delivery Method Room Air Fraction of Inspired Oxygen (FIO2) 21 Equipment Usage Equipment in Use Continuous SpO2 Machine # 7 Intake & Output 03/08/20 03/09/20 03/10/20 06:59 06:59 06:59 Intake Total 3638 2920 Output Total 160 240 Balance 3478 2680 Weight 63.8 kg 63.8 kg Results Laboratory Results: 03/06/20 11:07 03/06/20 11:07 Impressions: Chest X-Ray 03/09/20 06:00 IMPRESSION: Indwelling right chest tubes with re-expansion of the right lung. Small right effusion. Assessment & Plan - Diagnosis (1) Spontaneous pneumothorax Is this a current diagnosis for this admission?: Yes - Time Anticipated Discharge Disposition: Home, Self Care Anticipated Discharge Timeframe: unknown - Plan Summary Plan Summary: 39-year-old female with a recurrent spontaneous right-sided pneumothorax. She is status post VATS with pleurodesis. After surgery, she had a small air leak evident, but there is no air leaktoday. Chest x-ray shows a completely expanded lung field. Still with high output from chest tubes (600cc of serous output over 24 hours). Continue with chest tubes to suction. Pain control. Out of bed. Aggressive pulmonary toilet.
[2020-03-09] MEDS: ZOLPIDEM TARTRATE 5 MG TABLET PO SCH (22:18)
[2020-03-10] MEDS: KETOROLAC TROMETHAMINE INJ/PF 30 MG/1 ML SDV IV SCH ×3 (01:37→19:05)
[2020-03-10] MEDS: MORPHINE SULFATE 10 MG/ML INJ IV PRN ×3 (01:42→19:04)
[2020-03-10] MEDS: OXYCODONE HCL IR 5 MG TABLET PO PRN ×4 (04:26→21:41)
[2020-03-10] MEDS: ACETAMINOPHEN 1,000 MG/100 ML RTUPB IV SCH ×3 (07:15→21:44)
[2020-03-10] MEDS: GABAPENTIN 400 MG CAPSULE PO SCH ×3 (07:42→21:42)
--- NOTE | 2020-03-10 10:49 | PDOC PROGRESS REPORT ---
Subjective Progress Note for:: 03/10/20 Reason For Visit: RECURRENT SPONTANEOUS PTX Physical Exam Vital Signs: Temp Pulse Resp BP Pulse Ox 102.6 F H 108 H 18 112/55 L 98 03/10/20 03:11 03/10/20 03:11 03/10/20 03:11 03/10/20 03:11 03/10/20 08:00 Pulse Oximeter Continuous Start: 03/07/20 19:42 Freq: RTQ4 Status: Active Protocol: Document 03/10/20 08:00 LEDY (Rec: 03/10/20 09:59 LEDY [email or web address]) Pulse Oximetry Assessment Oxygen Saturation (92-100) 98 Oxygen Delivery Method Room Air Fraction of Inspired Oxygen (FIO2) 21 Equipment Usage Equipment in Use Continuous SpO2 Machine # 7 Intake & Output 03/09/20 03/10/20 03/11/20 06:59 06:59 06:59 Intake Total 2920 1930 Output Total 240 Balance 2680 1930 Weight 63.8 kg 68.4 kg Results Laboratory Results: 03/06/20 11:07 03/06/20 11:07 Impressions: Chest X-Ray 03/09/20 06:00 IMPRESSION: Indwelling right chest tubes with re-expansion of the right lung. Small right effusion. Assessment & Plan - Diagnosis (1) Spontaneous pneumothorax Is this a current diagnosis for this admission?: Yes - Time Anticipated Discharge Disposition: Home, Self Care Anticipated Discharge Timeframe: unknown - Plan Summary Plan Summary: 39-year-old female with a recurrent spontaneous right-sided pneumothorax. She is status post VATS with pleurodesis. After surgery, she had a small air leak evident, but there is no air leak today. Output from chest tube is decreasing. Approximately 350cc over 24 hours. Continue with chest tubes to suction. Fevers overnight is expected with talc pleurodesis. Cont with current management. Pain control. Out of bed. Aggressive pulmonary toilet.
[2020-03-10] MEDS: CITALOPRAM HYDROBROMIDE 20 MG TABLET PO SCH (10:55)
[2020-03-10] MEDS: FAMOTIDINE 20 MG TABLET PO SCH ×2 (10:55→19:05)
[2020-03-10] MEDS: NICOTINE 21 MG/24 HR PATCH.TD24 TD SCH (10:55)
[2020-03-10] MEDS: DOCUSATE SODIUM 100 MG CAPSULE PO SCH ×2 (10:55→19:05)
[2020-03-10] MEDS: CLONAZEPAM 1 MG TABLET PO PRN (19:58)
[2020-03-10] MEDS: ZOLPIDEM TARTRATE 5 MG TABLET PO SCH (21:42)
[2020-03-11] MEDS: OXYCODONE HCL IR 5 MG TABLET PO PRN ×6 (02:01→21:49)
[2020-03-11] MEDS: KETOROLAC TROMETHAMINE INJ/PF 30 MG/1 ML SDV IV SCH (02:01)
[2020-03-11] MEDS: GABAPENTIN 400 MG CAPSULE PO SCH ×3 (06:07→21:49)
[2020-03-11] MEDS ORDERED: ACETAMINOPHEN 1,000 MG/100 ML RTUPB IV ONE (06:34)
[2020-03-11] MEDS: ACETAMINOPHEN 1,000 MG/100 ML RTUPB IV SCH (06:42)
[2020-03-11] MEDS: DOCUSATE SODIUM 100 MG CAPSULE PO SCH ×2 (09:14→18:39)
[2020-03-11] MEDS: CITALOPRAM HYDROBROMIDE 20 MG TABLET PO SCH (09:16)
[2020-03-11] MEDS: NICOTINE 21 MG/24 HR PATCH.TD24 TD SCH (09:16)
[2020-03-11] MEDS: FAMOTIDINE 20 MG TABLET PO SCH ×2 (09:16→18:39)
[2020-03-11] MEDS ORDERED: ACETAMINOPHEN 325 MG TABLET PO ONE (09:25)
[2020-03-11] MEDS ORDERED: OXYCODONE HCL IR 5 MG TABLET PO ONE (09:30)
[2020-03-11] MEDS: IBUPROFEN 800 MG TABLET PO SCH ×2 (11:47→16:58)
[2020-03-11] MEDS: CLONAZEPAM 1 MG TABLET PO PRN (11:47)
[2020-03-11] MEDS: ALBUTEROL SULFATE 0.042% NEB (1.25 MG/3 ML) AMPUL NEB SCH ×3 (12:00→21:24)
--- NOTE | 2020-03-11 12:26 | RADIOLOGY REPORT (SQ) ---
EXAM DESCRIPTION: CHEST SINGLE VIEW IMAGES COMPLETED DATE/TIME: 03/11/2020 11:33 am REASON FOR STUDY: s/p VATS. Eval for effusion or PTX COMPARISON: 03/09/2020 EXAM PARAMETERS: NUMBER OF VIEWS: One view. TECHNIQUE: Single frontal radiographic view of the chest acquired. RADIATION DOSE: NA LIMITATIONS: None. FINDINGS: LUNGS AND PLEURA: There is no pneumothorax. There is considerable opacification in the ri ght base. There is limited retrocardiac opacification on the left. The left hemidiaphragm remains w ell defined. MEDIASTINUM AND HILAR STRUCTURES: No masses. Contour normal. HEART AND VASCULAR STRUCTURES: Heart normal in size. Normal vasculature. BONES: No acute findings. HARDWARE: 2 thoracotomy tubes are present in the right hemithorax. OTHER: No other significant finding. IMPRESSION: No pneumothorax. There is fairly dense opacification in the right base and limited opac ification in the left base. Cannot exclude multicentric pneumonia. TECHNICAL DOCUMENTATION: JOB ID: [id number] 2010 [employer]- All Rights Reserved Reading location - IP/workstation name: [email or web address]
[2020-03-11] MEDS: HYDROMORPHONE HCL INJ/PF 2 MG/ML AMPULE IV PRN ×2 (15:09→20:11)
--- NOTE | 2020-03-11 17:39 | PDOC PROGRESS REPORT ---
Subjective Date:: 03/11/20 Reason For Visit: RECURRENT SPONTANEOUS PTX Physical Exam Vital Signs: Temp Pulse Resp BP Pulse Ox 100.7 F H 86 16 130/78 H 97 03/11/20 12:00 03/11/20 16:00 03/11/20 16:00 03/11/20 12:00 03/11/20 16:00 Pulse Oximeter Continuous Start: 03/07/20 19:42 Freq: RTQ4 Status: Active Protocol: Document 03/11/20 16:[address] [facility] (Rec: 03/11/20 16:[address] [facility] [email or web address]) Pulse Oximetry Assessment Oxygen Saturation (92-100) 97 Oxygen Flow Rate (L/min) 2 Oxygen Delivery Method Nasal Cannula Equipment Usage Equipment in Use Continuous SpO2 Machine # 7 Intake & Output 03/10/20 03/11/20 03/12/20 06:59 06:59 06:59 Intake Total 2029 1630 120 Output Total 110 Balance 2029 1520 120 Weight 68.4 kg 72.3 kg Results Laboratory Results: 03/06/20 11:07 03/06/20 11:07 03/06/20 12:56 Blood Blood Culture - Final NO GROWTH IN 5 DAYS 03/06/20 11:07 Blood Blood Culture - Final NO GROWTH IN 5 DAYS Impressions: Chest X-Ray 03/11/20 06:00 IMPRESSION: No pneumothorax. There is fairly dense opacification in the right base and limited opacification in the left base. Cannot exclude multicentric pneumonia. Assessment & Plan - Diagnosis (1) Spontaneous pneumothorax Is this a current diagnosis for this admission?: Yes - Time Anticipated Discharge Disposition: Home, Self Care Anticipated Discharge Timeframe: unknown - Plan Summary Plan Summary: 39-year-old female with a recurrent spontaneous right-sided pneumothorax. She is status post VATS with pleurodesis. After surgery, she had a small air leak evident, but there is no air leak today. Output from chest tube is se rosanguinous. A Continue with chest tubes to suction for now. The patient continues to experience fevers. Today, she complains of pain. Her pulmonary toilet is very poor. She has rhonchi present bilaterally. I am concerned that her pulmonary toilet is so poor, that she may be developing pneumonia. She only reached approximately 300 to 400 cc on her incentive spirometer. I have strongly encouraged her to get out of bed, cough, and deep breathe. If she does not do this, she will develop pneumonia, and likely require a ventilator. She has expressed verbal understanding of this. She has agreed to try harder with her pulmonary toilet. Ordered nebs and chest physiotherapy. Pain control. Out of bed. Aggressive pulmonary toilet.
[2020-03-11] MEDS: ZOLPIDEM TARTRATE 5 MG TABLET PO SCH (21:49)
[2020-03-11] MEDS: ACETAMINOPHEN 325 MG TABLET PO PRN (23:21)
[2020-03-12] MEDS: ALBUTEROL SULFATE 0.042% NEB (1.25 MG/3 ML) AMPUL NEB SCH ×6 (00:14→20:18)
[2020-03-12] MEDS: HYDROMORPHONE HCL INJ/PF 2 MG/ML AMPULE IV PRN ×4 (03:02→19:42)
[2020-03-12] MEDS: GABAPENTIN 400 MG CAPSULE PO SCH ×3 (05:58→21:50)
[2020-03-12] MEDS: OXYCODONE HCL IR 5 MG TABLET PO PRN ×4 (06:35→21:49)
[2020-03-12 07:02] LABS: HEMATOCRIT 30.1 % (36.0-47.0); HEMOGLOBIN 10.6 g/dL (12.0-15.5); MEAN CORPUSCULAR HEMOGLOBIN 34.8 pg (27.0-33.4); MEAN CORPUSCULAR HGB CONC 35.3 g/dL (32.0-36.0); MEAN CORPUSCULAR VOLUME 99 fl (80-97); PLATELET COUNT 354 10^3/uL (150-450); RED BLOOD COUNT 3.05 10^6/uL (3.72-5.28); RED CELL DISTRIBUTION WIDTH 12.6 % (11.5-14.0); WHITE BLOOD COUNT 16.4 10^3/uL (4.0-10.5)
[2020-03-12 07:28] LABS: ALBUMIN 2.8 g/dL (3.5-5.0); ALKALINE PHOSPHATASE 96 U/L (38-126); ANION GAP 12 (5-19); ASPARTATE AMINO TRANSFERASE 17 U/L (14-36); BILIRUBIN,DIRECT 0.2 mg/dL (0.0-0.4); BILIRUBIN,TOTAL 0.4 mg/dL (0.2-1.3); BLOOD UREA NITROGEN 10 mg/dL (7-20); CALCIUM 8.6 mg/dL (8.4-10.2); CARBON DIOXIDE 21 mmol/L (22-30); CHLORIDE 101 mmol/L (98-107); GLUCOSE 113 mg/dL (75-110); TOTAL PROTEIN 5.7 g/dL (6.3-8.2)
[2020-03-12 08:02] LABS: ABSOLUTE LYMPHOCYTES# (MANUAL) 1.8 10^3/uL (0.5-4.7); BAND NEUTROPHILS % (MANUAL) 1 % (3-5); BASOPHILS % (MANUAL) 0 % (0-2); EOSINOPHILS % (MANUAL) 2 % (0-6); LYMPHOCYTES % (MANUAL) 11 % (13-45); MONOCYTES % (MANUAL) 6 % (3-13); SEGMENTED NEUTROPHILS % (MAN) 80 % (42-78); TOTAL CELLS COUNTED 100
[2020-03-12 08:04] LABS: PLATELET COMMENT ADEQUATE; RBC MORPHOLOGY COMMENT NORMO-CYTIC/CHROMIC
[2020-03-12] MEDS: CITALOPRAM HYDROBROMIDE 20 MG TABLET PO SCH (09:06)
[2020-03-12] MEDS: IBUPROFEN 800 MG TABLET PO SCH ×3 (09:08→17:23)
[2020-03-12] MEDS: DOCUSATE SODIUM 100 MG CAPSULE PO SCH ×2 (09:08→17:24)
[2020-03-12] MEDS: NICOTINE 21 MG/24 HR PATCH.TD24 TD SCH (09:09)
[2020-03-12] MEDS: FAMOTIDINE 20 MG TABLET PO SCH ×2 (09:09→17:24)
--- NOTE | 2020-03-12 09:58 | RADIOLOGY REPORT (SQ) ---
EXAM DESCRIPTION: CHEST SINGLE VIEW IMAGES COMPLETED DATE/TIME: 03/12/2020 8:27 am REASON FOR STUDY: atelectasis vs pneumonia COMPARISON: Multiple chest films since 03/02/2020 CT chest 02/26/2020 EXAM PARAMETERS: NUMBER OF VIEWS: One view. TECHNIQUE: Single frontal radiographic view of the chest acquired. RADIATION DOSE: NA LIMITATIONS: None. FINDINGS: LUNGS AND PLEURA: There are 2 large bore right chest tubes with the tips over the apex rig ht hemithorax. No right apical pneumothorax. No right lateral chest wall air. Volume loss and consolidation throughout the right lower lobe, atelectasis versus pneumonia. This is increased compared to 03/09/2020. Stable bandlike left basilar atelectasis compared to 03/09/2020. No pleural effusions. No left pneumothorax. MEDIASTINUM AND HILAR STRUCTURES: No masses. Contour normal. HEART AND VASCULAR STRUCTURES: Heart normal in size. Normal vasculature. BONES: No acute findings. HARDWARE: 2 large bore right chest tubes are unchanged OTHER: No other significant finding. IMPRESSION: No pneumothorax. 2 right large bore chest tubes are in place. Since 03/09/2020, patient has developed consolidation of the right lung base atelectasis versus pneumo noelle. Stable left retrocardiac bandlike atelectasis TECHNICAL DOCUMENTATION: JOB ID: [id number] 2010 [employer]- All Rights Reserved Reading location - IP/workstation name: [email or web address]
[2020-03-12] MEDS ORDERED: VANCOMYCIN HCL 0 MG in DEXTROSE 5%-WATER 250 ML IV NR (10:00)
--- NOTE | 2020-03-12 12:45 | PDOC PROGRESS REPORT ---
Subjective Date:: 03/12/20 Reason For Visit: RECURRENT SPONTANEOUS PTX Physical Exam Vital Signs: Temp Pulse Resp BP Pulse Ox 99.0 F 111 H 16 120/66 96 03/12/20 08:00 03/12/20 11:58 03/12/20 11:58 03/12/20 08:00 03/12/20 11:58 Pulse Oximeter Continuous Start: 03/07/20 19:42 Freq: RTQ4 Status: Active Protocol: Document 03/12/20 11:58 LDA (Rec: 03/12/20 11:59 LDA [email or web address]) Pulse Oximetry Assessment Oxygen Saturation (92-100) 96 Oxygen Delivery Method Room Air Equipment Usage Equipment in Use Continuous SpO2 Machine # 7 Intake & Output 03/11/20 03/12/20 03/13/20 06:59 06:59 06:59 Intake Total 1630 1020 Output Total 110 1685 Balance 1520 -665 Weight 72.3 kg 72 kg Results Laboratory Results: 03/12/20 06:24 03/12/20 06:24 03/12/20 03/12/20 06:24 06:24 WBC 16.4 H RBC 3.05 L Hgb 10.6 L Hct 30.1 L MCV 99 H MCH 34.8 H MCHC 35.3 RDW 12.6 Plt Count 354 Seg Neutrophils % Not Reportable Sodium 134.3 L Potassium 5.0 Chloride 101 Carbon Dioxide 21 L Anion Gap 12 BUN 10 Creatinine 0.76 Est GFR ( Amer) > 60 Glucose 113 H Calcium 8.6 Total Bilirubin 0.4 AST 17 Alkaline Phosphatase 96 Total Protein 5.7 L Albumin 2.8 L 03/06/20 12:56 Blood Blood Culture - Final NO GROWTH IN 5 DAYS 03/06/20 11:07 Blood Blood Culture - Final NO GROWTH IN 5 DAYS Impressions: Chest X-Ray 03/12/20 06:00 IMPRESSION: No pneumothorax. 2 right large bore chest tubes are in place. Since 03/09/2020, patient has developed consolidation of the right lung base atel ectasis versus pneumonia. Stable left retrocardiac bandlike atelectasis Assessment & Plan - Diagnosis (1) Spontaneous pneumothorax Is this a current diagnosis for this admission?: Yes - Time Anticipated Discharge Disposition: Home, Self Care Anticipated Discharge Timeframe: unknown - Plan Summary Plan Summary: 39-year-old female with a recurrent spontaneous right-sided pneumothorax. She is status post VATS with pleurodesis. After surgery, she had a small air leak evident, but there is no air leak today. Output from chest tube is serosanguinous. A Continue with chest tubes to suction for now. The patient continues to experience fevers. Today, she complains of pain. Her pulmonary toilet is still poor. She has rhonchi present bilaterally. I am concerned that her pulmonary toilet is so poor, that she may be developing pneumonia. She only reached 500 cc on her incentive spirometer today. I have strongly encouraged her to get out of bed, cough, and deep breathe. Her chest x-ray continues to show consolidation of bilateral lower lobes. I will start her on Vancomycin and levaquin for possible hospital acquired pneumonia Cont nebs and chest physiotherapy. Pain control. Out of bed. Aggressive pulmonary toilet.
[2020-03-12] MEDS: VANCOMYCIN HCL 1,500 MG in DEXTROSE 5%-WATER 250 ML IV SCH ×2 (13:25→22:45)
[2020-03-12] MEDS: LEVOFLOXACIN 500 MG/D5W RTU 500 MG/100 ML RTUPB IV SCH (15:07)
[2020-03-12] MEDS: CLONAZEPAM 1 MG TABLET PO PRN (17:23)
[2020-03-12] MEDS: ZOLPIDEM TARTRATE 5 MG TABLET PO SCH (21:50)
[2020-03-13] MEDS: ALBUTEROL SULFATE 0.042% NEB (1.25 MG/3 ML) AMPUL NEB SCH ×6 (00:33→20:19)
[2020-03-13] MEDS: HYDROMORPHONE HCL INJ/PF 2 MG/ML AMPULE IV PRN ×5 (00:38→21:15)
[2020-03-13] MEDS: GABAPENTIN 400 MG CAPSULE PO SCH ×3 (05:18→21:16)
[2020-03-13] MEDS: ACETAMINOPHEN 325 MG TABLET PO PRN (05:31)
[2020-03-13] MEDS: OXYCODONE HCL IR 5 MG TABLET PO PRN ×4 (06:04→19:18)
[2020-03-13 06:56] LABS: HEMATOCRIT 30.7 % (36.0-47.0); HEMOGLOBIN 10.6 g/dL (12.0-15.5); MEAN CORPUSCULAR HEMOGLOBIN 34.2 pg (27.0-33.4); MEAN CORPUSCULAR HGB CONC 34.5 g/dL (32.0-36.0); MEAN CORPUSCULAR VOLUME 99 fl (80-97); PLATELET COUNT 411 10^3/uL (150-450); WHITE BLOOD COUNT 14.4 10^3/uL (4.0-10.5)
[2020-03-13 07:11] LABS: ANION GAP 11 (5-19); BLOOD UREA NITROGEN 8 mg/dL (7-20); CALCIUM 9.1 mg/dL (8.4-10.2); CARBON DIOXIDE 25 mmol/L (22-30); CHLORIDE 100 mmol/L (98-107); GLUCOSE 119 mg/dL (75-110); POTASSIUM 4.8 mmol/L (3.6-5.0)
[2020-03-13 07:55] LABS: ABSOLUTE LYMPHOCYTES# (MANUAL) 1.3 10^3/uL (0.5-4.7); ABSOLUTE MONOCYTES # (MANUAL) 0.9 10^3/uL (0.1-1.4); BASOPHILS % (MANUAL) 1 % (0-2); EOSINOPHILS % (MANUAL) 3 % (0-6); LYMPHOCYTES % (MANUAL) 9 % (13-45); MONOCYTES % (MANUAL) 6 % (3-13); SEGMENTED NEUTROPHILS % (MAN) 81 % (42-78); TOTAL CELLS COUNTED 100
[2020-03-13 07:56] LABS: PLATELET COMMENT ADEQUATE; RBC MORPHOLOGY COMMENT NORMO-CYTIC/CHROMIC
--- NOTE | 2020-03-13 09:04 | RADIOLOGY REPORT (SQ) ---
EXAM DESCRIPTION: CHEST SINGLE VIEW IMAGES COMPLETED DATE/TIME: 03/13/2020 8:48 am REASON FOR STUDY: pneumonia COMPARISON: 03/12/2020 NUMBER OF VIEWS: One view. TECHNIQUE: Single frontal radiographic image of the chest acquired. LIMITATIONS: None. FINDINGS: LUNGS AND PLEURA: Stable appearance. Large-bore right-sided chest tubes remain in place. No pneumothorax. MEDIASTINUM AND HILAR STRUCTURES: Stable heart size and mediastinal structures. HEART AND VASCULAR STRUCTURES: Stable appearance. BONES: No acute findings. HARDWARE: None in the chest. OTHER: No other significant finding. IMPRESSION: STABLE APPEARANCE OF THE CHEST. TECHNICAL DOCUMENTATION: JOB ID: [id number] 2010 [employer]- All Rights Reserved Reading location - IP/workstation name: [email or web address]
[2020-03-13] MEDS: IBUPROFEN 800 MG TABLET PO SCH ×3 (10:18→17:00)
[2020-03-13] MEDS: DOCUSATE SODIUM 100 MG CAPSULE PO SCH ×2 (10:19→17:01)
[2020-03-13] MEDS: CITALOPRAM HYDROBROMIDE 20 MG TABLET PO SCH (10:19)
[2020-03-13] MEDS: FAMOTIDINE 20 MG TABLET PO SCH ×2 (10:19→17:01)
[2020-03-13] MEDS: VANCOMYCIN HCL 1,500 MG in DEXTROSE 5%-WATER 250 ML IV SCH ×3 (10:20→22:24)
[2020-03-13] MEDS: NICOTINE 21 MG/24 HR PATCH.TD24 TD SCH (10:21)
[2020-03-13] MEDS: CLONAZEPAM 1 MG TABLET PO PRN ×2 (13:33→23:33)
[2020-03-13] MEDS: LEVOFLOXACIN 500 MG/D5W RTU 500 MG/100 ML RTUPB IV SCH (13:33)
--- NOTE | 2020-03-13 14:52 | PDOC PROGRESS REPORT ---
Subjective Date:: 03/13/20 Reason For Visit: RECURRENT SPONTANEOUS PTX Physical Exam Vital Signs: Temp Pulse Resp BP Pulse Ox 97.9 F 108 H 18 122/69 92 03/13/20 11:38 03/13/20 12:06 03/13/20 12:06 03/13/20 11:38 03/13/20 12:06 Pulse Oximeter Continuous Start: 03/07/20 19:42 Freq: RTQ4 Status: Active Protocol: Document 03/13/20 12:06 Lidia (Rec: 03/13/20 12:09 J [email or web address]) Pulse Oximetry Assessment Oxygen Saturation (92-100) 92 Oxygen Delivery Method Room Air Fraction of Inspired Oxygen (FIO2) 21 Equipment Usage Equipment in Use Continuous SpO2 Machine # 7 Intake & Output 03/12/20 03/13/20 03/14/20 06:59 06:59 06:59 Intake Total 1020 2670 510 Output Total 1685 2800 0 Balance -665 -130 510 Weight 72 kg 72 kg Results Laboratory Results: 03/13/20 06:35 03/13/20 06:35 03/13/20 03/13/20 06:35 06:35 WBC 14.4 H RBC 3.10 L Hgb 10.6 L Hct 30.7 L MCV 99 H MCH 34.2 H MCHC 34.5 RDW 13.0 Plt Count 411 Seg Neutrophils % Not Reportable Sodium 136.3 L Potassium 4.8 Chloride 100 Carbon Dioxide 25 Anion Gap 11 BUN 8 Creatinine 0.63 Est GFR ( Amer) > 60 Glucose 119 H Calcium 9.1 Impressions: Chest X-Ray 03/13/20 06:00 IMPRESSION: STABLE APPEARANCE OF THE CHEST. Assessment & Plan - Diagnosis (1) Spontaneous pneumothorax Is this a current diagnosis for this admission?: Yes - Time Anticipated Discharge Disposition: Home, Self Care Anticipated Discharge Timeframe: unknown - Plan Summary Plan Summary: 39-year-old female with a recurrent spontaneous right-sided pneumothorax. She is status post VATS with pleurodesis. After surgery, she had a small air leak evident, but there is no air leak today. Output from chest tube is serosanguinous and minimal. I will remove the anterior chest tube today. The patient continues to experience fevers, although they are improved. Today, she continues to complain of pain. Her pulmonary toilet is still poor. She has rhonchi present bilaterally. She has reached 750 cc on her incentive spirometer today. I have strongly encouraged her to get out of bed, cough, and deep breath e. Her chest x-ray continues to show consolidation of bilateral lower lobes c/w pneumonia. Cont Vancomycin and levaquin for possible hospital acquired pneumonia Cont nebs and chest physiotherapy. Pain control. Out of bed. Aggressive pulmonary toilet.
[2020-03-13] MEDS: GUAIFENESIN 600 MG TABLET.SA PO SCH (21:16)
[2020-03-13] MEDS: ZOLPIDEM TARTRATE 5 MG TABLET PO SCH (21:16)
[2020-03-13 23:21] LABS: VANCOMYCIN,TROUGH 8.4 ug/mL (5.0-20.0)
[2020-03-14] MEDS: ALBUTEROL SULFATE 0.042% NEB (1.25 MG/3 ML) AMPUL NEB SCH ×6 (01:01→21:00)
[2020-03-14] MEDS: OXYCODONE HCL IR 5 MG TABLET PO PRN ×5 (01:28→20:31)
[2020-03-14] MEDS: HYDROMORPHONE HCL INJ/PF 2 MG/ML AMPULE IV PRN ×5 (01:52→22:23)
[2020-03-14] MEDS: GABAPENTIN 400 MG CAPSULE PO SCH ×3 (06:14→21:39)
[2020-03-14 06:48] LABS: ABSOLUTE EOSINOPHILS # (AUTO) 0.6 10^3/uL (0.0-0.6); ABSOLUTE LYMPHOCYTES (AUTO) 1.5 10^3/uL (0.5-4.7); ABSOLUTE MONOCYTES (AUTO) 1.5 10^3/uL (0.1-1.4); BASOPHILS % (AUTO) 0.3 % (0-2); EOSINOPHILS % (AUTO) 3.4 % (0-6); HEMATOCRIT 30.3 % (36.0-47.0); HEMOGLOBIN 10.3 g/dL (12.0-15.5); LYMPHOCYTES % (AUTO) 9.2 % (13-45); MEAN CORPUSCULAR HEMOGLOBIN 33.8 pg (27.0-33.4); MEAN CORPUSCULAR HGB CONC 33.9 g/dL (32.0-36.0); MEAN CORPUSCULAR VOLUME 100 fl (80-97); MONOCYTES % (AUTO) 9.1 % (3-13); PLATELET COUNT 492 10^3/uL (150-450); RED BLOOD COUNT 3.04 10^6/uL (3.72-5.28); RED CELL DISTRIBUTION WIDTH 12.8 % (11.5-14.0); TOTAL CELLS COUNTED % (AUTO) 100 %; WHITE BLOOD COUNT 16.7 10^3/uL (4.0-10.5)
[2020-03-14 07:18] LABS: ANION GAP 12 (5-19); BLOOD UREA NITROGEN 7 mg/dL (7-20); CALCIUM 8.8 mg/dL (8.4-10.2); CARBON DIOXIDE 22 mmol/L (22-30); CHLORIDE 101 mmol/L (98-107); GLUCOSE 98 mg/dL (75-110); POTASSIUM 4.8 mmol/L (3.6-5.0)
[2020-03-14] MEDS: IBUPROFEN 800 MG TABLET PO SCH ×3 (07:47→17:57)
[2020-03-14] MEDS: LEVOFLOXACIN 500 MG/D5W RTU 500 MG/100 ML RTUPB IV SCH (09:06)
[2020-03-14] MEDS: NICOTINE 21 MG/24 HR PATCH.TD24 TD SCH (09:06)
[2020-03-14] MEDS: DOCUSATE SODIUM 100 MG CAPSULE PO SCH ×2 (09:07→17:57)
[2020-03-14] MEDS: FAMOTIDINE 20 MG TABLET PO SCH ×2 (09:07→17:57)
[2020-03-14] MEDS: CITALOPRAM HYDROBROMIDE 20 MG TABLET PO SCH (09:08)
[2020-03-14] MEDS: GUAIFENESIN 600 MG TABLET.SA PO SCH ×2 (09:09→21:38)
[2020-03-14] MEDS: VANCOMYCIN HCL 1,250 MG in DEXTROSE 5%-WATER 250 ML IV SCH ×2 (10:27→17:56)
--- NOTE | 2020-03-14 10:59 | RADIOLOGY REPORT (SQ) ---
EXAM DESCRIPTION: CHEST SINGLE VIEW IMAGES COMPLETED DATE/TIME: 03/14/2020 8:30 am REASON FOR STUDY: bilateral pneumonia COMPARISON: Previous day. NUMBER OF VIEWS: One view. TECHNIQUE: Single frontal radiographic image of the chest acquired. LIMITATIONS: None. FINDINGS: LUNGS AND PLEURA: Stable appearance. No pneumothorax. MEDIASTINUM AND HEART: Stable heart size and mediastinal structures. SUPPORT DEVICES: 1 of 2 large bore chest tubes on the right have been removed. BONY STRUCTURES: No acute findings. HARDWARE: None. OTHER: No other significant finding. IMPRESSION: Interval removal of 1 of the right chest tubes. Otherwise no change. Reading location - IP/workstation name: [email or web address]
[2020-03-14] MEDS: CLONAZEPAM 1 MG TABLET PO PRN (16:16)
[2020-03-14] MEDS ORDERED: ZOLPIDEM TARTRATE 5 MG TABLET PO PRN (16:30)
--- NOTE | 2020-03-14 19:59 | PDOC PROGRESS REPORT ---
Subjective Date:: 03/14/20 Reason For Visit: RECURRENT SPONTANEOUS PTX Physical Exam Vital Signs: Temp Pulse Resp BP Pulse Ox 97.8 F 88 16 115/70 95 03/14/20 16:33 03/14/20 16:35 03/14/20 16:35 03/14/20 16:33 03/14/20 16:35 Pulse Oximeter Continuous Start: 03/07/20 19:42 Freq: RTQ4 Status: Active Protocol: Document 03/14/20 16:35 LEDY (Rec: 03/14/20 16:37 LEDY [email or web address]) Pulse Oximetry Assessment Oxygen Saturation (92-100) 95 Oxygen Delivery Method Room Air Fraction of Inspired Oxygen (FIO2) 21 Equipment Usage Equipment Standby Continuous SpO2 Machine # nurse monitor Intake & Output 03/13/20 03/14/20 03/15/20 06:59 06:59 06:59 Intake Total 2670 2130 860 Output Total 2800 692 1460 Balance -130 1438 -600 Weight 72 kg 72 kg Results Laboratory Results: 03/14/20 06:21 03/14/20 06:21 03/13/20 03/14/20 03/14/20 22:03 06:21 06:21 WBC 16.7 H RBC 3.04 L Hgb 10.3 L Hct 30.3 L MCV 100 H MCH 33.8 H MCHC 33.9 RDW 12.8 Plt Count 492 H Seg Neutrophils % 78.0 Sodium 135.1 L Potassium 4.8 Chloride 101 Carbon Dioxide 22 Anion Gap 12 BUN 7 Creatinine 0.62 0.57 Est GFR ( Amer) > 60 > 60 Glucose 98 Calcium 8.8 Impressions: Chest X-Ray 03/14/20 06:00 IMPRESSION: Interval removal of 1 of the right chest tubes. Otherwise no change. Assessment & Plan - Diagnosis (1) Spontaneous pneumothorax Is this a current diagnosis for this admission?: Yes - Time Anticipated Discharge Disposition: Home, Self Care Anticipated Discharge Timeframe: Unknown - Plan Summary Plan Summary: 39-year-old female with a recurrent spontaneous right-sided pneumothorax. She is status post VATS with pleurodesis. After surgery, she had a small air leak evident, but there is no air leak today. Output from chest tube is serosangui nous and minimal. Anterior chest tube removed yesterday. Fevers have resolved. Today, she continues to complain of pain but it is improved from previous. Her pulmonary toilet is improving. She has reached 1000 cc on her incentive spirometer today. I have strongly encouraged her to get out of bed, cough, and deep breathe. Her chest x-ray appears improved today. Cont Vancomycin and levaquin for possible hospital acquired pneumonia Cont nebs and chest physiotherapy. Pain control. Out of bed. Aggressive pulmonary toilet.
[2020-03-14] MEDS: ACETAMINOPHEN 325 MG TABLET PO PRN (20:07)
[2020-03-15] MEDS: ALBUTEROL SULFATE 0.042% NEB (1.25 MG/3 ML) AMPUL NEB SCH ×6 (00:33→20:37)
[2020-03-15] MEDS: VANCOMYCIN HCL 1,250 MG in DEXTROSE 5%-WATER 250 ML IV SCH ×2 (01:11→11:45)
[2020-03-15] MEDS: OXYCODONE HCL IR 5 MG TABLET PO PRN ×5 (02:48→20:25)
[2020-03-15] MEDS: HYDROMORPHONE HCL INJ/PF 2 MG/ML AMPULE IV PRN ×5 (04:22→22:44)
[2020-03-15] MEDS: GABAPENTIN 400 MG CAPSULE PO SCH ×3 (05:01→22:35)
[2020-03-15] MEDS: ACETAMINOPHEN 325 MG TABLET PO PRN (05:01)
[2020-03-15] MEDS: IBUPROFEN 800 MG TABLET PO SCH ×3 (07:53→18:03)
[2020-03-15] MEDS: GUAIFENESIN 600 MG TABLET.SA PO SCH ×2 (09:22→21:15)
[2020-03-15] MEDS: CITALOPRAM HYDROBROMIDE 20 MG TABLET PO SCH (09:22)
--- NOTE | 2020-03-15 09:25 | RADIOLOGY REPORT (SQ) ---
EXAM DESCRIPTION: CHEST SINGLE VIEW IMAGES COMPLETED DATE/TIME: 03/15/2020 9:09 am REASON FOR STUDY: pneumonia COMPARISON: Multiple since 03/09/2020 EXAM PARAMETERS: NUMBER OF VIEWS: One view. TECHNIQUE: Single frontal radiographic view of the chest acquired. RADIATION DOSE: NA LIMITATIONS: None. FINDINGS: LUNGS AND PLEURA: Bibasilar airspace disease is unchanged. Single right apical chest tube persists, no pneumothorax. No pleural effusion MEDIASTINUM AND HILAR STRUCTURES: No masses. Contour normal. HEART AND VASCULAR STRUCTURES: Heart normal in size. Normal vasculature. BONES: No acute findings. HARDWARE: None in the chest. OTHER: No other significant finding. IMPRESSION: Bibasilar airspace disease is unchanged. Single right apical chest tube persists, no pneumothorax TECHNICAL DOCUMENTATION: JOB ID: [id number] [employer]- All Rights Reserved Reading location - IP/workstation name: [email or web address]
[2020-03-15 09:30] LABS: HEMOGLOBIN 10.5 g/dL (12.0-15.5); MEAN CORPUSCULAR HEMOGLOBIN 35.1 pg (27.0-33.4); MEAN CORPUSCULAR HGB CONC 36.1 g/dL (32.0-36.0); MEAN CORPUSCULAR VOLUME 97 fl (80-97); PLATELET COUNT 582 10^3/uL (150-450); RED BLOOD COUNT 2.98 10^6/uL (3.72-5.28); WHITE BLOOD COUNT 14.5 10^3/uL (4.0-10.5)
[2020-03-15 09:47] LABS: VANCOMYCIN,TROUGH 11.4 ug/mL (5.0-20.0)
[2020-03-15 09:51] LABS: ABSOLUTE LYMPHOCYTES# (MANUAL) 1.3 10^3/uL (0.5-4.7); ABSOLUTE MONOCYTES # (MANUAL) 1.2 10^3/uL (0.1-1.4); BASOPHILS % (MANUAL) 1 % (0-2); EOSINOPHILS % (MANUAL) 3 % (0-6); LYMPHOCYTES % (MANUAL) 9 % (13-45); MONOCYTES % (MANUAL) 8 % (3-13); SEGMENTED NEUTROPHILS % (MAN) 79 % (42-78); TOTAL CELLS COUNTED 100
[2020-03-15 09:52] LABS: ANISOCYTOSIS SLIGHT; OVALOCYTES SLIGHT; PLATELET COMMENT ADEQUATE; POIKILOCYTOSIS SLIGHT; POLYCHROMASIA SLIGHT
[2020-03-15 09:53] LABS: SPHEROCYTES SLIGHT
[2020-03-15] MEDS: DOCUSATE SODIUM 100 MG CAPSULE PO SCH ×2 (09:53→18:03)
[2020-03-15] MEDS: ENOXAPARIN SODIUM INJ 40 MG/0.4 ML DISP.SYRIN SUBCUT SCH (09:53)
[2020-03-15] MEDS: NICOTINE 21 MG/24 HR PATCH.TD24 TD SCH (09:54)
[2020-03-15] MEDS: FAMOTIDINE 20 MG TABLET PO SCH ×2 (09:54→18:03)
[2020-03-15] MEDS: LEVOFLOXACIN 500 MG/D5W RTU 500 MG/100 ML RTUPB IV SCH (09:54)
--- NOTE | 2020-03-15 14:46 | PDOC PROGRESS REPORT ---
Subjective Date:: 03/15/20 Reason For Visit: RECURRENT SPONTANEOUS PTX Physical Exam Vital Signs: Temp Pulse Resp BP Pulse Ox 97.5 F 73 16 116/51 L 98 03/15/20 11:21 03/15/20 12:24 03/15/20 12:24 03/15/20 11:21 03/15/20 12:24 Pulse Oximeter Continuous Start: 03/07/20 19:42 Freq: RTQ4 Status: Active Protocol: Document 03/15/20 12:24 [facility] (Rec: 03/15/20 12:25 [email or web address] [email or web address]) Pulse Oximetry Assessment Oxygen Saturation (92-100) 96 Oxygen Delivery Method Room Air Fraction of Inspired Oxygen (FIO2) 21 Equipment Usage Equipment Standby Continuous SpO2 Machine # rt pulse ox Intake & Output 03/14/20 03/15/20 03/16/20 06:59 06:59 06:59 Intake Total 2130 2010 590 Output Total 713 1480 Balance 1417 530 590 Weight 72 kg 72.5 kg Results Laboratory Results: 03/15/20 09:04 03/14/20 06:21 03/15/20 09:04 WBC 14.5 H RBC 2.98 L Hgb 10.5 L Hct 29.0 L MCV 97 MCH 35.1 H MCHC 36.1 H RDW 13.0 Plt Count 582 H Seg Neutrophils % Not Reportable Impressions: Chest X-Ray 03/15/20 07:31 IMPRESSION: Bibasilar airspace disease is unchanged. Single right apical chest tube persists, no pneumothorax Assessment & Plan - Diagnosis (1) Spontaneous pneumothorax Is this a current diagnosis for this admission?: Yes - Time Anticipated Discharge Disposition: Home, Self Care Anticipated Discharge Timeframe: within 48 hours - Plan Summary Plan Summary: 39-year-old female with a recurrent spontaneous right-sided pneumothorax. She is status post VATS with pleurodesis. There is no air leak today. Output from posterior chest tube is serosanguinous and minimal. Anterior chest tube was removed. Fevers have resolved. She continues to complain of pain, but it is improved from previous. Her pulmonary toilet is improving. She has reached 1000 cc on her incentive spirometer today. I have strongly encouraged her to get out of bed, cough, and deep breathe. Her chest x-ray is stable. Cont Vancomycin and levaquin for possible hospital acquired pneumonia. Remove remaining chest tube today. Cont Abx. Cont nebs and chest physiotherapy. Pain control. Out of bed. Aggressive pulmonary toilet.
[2020-03-15] MEDS: CLONAZEPAM 1 MG TABLET PO PRN (16:18)
[2020-03-15] MEDS: VANCOMYCIN HCL 1,500 MG in DEXTROSE 5%-WATER 250 ML IV SCH (18:07)
[2020-03-16] MEDS: ALBUTEROL SULFATE 0.042% NEB (1.25 MG/3 ML) AMPUL NEB SCH ×6 (00:35→20:44)
[2020-03-16] MEDS: VANCOMYCIN HCL 1,500 MG in DEXTROSE 5%-WATER 250 ML IV SCH ×3 (01:22→17:33)
[2020-03-16] MEDS: OXYCODONE HCL IR 5 MG TABLET PO PRN ×4 (01:27→17:04)
[2020-03-16] MEDS: HYDROMORPHONE HCL INJ/PF 2 MG/ML AMPULE IV PRN ×4 (05:00→22:05)
[2020-03-16] MEDS: GABAPENTIN 400 MG CAPSULE PO SCH ×3 (05:07→22:02)
[2020-03-16] MEDS ORDERED: CLONAZEPAM 1 MG TABLET PO PRN (05:48)
[2020-03-16] MEDS: ACETAMINOPHEN 325 MG TABLET PO PRN ×2 (07:21→20:16)
[2020-03-16 08:19] LABS: HEMATOCRIT 31.8 % (36.0-47.0); HEMOGLOBIN 11.1 g/dL (12.0-15.5); MEAN CORPUSCULAR HEMOGLOBIN 34.3 pg (27.0-33.4); MEAN CORPUSCULAR HGB CONC 35.1 g/dL (32.0-36.0); MEAN CORPUSCULAR VOLUME 98 fl (80-97); PLATELET COUNT 649 10^3/uL (150-450); RED BLOOD COUNT 3.24 10^6/uL (3.72-5.28); WHITE BLOOD COUNT 15.1 10^3/uL (4.0-10.5)
[2020-03-16] MEDS: IBUPROFEN 800 MG TABLET PO SCH ×3 (08:19→20:22)
--- NOTE | 2020-03-16 09:02 | PDOC PROGRESS REPORT ---
Subjective Date:: 03/16/20 Reason For Visit: RECURRENT SPONTANEOUS PTX Physical Exam Vital Signs: Temp Pulse Resp BP Pulse Ox 99.6 F 116 H 16 110/60 96 03/16/20 08:23 03/16/20 08:02 03/16/20 08:02 03/16/20 07:12 03/16/20 08:02 Pulse Oximeter Continuous Start: 03/07/20 19:42 Freq: RTQ4 Status: Active Protocol: Document 03/16/20 08:02 [facility] (Rec: 03/16/20 08:11 [facility] [email or web address]) Pulse Oximetry Assessment Oxygen Saturation (92-100) 96 Oxygen Flow Rate (L/min) 2 Oxygen Delivery Method Nasal Cannula Fraction of Inspired Oxygen (FIO2) 28 Equipment Usage Equipment Standby Continuous SpO2 Machine # 7 Intake & Output 03/15/20 03/16/20 03/17/20 06:59 06:59 06:59 Intake Total 2009 2201 Output Total 1480 Balance 530 2202 Weight 72.5 kg 73 kg Results Laboratory Results: 03/14/20 06:21 03/15/20 09:04 WBC 14.5 H RBC 2.98 L Hgb 10.5 L Hct 29.0 L MCV 97 MCH 35.1 H MCHC 36.1 H RDW 13.0 Plt Count 582 H Seg Neutrophils % Not Reportable Impressions: Chest X-Ray 03/15/20 07:31 IMPRESSION: Bibasilar airspace disease is unchanged. Single right apical chest tube persists, no pneumothorax Assessment & Plan - Diagnosis (1) Spontaneous pneumothorax Is this a current diagnosis for this admission?: Yes - Time Anticipated Discharge Disposition: Home, Self Care Anticipated Discharge Timeframe: unknown - Plan Summary Plan Summary: 39-year-old female with a recurrent spontaneous right-sided pneumothorax. She is status post VATS with pleurodesis. Both chest tubes have been removed. Fevers recurred this am. She continues to complain of pain. Her pulmonary toilet is worse today. She has reached 750 cc on her incentive spirometer today. I have strongly encouraged her to get out of bed, cough, and deep breathe. Her chest x-ray is pending. Cont Vancomycin and levaquin for hospital acquired p neumonia. Awaiting CXR. Cont Abx. Cont nebs and chest physiotherapy. Pain control. Out of bed. Aggressive pulmonary toilet.
[2020-03-16 09:35] LABS: ABSOLUTE MONOCYTES # (MANUAL) 0.8 10^3/uL (0.1-1.4); BASOPHILS % (MANUAL) 2 % (0-2); EOSINOPHILS % (MANUAL) 2 % (0-6); LYMPHOCYTES % (MANUAL) 13 % (13-45); MONOCYTES % (MANUAL) 5 % (3-13); SEGMENTED NEUTROPHILS % (MAN) 78 % (42-78); TOTAL CELLS COUNTED 100
[2020-03-16 09:36] LABS: PLATELET COMMENT ADEQUATE; RBC MORPHOLOGY COMMENT NORMO-CYTIC/CHROMIC
[2020-03-16] MEDS: ENOXAPARIN SODIUM INJ 40 MG/0.4 ML DISP.SYRIN SUBCUT SCH (09:36)
[2020-03-16] MEDS: DOCUSATE SODIUM 100 MG CAPSULE PO SCH ×2 (09:37→17:07)
[2020-03-16] MEDS: FAMOTIDINE 20 MG TABLET PO SCH ×2 (09:37→17:05)
[2020-03-16] MEDS: LEVOFLOXACIN 500 MG/D5W RTU 500 MG/100 ML RTUPB IV SCH (09:39)
[2020-03-16] MEDS: NICOTINE 21 MG/24 HR PATCH.TD24 TD SCH (09:40)
[2020-03-16] MEDS: GUAIFENESIN 600 MG TABLET.SA PO SCH ×2 (11:46→22:03)
[2020-03-16] MEDS: CITALOPRAM HYDROBROMIDE 20 MG TABLET PO SCH (11:46)
--- NOTE | 2020-03-16 12:30 | RADIOLOGY REPORT (SQ) ---
EXAM DESCRIPTION: CHEST SINGLE VIEW IMAGES COMPLETED DATE/TIME: 03/16/2020 9:15 am REASON FOR STUDY: eval pneumonia COMPARISON: 03/15/2020. 03/14/2020. CT chest, 02/26/2020. EXAM PARAMETERS: NUMBER OF VIEWS: One view. TECHNIQUE: Single frontal radiographic view of the chest acquired. RADIATION DOSE: NA LIMITATIONS: None. FINDINGS: LUNGS AND PLEURA: Persistent consolidation in the right mid to lower lung with small right pleural effusion/pleural thickening, stable. No definite residual pneumothorax. Left lung remains clear. MEDIASTINUM AND HILAR STRUCTURES: No masses. Contour normal. HEART AND VASCULAR STRUCTURES: Heart normal in size. Normal vasculature. BONES: No acute findings. HARDWARE: Interval removal of the right chest tube. OTHER: No other significant finding. IMPRESSION: Interval removal of the right chest tube. No definite residual pneumothorax. Right con solidation/atelectasis and pleural effusion/thickening, stable. TECHNICAL DOCUMENTATION: JOB ID: [id number] 2010 [employer]- All Rights Reserved Reading location - IP/workstation name: [email or web address]
[2020-03-16] MEDS: CLONAZEPAM 1 MG TABLET PO PRN (17:04)
[2020-03-17] MEDS: ALBUTEROL SULFATE 0.042% NEB (1.25 MG/3 ML) AMPUL NEB SCH ×6 (00:03→20:21)
[2020-03-17] MEDS: VANCOMYCIN HCL 1,500 MG in DEXTROSE 5%-WATER 250 ML IV SCH ×3 (02:50→17:46)
[2020-03-17] MEDS: OXYCODONE HCL IR 5 MG TABLET PO PRN ×4 (05:54→22:24)
[2020-03-17] MEDS: GABAPENTIN 400 MG CAPSULE PO SCH ×3 (05:56→22:24)
[2020-03-17 06:22] LABS: HEMATOCRIT 30.5 % (36.0-47.0); HEMOGLOBIN 10.5 g/dL (12.0-15.5); MEAN CORPUSCULAR HEMOGLOBIN 33.9 pg (27.0-33.4); MEAN CORPUSCULAR HGB CONC 34.6 g/dL (32.0-36.0); MEAN CORPUSCULAR VOLUME 98 fl (80-97); PLATELET COUNT 543 10^3/uL (150-450); RED BLOOD COUNT 3.11 10^6/uL (3.72-5.28); RED CELL DISTRIBUTION WIDTH 13.1 % (11.5-14.0); WHITE BLOOD COUNT 19.1 10^3/uL (4.0-10.5)
[2020-03-17 06:37] LABS: ANION GAP 11 (5-19); BLOOD UREA NITROGEN 12 mg/dL (7-20); CALCIUM 8.8 mg/dL (8.4-10.2); CARBON DIOXIDE 23 mmol/L (22-30); CHLORIDE 102 mmol/L (98-107); GLUCOSE 110 mg/dL (75-110)
[2020-03-17 07:47] LABS: ABSOLUTE LYMPHOCYTES# (MANUAL) 1.9 10^3/uL (0.5-4.7); ABSOLUTE MONOCYTES # (MANUAL) 0.8 10^3/uL (0.1-1.4); BAND NEUTROPHILS % (MANUAL) 4 % (3-5); BASOPHILS % (MANUAL) 0 % (0-2); EOSINOPHILS % (MANUAL) 1 % (0-6); LYMPHOCYTES % (MANUAL) 9 % (13-45); METAMYELOCYTES % (MANUAL) 1 % (0-1); MONOCYTES % (MANUAL) 4 % (3-13); PLATELET COMMENT ADEQUATE; RBC MORPHOLOGY COMMENT NORMO-CYTIC/CHROMIC; SEGMENTED NEUTROPHILS % (MAN) 80 % (42-78); TOTAL CELLS COUNTED 100
[2020-03-17] MEDS: HYDROMORPHONE HCL INJ/PF 2 MG/ML AMPULE IV PRN ×3 (09:27→20:49)
[2020-03-17] MEDS: IBUPROFEN 800 MG TABLET PO SCH ×3 (09:28→17:45)
[2020-03-17] MEDS: DOCUSATE SODIUM 100 MG CAPSULE PO SCH ×2 (09:28→18:18)
[2020-03-17] MEDS: FAMOTIDINE 20 MG TABLET PO SCH ×2 (09:28→18:18)
[2020-03-17] MEDS: CITALOPRAM HYDROBROMIDE 20 MG TABLET PO SCH (09:29)
[2020-03-17] MEDS: GUAIFENESIN 600 MG TABLET.SA PO SCH (09:29)
[2020-03-17] MEDS: NICOTINE 21 MG/24 HR PATCH.TD24 TD SCH (09:35)
[2020-03-17] MEDS: ENOXAPARIN SODIUM INJ 40 MG/0.4 ML DISP.SYRIN SUBCUT SCH (09:35)
--- NOTE | 2020-03-17 10:37 | PDOC PROGRESS REPORT ---
Subjective Date:: 03/17/20 Reason For Visit: RECURRENT SPONTANEOUS PTX Physical Exam Vital Signs: Temp Pulse Resp BP Pulse Ox 99.1 F 113 H 18 111/58 L 91 L 03/17/20 08:11 03/17/20 08:26 03/17/20 08:26 03/17/20 08:11 03/17/20 08:26 Pulse Oximeter Continuous Start: 03/07/20 19:42 Freq: RTQ4 Status: Active Protocol: Document 03/17/20 08:26 [facility] (Rec: 03/17/20 08:33 [facility] [email or web address]) Pulse Oximetry Assessment Oxygen Saturation (92-100) 91 Oxygen Delivery Method Room Air Fraction of Inspired Oxygen (FIO2) 21 Equipment Usage Equipment Standby Continuous SpO2 Machine # 7 Intake & Output 03/16/20 03/17/20 03/18/20 06:59 06:59 06:59 Intake Total 2452 3110 Balance 2452 3110 Weight 73 kg 73.2 kg 71.2 kg Results Laboratory Results: 03/17/20 05:56 03/17/20 05:56 03/17/20 03/17/20 05:56 05:56 WBC 19.1 H RBC 3.11 L Hgb 10.5 L Hct 30.5 L MCV 98 H MCH 33.9 H MCHC 34.6 RDW 13.1 Plt Count 543 H Seg Neutrophils % Not Reportable Sodium 135.5 L Potassium 5.0 Chloride 102 Carbon Dioxide 23 Anion Gap 11 BUN 12 Creatinine 0.66 Est GFR ( Amer) > 60 Glucose 110 Calcium 8.8 Impressions: Chest X-Ray 03/16/20 00:00 IMPRESSION: Interval removal of the right chest tube. No definite residual pneumothorax. Right consolidation/atelectasis and pleural effusion/thickening, stable. Assessment & Plan - Diagnosis (1) Spontaneous pneumothorax Is this a current diagnosis for this admission?: Yes - Time Anticipated Discharge Disposition: Home, Self Care Anticipated Discharge Timeframe: unknown - Plan Summary Plan Summary: 39-year-old female with a recurrent spontaneous right-sided pneumothorax. She is status post VATS with pleurodesis. Both chest tubes have been removed. Fevers again overnight. She continues to complain of pain, but her pain meds are working. Her pulmonary toilet is improving and she feels better today. She has reached 1500 cc on her incentive spirometer today. I have again encouraged her to get out of bed, cough, and deep breathe. Cont Vancomycin and levaquin for hospital acquired pneumonia. WBC's higher today. Order CT of the chest to visualize the lung parechyma and ensure there is no residual fluid in the thoracic cavity. Cont Abx. Cont nebs and chest physiotherapy. Pain control. Out of bed. Aggressive pulmonary toilet.
[2020-03-17] MEDS: LEVOFLOXACIN 500 MG/D5W RTU 500 MG/100 ML RTUPB IV SCH (11:53)
[2020-03-17] MEDS: CLONAZEPAM 1 MG TABLET PO PRN ×2 (11:53→22:39)
--- NOTE | 2020-03-17 15:00 | RADIOLOGY REPORT (SQ) ---
EXAM DESCRIPTION: CT CHEST WITH IMAGES COMPLETED DATE/TIME: 03/17/2020 1:42 pm REASON FOR STUDY: pneumonia, s/p VATS COMPARISON: Chest films 03/16/2020, 03/15/2020 TECHNIQUE: CT scan of the chest performed using helical scanning technique with dynamic intravenous contrast injection. Images reviewed with lung, soft tissue and bone windows. Reconstructed coronal and sagittal MPR and MIP images reviewed. All images stored on PACS. All CT scanners at this facility use dose modulation, iterative reconstruction, and/or weight based d osing when appropriate to reduce radiation dose to as low as reasonably achievable (ALARA). [facility]: Dose Right [facility]: CareDose [facility]: Dose Right [facility]: Teradose 4D [facility]: [employer] CONTRAST TYPE AND DOSE: contrast/concentration: Isovue 350.00 mmol/ml; Total Contrast Delivered: 70. 0 ml; Total Saline Delivered: 40.5 ml RENAL FUNCTION: Creatinine 1.2 RADIATION DOSE: CT Rad equipment meets quality standard of care and radiation dose reduction techniq ues were employed. CTDIvol: 4.8 mGy. DLP: 188 mGy-cm. . LIMITATIONS: None. FINDINGS: LUNGS AND PLEURA: Several small loculations of fluid are present in the right pleural spac e, anteriorly and posteriorly at the right apex, along the right major fissure laterally, and in the right posterior costophrenic sulcus. Moderate amount of fluid in the right posterior costophrenic gutierres lcus. These findings correlate with peripheral pleural based density chest film 03/16/2020, and are similar compared to 03/15/2020 HILAR AND MEDIASTINAL STRUCTURES: No identified masses or abnormal nodes. HEART AND VASCULAR STRUCTURES: No aneurysm or dissection. No central pulmonary emboli. No pericardi al effusion. HARDWARE: Bilateral breast implants UPPER ABDOMEN: No significant findings. Limited exam. THYROID AND OTHER SOFT TISSUES: No masses. No adenopathy. BONES: No significant finding. OTHER: No other significant finding. IMPRESSION: Multiple small peripheral loculations of pleural fluid the upper and mid right hemithora x. Small to moderate size loculated pleural effusion in the posterior right costophrenic sulcus. TECHNICAL DOCUMENTATION: JOB ID: [id number] Quality ID # [id number]: Final reports with documentation of one or more dose reduction techniques (e.g., Au tomated exposure control, adjustment of the mA and/or kV according to patient size, use of iterative reconstruction technique) 2010 [employer]- All Rights Reserved Reading location - IP/workstation name: [email or web address]
[2020-03-17 17:21] LABS: VANCOMYCIN,TROUGH 16.6 ug/mL (5.0-20.0)
[2020-03-18] MEDS: ALBUTEROL SULFATE 0.042% NEB (1.25 MG/3 ML) AMPUL NEB SCH ×6 (01:20→21:02)
[2020-03-18] MEDS: GUAIFENESIN 600 MG TABLET.SA PO SCH ×3 (03:13→21:19)
[2020-03-18] MEDS: VANCOMYCIN HCL 1,500 MG in DEXTROSE 5%-WATER 250 ML IV SCH ×3 (04:00→18:02)
[2020-03-18] MEDS: HYDROMORPHONE HCL INJ/PF 2 MG/ML AMPULE IV PRN ×5 (04:30→22:38)
[2020-03-18] MEDS: GABAPENTIN 400 MG CAPSULE PO SCH ×3 (06:28→21:18)
[2020-03-18] MEDS: OXYCODONE HCL IR 5 MG TABLET PO PRN ×5 (06:31→23:46)
[2020-03-18] MEDS: IBUPROFEN 800 MG TABLET PO SCH ×3 (07:53→18:02)
[2020-03-18] MEDS: DOCUSATE SODIUM 100 MG CAPSULE PO SCH ×2 (09:20→18:03)
[2020-03-18] MEDS: FAMOTIDINE 20 MG TABLET PO SCH ×2 (09:21→18:01)
[2020-03-18] MEDS: ENOXAPARIN SODIUM INJ 40 MG/0.4 ML DISP.SYRIN SUBCUT SCH (09:21)
[2020-03-18] MEDS: CITALOPRAM HYDROBROMIDE 20 MG TABLET PO SCH (09:21)
[2020-03-18] MEDS: NICOTINE 21 MG/24 HR PATCH.TD24 TD SCH (09:21)
[2020-03-18] MEDS: LEVOFLOXACIN 500 MG/D5W RTU 500 MG/100 ML RTUPB IV SCH (09:21)
[2020-03-18 10:58] LABS: HEMATOCRIT 31.3 % (36.0-47.0); HEMOGLOBIN 10.6 g/dL (12.0-15.5); MEAN CORPUSCULAR VOLUME 97 fl (80-97); PLATELET COUNT 683 10^3/uL (150-450); RED BLOOD COUNT 3.22 10^6/uL (3.72-5.28); RED CELL DISTRIBUTION WIDTH 12.8 % (11.5-14.0); WHITE BLOOD COUNT 23.7 10^3/uL (4.0-10.5)
[2020-03-18 11:23] LABS: ABSOLUTE LYMPHOCYTES# (MANUAL) 4.5 10^3/uL (0.5-4.7); ABSOLUTE MONOCYTES # (MANUAL) 0.9 10^3/uL (0.1-1.4); BASOPHILS % (MANUAL) 0 % (0-2); EOSINOPHILS % (MANUAL) 0 % (0-6); LYMPHOCYTES % (MANUAL) 17 % (13-45); MONOCYTES % (MANUAL) 4 % (3-13); SEGMENTED NEUTROPHILS % (MAN) 77 % (42-78); TOTAL CELLS COUNTED 100
[2020-03-18 11:24] LABS: PLATELET COMMENT INCREASED; POLYCHROMASIA 1+
--- NOTE | 2020-03-18 13:08 | PDOC PROGRESS REPORT ---
Subjective Date:: 03/18/20 Reason For Visit: RECURRENT SPONTANEOUS PTX Physical Exam Vital Signs: Temp Pulse Resp BP Pulse Ox 97.5 F 90 16 102/70 96 03/18/20 11:29 03/18/20 11:29 03/18/20 11:29 03/18/20 11:29 03/18/20 11:29 Pulse Oximeter Continuous Start: 03/07/20 19:42 Freq: RTQ4 Status: Active Protocol: Document 03/18/20 11:41 [facility] (Rec: 03/18/20 11:42 [facility] [email or web address]) Pulse Oximetry Assessment Equipment Usage Equipment Standby Continuous SpO2 Machine # 7 Additional RT Notes Other per pt request Intake & Output 03/17/20 03/18/20 03/19/20 06:59 06:59 06:59 Intake Total 3110 1790 Balance 3110 1790 Weight 73.2 kg 73.2 kg Results Laboratory Results: 03/18/20 10:39 03/17/20 05:56 03/18/20 10:39 WBC 23.7 H RBC 3.22 L Hgb 10.6 L Hct 31.3 L MCV 97 MCH 33.0 MCHC 34.0 RDW 12.8 Plt Count 683 H Seg Neutrophils % Not Reportable Impressions: Chest X-Ray 03/16/20 00:00 IMPRESSION: Interval removal of the right chest tube. No definite residual pneumothorax. Right consolidation/atelectasis and pleural effusion/thickening, stable. Chest CT 03/17/20 00:00 IMPRESSION: Multiple small peripheral loculations of pleural fluid the upper and mid right hemithorax. Small to moderate size loculated pleural effusion in the posterior right costophrenic sulcus. Assessment & Plan - Diagnosis (1) Spontaneous pneumothorax Is this a current diagnosis for this admission?: Yes - Time Anticipated Discharge Disposition: Home, Self Care Anticipated Discharge Timeframe: within 48 hours - Plan Summary Plan Summary: 39-year-old female with a recurrent spontaneous right-sided pneumothorax. She is status post VATS with pleurodesis. Both chest tubes have been removed. She feels better today. Her fevers have improved. Her pulmonary toilet is improving. She has reached 1500 cc on her incentive spirometer today. I have again encouraged her to get out of bed, cough, and deep breathe. Cont Vancomycin and levaquin for hospital acquired pneumonia. WBC's higher again today. I have reviewed her CT scan. There is a fluid collection in the posterior sulcus of the diaphragm. This is causing compressive atelectasis, and may be contributing to her leukocytosis. The remainder of the chest looks good. Plan for thoracentesis today to remove the posterior thoracic fluid. Home once leukocytosis improving, and the patient is feeling better. Cont Abx. Cont nebs and chest physiotherapy. Pain control. Out of bed. Aggressive pulmonary toilet.
[2020-03-18] MEDS: CLONAZEPAM 1 MG TABLET PO PRN ×2 (15:32→23:52)
--- NOTE | 2020-03-18 17:57 | Operative Report ---
Nonrecallable Operative Report DATE OF SURGERY: 03/18/20 PREOPERATIVE DIAGNOSIS: Posterior/inferior fluid collection in the right hemithorax POSTOPERATIVE DIAGNOSIS: 1. Same as above. 2. 10 cc of thin, serous fluid aspirated from the right posterior thorax OPERATION: Ultrasound-guided thoracentesis, right posterior thorax. SURGEON: THANIA MORGAN ANESTHESIA: Local TISSUE REMOVED OR ALTERED: 10 cc of serous fluid COMPLICATIONS: Minimal amount of fluid able to be removed. ESTIMATED BLOOD LOSS: Minimal PROCEDURE: Drains/implants: None. Procedure in detail: After informed consent was obtained from the patient, she was sat in the upright position in the hospital room. The right posterior hemithorax was evaluated with an ultrasound. There was a small fluid stripe found in the posterior, inferior position. Under direct ultrasonic guidance, the Veress needle and thoracentesis catheter were inserted into the thoracic cavity. A small amount of serosanguineous fluid was aspirated from the thoracic cavity, approximately 10 cc in total. It was not milky or purulent appearing. The catheter was manipulated, however no further fluid could be removed. The catheter was at this time removed from the patient, and the procedure was concluded. All sponge, instrument, and needle counts were correct x2. Condition: Stable.
[2020-03-18] MEDS: ZOLPIDEM TARTRATE 5 MG TABLET PO SCH (21:18)
[2020-03-19] MEDS: ALBUTEROL SULFATE 0.042% NEB (1.25 MG/3 ML) AMPUL NEB SCH ×4 (01:52→12:45)
[2020-03-19] MEDS: VANCOMYCIN HCL 1,500 MG in DEXTROSE 5%-WATER 250 ML IV SCH ×2 (06:00→10:45)
[2020-03-19] MEDS: GABAPENTIN 400 MG CAPSULE PO SCH ×3 (06:22→21:59)
[2020-03-19] MEDS: HYDROMORPHONE HCL INJ/PF 2 MG/ML AMPULE IV PRN ×4 (06:23→19:51)
[2020-03-19] MEDS: IBUPROFEN 800 MG TABLET PO SCH ×3 (08:19→17:52)
[2020-03-19] MEDS: OXYCODONE HCL IR 5 MG TABLET PO PRN ×4 (08:20→22:02)
[2020-03-19 09:06] LABS: HEMATOCRIT 31.2 % (36.0-47.0); HEMOGLOBIN 10.8 g/dL (12.0-15.5); MEAN CORPUSCULAR HEMOGLOBIN 33.5 pg (27.0-33.4); MEAN CORPUSCULAR HGB CONC 34.4 g/dL (32.0-36.0); MEAN CORPUSCULAR VOLUME 97 fl (80-97); PLATELET COUNT 811 10^3/uL (150-450); RED BLOOD COUNT 3.21 10^6/uL (3.72-5.28); RED CELL DISTRIBUTION WIDTH 13.1 % (11.5-14.0); WHITE BLOOD COUNT 24.3 10^3/uL (4.0-10.5)
[2020-03-19 09:33] LABS: ABSOLUTE LYMPHOCYTES# (MANUAL) 4.4 10^3/uL (0.5-4.7); BAND NEUTROPHILS % (MANUAL) 2 % (3-5); BASOPHILS % (MANUAL) 1 % (0-2); EOSINOPHILS % (MANUAL) 0 % (0-6); LYMPHOCYTES % (MANUAL) 18 % (13-45); MONOCYTES % (MANUAL) 4 % (3-13); SEGMENTED NEUTROPHILS % (MAN) 75 % (42-78); TOTAL CELLS COUNTED 100
[2020-03-19 09:35] LABS: PLATELET COMMENT INCREASED; POLYCHROMASIA SLIGHT; TOXIC GRANULATION 1+
--- NOTE | 2020-03-19 09:44 | RADIOLOGY REPORT (SQ) ---
EXAM DESCRIPTION: CHEST SINGLE VIEW IMAGES COMPLETED DATE/TIME: 03/19/2020 9:29 am REASON FOR STUDY: s/p vats COMPARISON: AP view of the chest from 03/16/2020. EXAM PARAMETERS: NUMBER OF VIEWS: One view. TECHNIQUE: An AP view of the chest was obtained. RADIATION DOSE: NA LIMITATIONS: None. FINDINGS: LUNGS AND PLEURA: Increased consolidation in the superior aspect of the right hemithorax. Appearance of the lungs and pleura is otherwise unchanged. MEDIASTINUM AND HILAR STRUCTURES: Unchanged elevation of the right hemidiaphragm. HEART AND VASCULAR STRUCTURES: Stable cardiac silhouette. BONES: No acute findings. HARDWARE: None in the chest. OTHER: No other finding. IMPRESSION: Increased consolidation in the superior aspect of the right lung. TECHNICAL DOCUMENTATION: JOB ID: [id number] 2010 [employer]- All Rights Reserved Reading location - IP/workstation name: [email or web address]
[2020-03-19] MEDS: DOCUSATE SODIUM 100 MG CAPSULE PO SCH ×2 (09:53→18:16)
[2020-03-19] MEDS: CITALOPRAM HYDROBROMIDE 20 MG TABLET PO SCH (09:53)
[2020-03-19] MEDS: GUAIFENESIN 600 MG TABLET.SA PO SCH ×2 (09:53→22:02)
[2020-03-19] MEDS: LEVOFLOXACIN 500 MG/D5W RTU 500 MG/100 ML RTUPB IV SCH (10:46)
[2020-03-19] MEDS: ENOXAPARIN SODIUM INJ 40 MG/0.4 ML DISP.SYRIN SUBCUT SCH (10:46)
[2020-03-19] MEDS: NICOTINE 21 MG/24 HR PATCH.TD24 TD SCH (10:46)
[2020-03-19] MEDS: FAMOTIDINE 20 MG TABLET PO SCH ×2 (10:46→17:52)
[2020-03-19] MEDS: CLONAZEPAM 1 MG TABLET PO PRN (15:06)
[2020-03-19] MEDS: ZOLPIDEM TARTRATE 5 MG TABLET PO SCH (21:59)
[2020-03-20] MEDS: GABAPENTIN 400 MG CAPSULE PO SCH (05:59)
[2020-03-20] MEDS: OXYCODONE HCL IR 5 MG TABLET PO PRN (06:13)
[2020-03-20] MEDS: HYDROMORPHONE HCL INJ/PF 2 MG/ML AMPULE IV PRN (08:18)
[2020-03-20] MEDS: IBUPROFEN 800 MG TABLET PO SCH (08:20)
--- NOTE | 2020-03-20 08:28 | PDOC DISCHARGE SUMMARY ---
General - Admit/Disc Date/PCP Admission Date/Primary Care Provider: 03/06/20 11:23 Discharge Date: 03/20/20 - Discharge Diagnosis Final Diagnosis: recurrent spontaneous pneumothorax - Assessment Summary: 39-year-old female admitted with a recurrent right sided spontaneous pneumothorax. The patient elected to undergo VATS with pleurodesis, opposed to repeat chest tube placement. The patient underwent VATS with pleurodesis. She had a very poor pulmonary toilet after surgery, less than 300 cc on her incentive spirometer. She subsequently developed pneumonia, which was treated with intravenous vancomycin and Levaquin. Over the course of her hospital stay she had fevers as high as 103. Her pulmonary toilet slowly improved. Her chest tubes were removed. She was continued on antibiotics, however her white count remained elevated. A CT scan was performed showing small amount of fluid in the chest tube tracts, as well as an inferior fluid collection in the posterior s ulcus of the diaphragm. The posterior sulcus fluid collection was aspirated via thoracentesis. Approximately 10 cc of serosanguineous fluid was removed. There was no evidence of empyema. The patient's antibiotics were discontinued, and she remained afebrile for 24 hours. She is feeling well this morning. She is afebrile. Her pain is controlled with oral pain medications. She is requesting discharge home. I believe this to be reasonable. I have instructed her to use her incentive spirometer and continue with her aggressive pulmonary toilet at home. I will prescribe her Bactrim DS, 2 tabs p.o. twice daily for 10 days. She should follow-up with me in the office next week and obtain a chest x-ray. If she experiences recurrent fevers, chills, malaise, fatigue, or any other symptoms she is to notify me immediately. - Additional Information Resuscitation Status: Full Code Discharge Diet: As Tolerated Discharge Activity: Balance Activity w/Rest Referrals: THANIA MORGAN MD [ACTIVE STAFF] - 04/01/20 3:30 pm (PLEASE CALL THE OFFICE FOR QUESTIONS AND CONCERNS.) Prescriptions: Sulfamethoxazole/Trimethoprim [Bactrim Ds Tablet] 1 each PO BID #40 tablet Ibuprofen [Ibu] 800 mg PO TID #42 tablet Oxycodone HCl/Acetaminophen [Percocet 10-325 Mg Tablet] 1 each PO Q6HP PRN #28 tablet PRN Reason: For Pain Home Medications: Clonazepam [Klonopin 1 mg Tablet] 1 mg PO Q8HP PRN 12/08/18 Zolpidem Tartrate [Ambien 5 mg Tablet] 10 mg PO QHS 12/08/18 Citalopram Hydrobromide [Celexa] 20 mg PO DAILY 03/06/20 Gabapentin [Neurontin] 800 mg PO Q8 03/06/20 Ibuprofen [Ibu] 800 mg PO TID #42 tablet 03/20/20 Oxycodone HCl/Acetaminophen [Percocet 10-325 Mg Tablet] 1 each PO Q6HP PRN #28 tablet 03/20/20 Sulfamethoxazole/Trimethoprim [Bactrim Ds Tablet] 1 each PO BID #40 tablet 03/20/20 History of Present Illiness History of Present Illness: GOMEZ MCKEON is a 39 year old female who was admitted approximately 2 weeks ago for a spontaneous pneumothorax. She is a heavy smoker. Chest tube was placed, and the pneumothorax appeared to resolve. She was discharged home. Today, she reports increasing amounts of chest pain and shortness of breath. Her pain is sharp and stabbing. It occurs in the right lateral/posterior chest wall. She reports it is 6 out of 10 in intensity. She was sent for portable chest x-ray, which showed reaccumulation of the pneumothorax on the right. The patient then was sent to the emergency department for evaluation and hospital admission. Currently she reports chest pain and mild shortness of breath. She denies headache, nausea, vomiting, feeling of impending doom, palpitations, abdominal pain, melena, hematochezia, hematemesis, dizziness, blurry vision, orthostasis, weakness, fatigue, malaise. Physical Exam Vital Signs: Temp Pulse Resp BP Pulse Ox 98.0 F 107 H 16 104/63 96 03/20/20 07:28 03/20/20 07:28 03/20/20 07:28 03/20/20 07:28 03/20/20 07:28 Pulse Oximeter Continuous Start: 03/07/20 19:42 Freq: RTQ4 Status: Complete Protocol: Document 03/19/20 18:48 LDI (Rec: 03/19/20 18:49 LDI [id number]) Additional RT Notes Other tx changed to PRN. BS clear, tx not indicated. Pulse Oximetry Assessment Equipment Usage Equipment Standby Continuous SpO2 Machine # 7 Intake & Output 03/19/20 03/20/20 03/21/20 06:59 06:59 06:59 Intake Total 2239 2069 Balance 2239 2069 Weight 73.2 kg 63.7 kg Results Laboratory Results: WBC 24.3 10^3/uL (4.0-10.5) H 03/19/20 08:51 RBC 3.21 10^6/uL (3.72-5.28) L 03/19/20 08:51 Hgb 10.8 g/dL (12.0-15.5) L 03/19/20 08:51 Hct 31.2 % (36.0-47.0) L 03/19/20 08:51 MCV 97 fl (80-97) 03/19/20 08:51 MCH 33.5 pg (27.0-33.4) H 03/19/20 08:51 MCHC 34.4 g/dL (32.0-36.0) 03/19/20 08:51 RDW 13.1 % (11.5-14.0) 03/19/20 08:51 Plt Count 811 10^3/uL (150-450) H 03/19/20 08:51 Lymph % (Auto) Not Reportable 03/19/20 08:51 Wetzel % (Auto) Not Reportable 03/19/20 08:51 Eos % (Auto) Not Reportable 03/19/20 08:51 Baso % (Auto) Not Reportable 03/19/20 08:51 Absolute Neuts (auto) Not Reportable 03/19/20 08:51 Absolute Lymphs (auto) Not Reportable 03/19/20 08:51 Absolute Monos (auto) Not Reportable 03/19/20 08:51 Absolute Eos (auto) Not Reportable 03/19/20 08:51 Absolute Basos (auto) Not Reportable 03/19/20 08:51 Total Counted 100 03/19/20 08:51 Seg Neutrophils % Not Reportable 03/19/20 08:51 Seg Neuts % (Manual) 75 % (42-78) 03/19/20 08:51 Band Neutrophils % 2 % (3-5) L 03/19/20 08:51 Lymphocytes % (Manual) 18 % (13-45) 03/19/20 08:51 Atypical Lymphs % 2 % (0) 03/18/20 10:39 Monocytes % (Manual) 4 % (3-13) 03/19/20 08:51 Eosinophils % (Manual) 0 % (0-6) 03/19/20 08:51 Basophils % (Manual) 1 % (0-2) 03/19/20 08:51 Metamyelocytes % 1 % (0-1) 03/17/20 05:56 Abs Neuts (Manual) 18.7 10^3/uL (1.7-8.2) H 03/19/20 08:51 Abs Lymphs (Manual) 4.4 10^3/uL (0.5-4.7) 03/19/20 08:51 Abs Monocytes (Manual) 1.0 10^3/uL (0.1-1.4) 03/19/20 08:51 Absolute Eos (Manual) 0.0 10^3/uL (0.0-0.6) 03/19/20 08:51 Abs Basophils (Manual) 0.2 10^3/uL (0.0-0.2) 03/19/20 08:51 Toxic Granulation 1+ 03/19/20 08:51 Dohle Bodies PRESENT 03/12/20 06:24 Platelet Comment INCREASED 03/19/20 08:51 Polychromasia SLIGHT 03/19/20 08:51 Poikilocytosis SLIGHT 03/15/20 09:04 Anisocytosis SLIGHT 03/15/20 09:04 Microcytosis SLIGHT 03/15/20 09:04 Spherocytes SLIGHT 03/15/20 09:04 Ovalocytes SLIGHT 03/15/20 09:04 RBC Morph Comment NORMO-CYTIC/CHROMIC 03/17/20 05:56 PT 13.0 SEC (11.4-15.4) 03/06/20 11:07 INR 0.96 03/06/20 11:07 Sodium 135.5 mmol/L (137-145) L 03/17/20 05:56 Potassium 5.0 mmol/L (3.6-5.0) 03/17/20 05:56 Chloride 102 mmol/L (98-107) 03/17/20 05:56 Carbon Dioxide 23 mmol/L (22-30) 03/17/20 05:56 Anion Gap 11 (5-19) 03/17/20 05:56 BUN 12 mg/dL (7-20) 03/17/20 05:56 Creatinine 0.66 mg/dL (0.52-1.25) 03/17/20 05:56 Est GFR ( Amer) > 60 (>60) 03/17/20 05:56 Est GFR (MDRD) Non-Af > 60 (>60) 03/17/20 05:56 Glucose 110 mg/dL (75-110) 03/17/20 05:56 Calcium 8.8 mg/dL (8.4-10.2) 03/17/20 05:56 Total Bilirubin 0.4 mg/dL (0.2-1.3) 03/12/20 06:24 Direct Bilirubin 0.2 mg/dL (0.0-0.4) 03/12/20 06:24 Neonat Total Bilirubin Not Reportable 03/12/20 06:24 Neonat Direct Bilirubin Not Reportable 03/12/20 06:24 Neonat Indirect Bili Not Reportable 03/12/20 06:24 AST 17 U/L (14-36) 03/12/20 06:24 ALT 15 U/L (<35) 03/12/20 06:24 Alkaline Phosphatase 96 U/L (38-126) 03/12/20 06:24 Total Protein 5.7 g/dL (6.3-8.2) L 03/12/20 06:24 Albumin 2.8 g/dL (3.5-5.0) L 03/12/20 06:24 Time Trough Drawn 1649 03/17/20 16:49 Vancomycin Trough 16.6 ug/mL (5.0-20.0) 03/17/20 16:49 SARS-CoV-2 (PCR) NEGATIVE (NEGATIVE) 03/06/20 14:54 Blood Type A2sub NEGATIVE 03/06/20 11:07 Antibody Screen NEGATIVE 03/06/20 11:07 Antigen Identification A1 Antigen - NEGATIVE 03/06/20 11:07 Impressions: Chest X-Ray 03/07/20 06:00 IMPRESSION: Stable small right pneumothorax compared to 03/06/2020. Partial collapse of the right lower lobe. Chest X-Ray 03/09/20 06:00 IMPRESSION: Indwelling right chest tubes with re-expansion of the right lung. Small right effusion. Chest X-Ray 03/11/20 06:00 IMPRESSION: No pneumothorax. There is fairly dense opacification in the right base and limited opacification in the left base. Cannot exclude multicentric pneumonia. Chest X-Ray 03/12/20 06:00 IMPRESSION: No pneumothorax. 2 right large bore chest tubes are in place. Since 03/09/2020, patient has developed consolidation of the right lung base atelectasis versus pneumonia. Stable left retrocardiac bandlike atelectasis Chest X-Ray 03/13/20 06:00 IMPRESSION: STABLE APPEARANCE OF THE CHEST. Chest X-Ray 03/14/20 06:00 IMPRESSION: Interval removal of 1 of the right chest tubes. Otherwise no change. Chest X-Ray 03/15/20 07:31 IMPRESSION: Bibasilar airspace disease is unchanged. Single right apical chest tube persists, no pneumothorax Chest X-Ray 03/16/20 00:00 IMPRESSION: Interval removal of the right chest tube. No definite residual pneumothorax. Right consolidation/atelectasis and pleural effusion/thickening, stable. Chest CT 03/17/20 00:00 IMPRESSION: Multiple small peripheral loculations of pleural fluid the upper and mid right hemithorax. Small to moderate size loculated pleural effusion in the posterior right costophrenic sulcus. Chest X-Ray 03/19/20 06:00 IMPRESSION: Increased consolidation in the superior aspect of the right lung.
[2020-03-20 08:51] VITALS: BP 95/47
== END 2020-03-20 10:03 | disposition home or self-care (01) | DRG 166 ==
LOC: ER 10:25 → EH 11:23 → 4S 16:11 → 2N 03-19 22:49
PROVIDERS: ATTEND Surgery
PROC: 3E0L4GC Introduction of Other Therapeutic Substance into Pleural Cavity, Percutaneous Endoscopic Approach (ICD-10-PCS; principal; 2020-03-07 16:00)
PROC: 0W993ZZ Drainage of Right Pleural Cavity, Percutaneous Approach (ICD-10-PCS; 2020-03-18)
DX: J93.83 Other pneumothorax (principal); J18.9 Pneumonia, unspecified organism; M19.90 Unspecified osteoarthritis, unspecified site; F31.9 Bipolar disorder, unspecified; F17.200 Nicotine dependence, unspecified, uncomplicated; M54.9 Dorsalgia, unspecified; F41.9 Anxiety disorder, unspecified; Z11.59 Encounter for screening for other viral diseases; Z79.899 Other long term (current) drug therapy; Z98.1 Arthrodesis status
CPT/HCPCS: 36415; 540; 71045; 71260; 80048; 80053; 80202; 82565; 85025; 85610; 86850; 86900; 86901; 87040; 87635; 90471; 90686; 93005; 93010; 94640; 94667; 94668; 94762; 94799; 99285; C9803; G0008; J0131; J0690; J1170; J1650; J1885; J1956; J2175; J2250; J2270; J2405; J2704; J3010; J3370; J3490; J7030; J7060; J7121

== ENCOUNTER → 2020-03-06 | Outpatient (CLI) | payer OTHER ==
--- NOTE | 2020-03-06 17:06 | RADIOLOGY REPORT (SQ) ---
EXAM DESCRIPTION: CHEST 2 VIEWS IMAGES COMPLETED DATE/TIME: 03/06/2020 10:34 am REASON FOR STUDY: J93.9 PNEUMOTHORAX, UNSPECIFIED COMPARISON: 03/02/2020. EXAM PARAMETERS: NUMBER OF VIEWS: two views TECHNIQUE: Digital Frontal and Lateral radiographic views of the chest acquired. RADIATION DOSE: NA LIMITATIONS: none FINDINGS: LUNGS AND PLEURA: Right-sided pneumothorax slightly larger, roughly 10 to 15%. No mediast inal shift. Lungs otherwise clear. MEDIASTINUM AND HILAR STRUCTURES: No masses or contour abnormalities. HEART AND VASCULAR STRUCTURES: Heart normal size. No evidence for failure. BONES: No acute findings. HARDWARE: None in the chest. OTHER: No other significant finding. IMPRESSION: THE RIGHT-SIDED PNEUMOTHORAX IS SLIGHTLY LARGER, ROUGHLY 10 TO 15%. COMMENT: The findings were sent to the Radiology Results Communication [facility] at 17:00 on 03/06/2020 to be communicated to a licensed caregiver. TECHNICAL DOCUMENTATION: JOB ID: [id number] 2010 [employer]- All Rights Reserved Reading location - IP/workstation name: [email or web address]
== END ==
LOC: RAD 09:33
PROVIDERS: ATTEND Surgery
DX: J93.9 Pneumothorax, unspecified (principal)
CPT/HCPCS: 71046

== ENCOUNTER → 2020-04-01 | Outpatient (CLI) | payer OTHER ==
--- NOTE | 2020-04-01 09:41 | RADIOLOGY REPORT (SQ) ---
EXAM DESCRIPTION: CHEST 2 VIEWS IMAGES COMPLETED DATE/TIME: 04/01/2020 9:31 am REASON FOR STUDY: J93.9 PNEUMOTHORAX, UNSPECIFIED Z87.01 PERSONAL HISTORY OF PNEUMONIA (RECUR COMPARISON: 03/19/2020 EXAM PARAMETERS: NUMBER OF VIEWS: two views TECHNIQUE: Digital Frontal and Lateral radiographic views of the chest acquired. RADIATION DOSE: NA LIMITATIONS: none FINDINGS: LUNGS AND PLEURA: Persistent right pleural effusion and bilateral perihilar and basilar in filtrates. Overall aeration is slightly improved when compared to 03/19/2020. No pneumothorax. MEDIASTINUM AND HILAR STRUCTURES: No masses or contour abnormalities. HEART AND VASCULAR STRUCTURES: Heart normal size. No evidence for failure. BONES: No acute findings. HARDWARE: None in the chest. OTHER: No other significant finding. IMPRESSION: Persistent right pleural effusion as well as perihilar and basilar infiltrates right gre ater than left. Overall findings are slightly improved when compared to 03/19/2020 TECHNICAL DOCUMENTATION: JOB ID: [id number] 2010 [employer]- All Rights Reserved Reading location - IP/workstation name: [email or web address]
== END ==
LOC: RAD 09:13
PROVIDERS: ATTEND Surgery
DX: J93.9 Pneumothorax, unspecified (principal); Z87.01 Personal history of pneumonia (recurrent)
CPT/HCPCS: 71046

== ENCOUNTER → 2020-04-15 | Outpatient (CLI) | payer OTHER ==
--- NOTE | 2020-04-15 12:54 | RADIOLOGY REPORT (SQ) ---
EXAM DESCRIPTION: CHEST 2 VIEWS IMAGES COMPLETED DATE/TIME: 04/15/2020 9:27 am REASON FOR STUDY: J93.9 PNEUMOTHORAX, UNSPECIFIED COMPARISON: 04/01/2020 EXAM PARAMETERS: NUMBER OF VIEWS: two views TECHNIQUE: Digital Frontal and Lateral radiographic views of the chest acquired. RADIATION DOSE: NA LIMITATIONS: none FINDINGS: LUNGS AND PLEURA: Persistent right pleural effusion. Slightly improved ill-defined opacif ication in the right lower lung field. MEDIASTINUM AND HILAR STRUCTURES: No masses or contour abnormalities. HEART AND VASCULAR STRUCTURES: Heart normal size. No evidence for failure. BONES: No acute findings. HARDWARE: None in the chest. OTHER: No other significant finding. IMPRESSION: Right pleural effusion. Limited airspace disease in the right lower lobe, atelectasis v ersus pneumonia. TECHNICAL DOCUMENTATION: JOB ID: [id number] 2010 [employer]- All Rights Reserved Reading location - IP/workstation name: [email or web address]
== END ==
LOC: RAD 09:05
PROVIDERS: ATTEND Surgery
DX: J93.9 Pneumothorax, unspecified (principal); Z87.01 Personal history of pneumonia (recurrent)
CPT/HCPCS: 71046

== ENCOUNTER → 2020-04-24 | Outpatient (CLI) | payer OTHER ==
--- NOTE | 2020-04-24 16:26 | RADIOLOGY REPORT (SQ) ---
EXAM DESCRIPTION: CT CHEST WITH IMAGES COMPLETED DATE/TIME: 04/24/2020 4:07 pm REASON FOR STUDY: (J90)PLEURAL EFFUSION, NOT ELSEWHERE CLASSIFIED J90 PLEURAL EFFUSION, NOT ELSEWHE RE CLASSIFIED COMPARISON: CT chest dated 03/17/2020, conventional radiograph dated 04/15/2020 TECHNIQUE: CT scan of the chest performed using helical scanning technique with dynamic intravenous contrast injection. Images reviewed with lung, soft tissue and bone windows. Reconstructed coronal and sagittal MPR and MIP images reviewed. All images stored on PACS. All CT scanners at this facility use dose modulation, iterative reconstruction, and/or weight based d osing when appropriate to reduce radiation dose to as low as reasonably achievable (ALARA). [facility]: Dose Right [facility]: CareDose [facility]: Dose Right [facility]: Teradose 4D [facility]: ViRTUAL INTERACTiVE CONTRAST TYPE AND DOSE: contrast/concentration: Isovue 350.00 mmol/ml; Total Contrast Delivered: 80. 0 ml; Total Saline Delivered: 45.0 ml RENAL FUNCTION: None required. The patient is less than 50 years old. RADIATION DOSE: CT Rad equipment meets quality standard of care and radiation dose reduction techniq ues were employed. CTDIvol: 3.1 mGy. DLP: 136 mGy-cm. . LIMITATIONS: None. FINDINGS: LUNGS AND PLEURA: Persistent subpleural right upper lobe and right basilar airspace diseas e significantly improved from prior study. Right-sided pleural effusion is decreasing in size. Ther e is a focal loculated collection laterally on the right this collection measures 2.9 x 2.0 cm. Ther e is a small layering right effusion. The left lung field remains clear. HILAR AND MEDIASTINAL STRUCTURES: No identified masses or abnormal nodes. HEART AND VASCULAR STRUCTURES: No aneurysm or dissection. No central pulmonary emboli. No pericardi al effusion. HARDWARE: None in the chest. UPPER ABDOMEN: No significant findings. Limited exam. THYROID AND OTHER SOFT TISSUES: No masses. No adenopathy. BONES: No significant finding. OTHER: No other significant finding. IMPRESSION: Decreasing airspace disease and loculated right-sided pleural effusions when compared to prior study. TECHNICAL DOCUMENTATION: JOB ID: [id number] Quality ID # [id number]: Final reports with documentation of one or more dose reduction techniques (e.g., Au tomated exposure control, adjustment of the mA and/or kV according to patient size, use of iterative reconstruction technique) 2010 [employer]- All Rights Reserved Reading location - IP/workstation name: [email or web address]
== END ==
LOC: RAD 15:19
PROVIDERS: ATTEND Surgery
DX: J90 Pleural effusion, not elsewhere classified (principal)
CPT/HCPCS: 71260